=== PATIENT | female | born 1970 | race Caucasian/White ===

== ENCOUNTER 2018-07-08 13:23 | Inpatient (IN) | payer BC ==
--- NOTE | 2018-07-08 13:50 | ED ---
Complex/Multi-Sys Presentation - HPI Summary HPI Summary: This patient is a 48 year old F transferred from [place] to ED who was supposed to be a direct admit to [facility] but was denied due to not having a life vest unit on. Therefore, she will need to be on telemetry. The patient rates the pain 0/10 in severity. Symptoms aggravated by nothing. Symptoms alleviated by nothing. PMHx of gastric bipass, with complications including v-tach cardiac arrest on 05/29. - History Of Current Complaint Chief Complaint: EDGeneral Time Seen by Provider: 07/08/18 13:35 Hx Obtained From: Patient Onset/Duration: Lasting Hours, Still Present Severity Currently: None Aggravating Factor(s): nothing Alleviating Factor(s): nothing - Allergies/Home Medications Allergies/Adverse Reactions: Allergies Allergy/AdvReac Type Severity Reaction Status Date / Time fluconazole Allergy Unknown Verified 07/08/18 13:38 Reaction Details PMH/Surg Hx/FS Hx/Imm Hx Endocrine/Hematology History: Denies: Hx Diabetes Cardiovascular History: Reports: Hx Cardiac Arrest - v-tach cardiac arrest on Denies: Hx Hypertension GI History: Reports: Other GI Disorders - gastro bypass Infectious Disease History: No Infectious Disease History: Denies: Traveled Outside the [place] in Last 30 Days - Family History Known Family History: Positive: Cardiac Disease, Diabetes, Other Family History: CHF, sleep apnea, PNA - Social History Alcohol Use: None Substance Use Type: Reports: None Smoking Status (MU): Never Smoked Tobacco Review of Systems Positive: Other - was supposed to go to rehab, does not have life vest unit on, will need telemetry. Negative: Fever, Chills Negative: Erythema Negative: Sore Throat Negative: Chest Pain Negative: Shortness Of Breath, Cough Negative: Abdominal Pain, Vomiting, Nausea Negative: dysuria, hematuria Negative: Myalgia, Edema Negative: Rash Neurological: Other - denies dizziness All Other Systems Reviewed And Are Negative: Yes Physical Exam - Summary Physical Exam Summary: Constitutional: Well-developed, Well-nourished, Alert. (-) Distressed Skin: Warm, Dry HENT: Normocephalic; Atraumatic Eyes: Conjunctiva normal Neck: Musculoskeletal ROM normal neck. (-) JVD, (-) Stridor, (-) Tracheal deviation Cardio: Rhythm regular, rate normal, Heart sounds normal; Intact distal pulses; The pedal pulses are 2+ and symmetric. Radial pulses are 2+ and symmetric. (-) Murmur Pulmonary/Chest wall: Effort normal. (-) Respiratory distress, (-) Wheezes, (-) Rales Abd: Soft, (-) epigastric tenderness, (-) Distension, (-) Guarding, (-) Rebound Musculoskeletal: (-) Edema Lymph: (-) Cervical adenopathy Neuro: Alert, Oriented x3 Psych: Mood and affect Normal Triage Information Reviewed: Yes Vital Signs On Initial Exam: Initial Vitals Temp Pulse Resp BP Pulse Ox 97.5 F 90 20 123/68 95 07/08/18 13:37 07/08/18 13:37 07/08/18 13:37 07/08/18 13:37 07/08/18 13:37 Vital Signs Reviewed: Yes Diagnostics - Vital Signs Vital Signs Temp Pulse Resp BP Pulse Ox 07/08/18 13:37 97.5 F 90 20 123/68 95 - Laboratory Result Diagrams: 07/12/18 06:48 07/12/18 06:48 Lab Statement: Any lab studies that have been ordered have been reviewed, and results considered in the medical decision making process. - EKG 1352 Cardiac Rate: NL - 93 BPM EKG Rhythm: Sinus Rhythm Summary of EKG Findings: No STEMI Complex Multi-Symp Course/Dx Assessment/Plan: This patient is a 48 year old F transferred from [place] to ED who was supposed to be a direct admit to [facility] but was denied due to not having a life vest unit on. EKG done at 1352 reveals NSR at 93 BPM and no STEMI. The patient will be admitted to Dr. Arndt. Patient understands and agrees with this plan. - Diagnoses Provider Diagnoses: Tachyarrhythmia - Physician Notifications Discussed Care Of Patient With: Michelle Arndt Time Discussed With Above Provider: 16:20 Instructed by Provider To: Admit As Inpatient Discharge - Sign-Out/Discharge Documenting (check all that apply): Patient Departure - admit - Discharge Plan Condition: Stable Disposition: ADMITTED TO [facility] - Billing Disposition and Condition Condition: STABLE Disposition: Admitted to [facility] - Attestation Statements Document Initiated by Scribe: Yes Documenting Scribe: Ruperto Gates Provider For Whom Scribe is Documenting (Include Credential): Gopi Packer MD Scribe Attestation: I, Ruperto Gates, scribed for Gopi Packer MD on 07/12/18 at 1136. Scribe Documentation Reviewed: Yes Provider Attestation: The documentation as recorded by the scribe, Ruperto Gates accurately reflects the service I personally performed and the decisions made by me, Gopi Packer MD
[2018-07-08 13:59] LABS: Hematocrit 25 % (35-47); Hemoglobin 8.5 g/dl (12.0-16.0); Mean Corpuscular HGB Conc 34 g/dl (31-36); Mean Corpuscular Hemoglobin 31 pg (27-31); Mean Corpuscular Volume 91 fL (80-97); Mean Platelet Volume 6.6 um3 (7.4-10.4); Platelet Count 513 10^3/ul (150-450); Red Blood Count 2.78 10^6/ul (4.00-5.40); Red Cell Distribution Width 19 % (10.5-15); White Blood Count 10.9 10^3/ul (3.5-10.8)
[2018-07-08 14:18] LABS: EGFR Non-African American 115.5 (>60)
[2018-07-08] MEDS ORDERED: Fluticasone NASAL SPRAY 50MCG* 16 gm SPRAY BTL BOTH NARES PRN (17:49)
[2018-07-08] MEDS ORDERED: Bisacodyl SUPP* 10 MG SUPP PR PRN (18:15)
[2018-07-08] MEDS: Enoxaparin(*) 40 MG/0.4 ML SYR SUBCUT SCH (20:10)
[2018-07-08] MEDS ORDERED: Gabapentin TAB(NF) 600 MG PO SCH (21:00)
[2018-07-08] MEDS: Acetaminophen TAB* 325 MG PO PRN (21:18)
[2018-07-08] MEDS: Metoprolol Tartrate TAB* 50 mg PO SCH (21:18)
[2018-07-08] MEDS ORDERED: traMADol TAB* 50 MG PO ONE (21:45)
[2018-07-08 22:28] LABS: ABS Basophils 0.1 10^3/ul (0-0.2); ABS Eosinophils 0.1 10^3/ul (0-0.6); ABS Neutrophils 7.3 10^3/ul (1.5-7.7); ABS Nucleated RBC 0 10^3/ul; Eosinophil % 1.1 % (0-6); Hematocrit 25 % (35-47); Hemoglobin 8.2 g/dl (12.0-16.0); Lymphocyte % 19.4 % (25-47); Mean Corpuscular HGB Conc 33 g/dl (31-36); Mean Corpuscular Hemoglobin 30 pg (27-31); Mean Corpuscular Volume 91 fL (80-97); Mean Platelet Volume 6.8 um3 (7.4-10.4); Nucleated Red Blood Cells % 0.1; Platelet Count 480 10^3/ul (150-450); Red Cell Distribution Width 19 % (10.5-15); White Blood Count 10.5 10^3/ul (3.5-10.8)
[2018-07-08] MEDS ORDERED: Iohexol 350* (CONTRAST) 500 ML MDV IV ONE (23:38)
[2018-07-09] MEDS: Morphine VIAL* 4 MG/ML VIAL (1 ml vial) IV PRN ×2 (01:02→09:29)
--- NOTE | 2018-07-09 02:07 | RAD ---
EXAM: CT Angiography Chest With Intravenous Contrast EXAM DATE/TIME: 07/09/2018 1:24 AM CLINICAL HISTORY: 48 years old, female; Pain; Chest wall pain; Prior surgery; Surgery date: 6+ months; Surgery type: Gastric bypass/cardiac arrest post SX /hx of bilateral breast reduction; Additional info: Chest pain TECHNIQUE: Axial computed tomographic angiography images of the chest with intravenous contrast using CT angiography protocol. All CT scans at this facility use at least one of these dose optimization techniques: automated exposure control; mA and/or kV adjustment per patient size (includes targeted exams where dose is matched to clinical indication); or iterative reconstruction. Coronal and sagittal reformatted images were created and reviewed. MIP reconstructed images were created and reviewed. CONTRAST: 80 ml of OMNIPAQUE 350 administered intravenously. COMPARISON: No relevant prior studies available. FINDINGS: Pulmonary arteries: Pulmonary arteries are well opacified to the subsegmental branches. Dilated main pulmonary artery measuring 3.5 cm. No filling defects throughout the pulmonary artery tree. Aorta: Normal caliber aorta with no evidence of dissection or rupture. Lungs: Scattered lung parenchymal scarring including apical posterior segment right upper lobe, superior and inferior lingula, and basilar segments left lower lobe with associated mild traction bronchiectasis. No nodules or consolidation. No peribronchial thickening. Pleural space: Normal. No pneumothorax. No pleural effusion. Heart: Normal. No cardiomegaly. No pericardial effusion. Thyroid: No thyroid nodules. Bones/joints: No fractures. No suspicious bone lesions. Soft tissues: Normal. Lymph nodes: Normal. No enlarged lymph nodes. Stomach and bowel: Partially visualized gastric bypass with a gas containing tract extending to the peritoneum (series 2, image 103). IMPRESSION: 1. No pulmonary emboli. Findings which in the proper clinical setting can be seen in pulmonary hypertension. 2. 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 Consider followup with abdomen pelvis CT. 3. Scattered bilateral lung parenchymal scarring. To contact [facility] with a general question: Operations Center - [phone] For direct physician to physician contact: Physician Hotline - [phone] [facility] ([facility] Facility ID #[id number])
--- NOTE | 2018-07-09 04:15 | HP ---
CC: Jas Garza DO; Dr. Rangel; Dr. Carmona; Dr. Bam Davidson; Dr. Santino Rodrigez * HISTORY AND PHYSICAL: DATE OF ADMISSION: 07/08/18 TIME OF EVALUATION: 5:30 p.m. PRIMARY CARE PROVIDER: Jas Garza DO. REFERRING PHYSICIAN: Dr. Rangel CONSULTING HARP ACTION ASSEMBLER: Dr. Carmona EP HARP ACTION ASSEMBLER: Dr. Bam Davidson GENERAL SURGEON: Gurpreet Leonmira CHIEF COMPLAINT: "They sent me here." HISTORY OF PRESENT ILLNESS: Ms. Groves is a 48-year-old lady with a complex past medical history that includes obesity and hypertension. The patient underwent a gastric bypass at [facility] on 04/27/18. She had a very complicated, turbulent postop course including gastric perforation with need for surgical repair, prolonged intubation requiring tracheostomy, intraabdominal infection and abscesses that grew enterobacter, alpha hemolytic strep, C. diff colitis treated with antibiotics. On 05/29/18, the patient had polymorphic V-tach cardiac arrest and she was treated with amiodarone with plan for possible ICD in the future. Despite all these complications, the patient improved and she was transferred to long-term acute care facility ([facility]). She was weaned from vent. Her tracheostomy was closed and she is tolerating a oral diet. She was referred to [facility] for rehab at [facility], but when she arrived she was noted to not have LifeVest, so for the reason she was referred to the emergency room for further evaluation. Regarding her polymorphic VT, according to records, she had no further episodes of V-tach while at the [facility] located within [facility]. She was initially managed with IV amiodarone that was changed to oral when she was able to take p.o. again. The patient had been seen by Dr. Jimenez (operator weapon locating radar at [facility]) and as per records, the recommendation was to await at least 1 to 2 months before ICD implantation to make sure that she did not any residual infection before she could be evaluated for an ICD. The plan: EP had recommended LifeVest on discharge and ICD later, once the abdominal infection is resolved. As per discharge summary, "As the patient was critically ill when she had polymorphic VT, I am not very concerned that she will have another episode as she is stable. We will discharge the patient without LifeVest now (the patient is aware of the risk of being discharged without a LifeVest and she agrees). She will be seen by Cardiology stat at the acute rehab facility. Further decision making will happen after she has been seen by Cardiology. She will also be evaluated by EP as an outpatient in [place], [place]. Telemetry here has been unremarkable so far. EKG also not concerning for prolonged QT." Upon arrival to [facility], Dr. Rangel was concerned with the indication for LifeVest and the fact that his unit is not monitored by telemetry, so she was referred to the emergency room and they planned to have her admitted to telemetry now while we clarify the indications for LifeVest/ICD placement. The patient offers no complaints at this time. She is only frustrated about being in the emergency room. PAST MEDICAL HISTORY: 1. Morbid obesity status post Tila-en-Y gastric bypass at [facility] on 06/26/18, complicated by GJ anastomotic leak, GG fistula and intraabdominal abscesses with peritonitis secondary to gastric leak from recent Tila-en-Y and abdominal abscesses that grew enterobacter, eikenella, lactobacillus, and doron; status post IR drain of intraabdominal abscesses. 2. C. diff colitis. 3. Polymorphic ventricular tachycardia cardiac arrest on 05/29/18. 4. Acute respiratory failure with hypoxia requiring intubation and mechanical ventilation, tracheostomy. 5. Severe critical illness myopathy. 6. Hypertension. 7. Stage 2 to 3 decubitus, present on admission. 8. Oral candidiasis. 9. Severe protein-calorie malnutrition. 10. Delirium. MEDICATIONS LIST: 1. Acetaminophen 325 mg p.o. q.6 hours p.r.n. pain or fever. 2. Amiodarone 200 mg p.o. daily. 3. Bisacodyl 2 mg per rectum daily as needed for constipation. 4. Ferrous sulfate 325 mg p.o. daily. 5. Magnesium oxide 400 mg p.o. daily. 6. Metoprolol tartrate 50 mg p.o. b.i.d. ALLERGIES: With FLUCONAZOLE, the patient had QT prolongation. REVIEW OF SYSTEMS: A 14-point review of systems was performed and all the pertinent negative and positive findings are in the HPI. PHYSICAL EXAMINATION GENERAL: The patient is a middle aged lady lying on the stretcher, in no acute distress. VITAL SIGNS: Temperature 97.5, heart rate is 98, respiratory rate is 21, oxygen saturation is 95% on room air, blood pressure is 123/86. HEENT: Pupils are equal. Moist mucous membranes. She has a well healed tracheostomy site. CHEST: Breath sounds bilaterally in both bases. CVS: Normal S1, S2. Regular rate and rhythm. ABDOMEN: Obese, soft. There is a midline wound with a clean dressing, intact. She has multiple other small incisions where she had drains in the past. She has a G-tube in place in the left upper quadrant. Her abdomen is soft, nontender. Bowel sounds are present. EXTREMITIES: She has central muscle atrophy and mild edema. NEUROLOGIC: She is alert, awake, oriented x3. She is able to move all 4 extremities but she is considerably weak. LABORATORY AND IMAGING DATA: In the ED, the patient had a CBC that showed WBC of 10.9, hemoglobin of 8.5, hematocrit 25, platelets of 113. Chemistry showed a sodium of 137, potassium 4.3, chloride of 99, bicarb 27, BUN 33, creatinine 0.56, glucose 115, calcium 10.3, phosphorus 4.9, magnesium 2.2. LFTs are normal except for alk phos 274. EKG showed sinus rhythm at 93 beats per minute. There is borderline left axis deviation. QTC is 464. ASSESSMENT AND PLAN: Mrs. Groves is a 48-year-old lady with past medical history that includes obesity and hypertension who since April has had prolonged hospital stays associated with Tila-en-Y gastric bypass with multiple complications, respiratory failure, polymorphic ventricular tachycardia cardiac arrest who was referred from our rehab unit to the emergency room as she was discharged without a LifeVest and they need the situation to be clarified before receiving her in the rehab unit. 1. Polymorphic ventricular tachycardia. At this point, I have the discharge summary from the long-term acute care [facility], and I am going to get the records from [facility] to see the supervisor case loading, operator weapon locating radar consultation regarding ICD implantation. For now, she will be admitted under observation to telemetry and we are going to monitor her rhythm and depending on Cardiology's opinion, we will make arrangements for LifeVest placement. We are going to continue amiodarone and metoprolol. Her magnesium and potassium are normal. 2. Status post Tila-en-Y with multiple complications and infection. As per records, the patient's antibiotic course was completed. She is still has a midline wound that is wound and we will request a wound care consultation and also for her stage 2 decubitus that are present on admission. 3. Severe critical illness myopathy. PT/OT evaluation was requested. 4. Hypertension. Her blood pressure is controlled and we are going to continue metoprolol. 5. Stage 2 to 3 decubitus ulcer. A wound care consultation was requested. 6. DVT prophylaxis. The patient has a score of 3 on DVT prophylaxis risk assessment guide and she will be started on Lovenox. 7. Severe protein-calorie malnutrition. I am going to ask nutrition evaluation , as per records, the patient is on a regular diet during the day and tube feeds at night. 8. Code status is full. TIME SPENT: Approximately 60 minutes was spent to with the patient to review medical records, review physical examination to complete this admission, more than half of this time was spent [id number] with the patient and coordination of care. [id number]/[facility] #: [id number] DENICE
[2018-07-09 06:24] LABS: Hematocrit 25 % (35-47); Hemoglobin 8.4 g/dl (12.0-16.0); Mean Corpuscular HGB Conc 34 g/dl (31-36); Mean Corpuscular Hemoglobin 31 pg (27-31); Mean Corpuscular Volume 91 fL (80-97); Mean Platelet Volume 6.6 um3 (7.4-10.4); Platelet Count 466 10^3/ul (150-450); Red Blood Count 2.72 10^6/ul (4.00-5.40); Red Cell Distribution Width 18 % (10.5-15); White Blood Count 8.5 10^3/ul (3.5-10.8)
[2018-07-09] MEDS: Acetaminophen TAB* 325 MG PO PRN (06:42)
[2018-07-09 06:47] LABS: EGFR Non-African American 108.8 (>60)
[2018-07-09 07:13] LABS: ABS Basophils 0.1 10^3/ul (0-0.2); ABS Eosinophils 0.1 10^3/ul (0-0.6); ABS Lymphocytes 1.8 10^3/ul (1.0-4.8); ABS Monocytes 0.8 10^3/ul (0-0.8); ABS Neutrophils 5.7 10^3/ul (1.5-7.7); ABS Nucleated RBC 0 10^3/ul; Eosinophil % 1.5 % (0-6); Lymphocyte % 21.3 % (25-47); Nucleated Red Blood Cells % 0.1
--- NOTE | 2018-07-09 08:05 | RAD ---
HISTORY: right rib pain COMPARISONS: CT dated July 09, 2018. VIEWS: 1: frontal AP view of the chest at 9:55 PM FINDINGS: LINES AND TUBES: None. CARDIOMEDIASTINAL SILHOUETTE: The cardiomediastinal silhouette is normal for portable technique. PLEURA: The costophrenic angles are sharp. No pleural abnormalities are noted. LUNG PARENCHYMA: There is minimal linear atelectasis versus pleural parenchymal scarring of the left lung base. ABDOMEN: The upper abdomen is clear. There is no subphrenic gas. A radiopaque foreign object is noted overlying the left upper quadrant. On the torch operator film of the CT performed the same date, this is not present and is presumed to be artifactual. BONES AND SOFT TISSUES: No bone or soft tissue abnormalities are noted. IMPRESSION: NO ACTIVE CARDIOPULMONARY DISEASE. R1NF
[2018-07-09] MEDS: MAGNESIUM OXIDE 500 MG PO SCH (08:07)
[2018-07-09] MEDS: Ferrous Sulfate TAB* 325 MG PO SCH (08:08)
[2018-07-09] MEDS: Metoprolol Tartrate TAB* 50 mg PO SCH ×2 (08:08→19:53)
[2018-07-09] MEDS ORDERED: Ramipril CAP* 5 MG PO SCH (09:00)
[2018-07-09] MEDS ORDERED: Amiodarone TAB* 200 MG PO SCH (09:00)
[2018-07-09] MEDS ORDERED: Perflutren Lipid Microsphere* 3 ML VIAL ONE (09:59)
--- NOTE | 2018-07-09 12:28 | PN ---
Subjective Date of Service: 07/09/18 Interval History: HOSPITALIST PROGRESS NOTE Patient seen and examined at bedside. Care reviewed and d/w Juan Chavez RN. She feels very tired today. After ambulance trip, spending a long time in ED, she feels exhausted. Has some back pain and requests Morphine. Tolerating diet well with no N/V. She also developed urinary retention 500ml earlier today. Tele reviewed and shows sporadic PVCs, no Vtach. Family History: Unchanged from Admission Social History: Unchanged from Admission Past Medical History: Unchanged from Admission Objective Active Medications: Acetaminophen (Tylenol Tab*) 325 mg PO Q6H PRN PRN Reason: PAIN Last Admin: 07/09/18 06:42 Dose: 325 mg Amiodarone HCl (Cordarone Tab*) 200 mg PO DAILY [facility] Last Admin: 07/09/18 08:08 Dose: 200 mg Bisacodyl (Dulcolax Supp*) 10 mg OH DAILY PRN PRN Reason: CONSTIPATION Enoxaparin Sodium (Lovenox(*)) 40 mg SUBCUT Q24H [facility] Last Admin: 07/08/18 20:10 Dose: 40 mg Ferrous Sulfate (Ferrous Sulfate Tab*) 325 mg PO DAILY [facility] Last Admin: 07/09/18 08:08 Dose: 325 mg Metoprolol Tartrate (Lopressor Tab*) 50 mg PO BID [facility] Last Admin: 07/09/18 08:08 Dose: 50 mg Morphine Sulfate (Morphine Vial*) 2 mg IV Q4H PRN PRN Reason: PAIN - MILD Last Admin: 07/09/18 09:29 Dose: 2 mg Non Formulary* ( Magnesium Oxide [ Magnesium Oxide] 500 Mg) 500 mg PO DAILY [facility] Last Admin: 07/09/18 08:07 Dose: Not Given Vital Signs - 8 hr 07/09/18 07/09/18 07/09/18 07:26 09:29 10:36 Temperature 98.9 F Pulse Rate 94 Respiratory 16 16 16 Rate Blood Pressure 112/68 (mmHg) O2 Sat by Pulse 92 Oximetry Oxygen Devices in Use Now: None Appearance: Pleasant lady lying in bed in NAD Eyes: No Scleral Icterus Ears/Nose/Mouth/Throat: Mucous Membranes Moist Neck: Trachea Midline Respiratory: Symmetrical Chest Expansion and Respiratory Effort, Clear to Auscultation Cardiovascular: RRR - Normal S1 and S2 Abdominal: - - Soft, mild incisional tenderness, CDI to midline wound, multiple smaller surgical incisions where she had drains. G tube in place, BS+ Neurological: Alert and Oriented x 3 Result Diagrams: 07/09/18 06:15 07/09/18 06:15 Assess/Plan/Problems-Billing Assessment: Mrs Groves is a 48yo F with PMH of obesity s/p gastric bypass 04/24 with multiple complications including GJ anastomotic leak, GG fistula, intraabdominal abscesses/peritonitis, C diff colitis, respiratory failure requiring trach, polymorphic Vtach arrest, who was transferred to [facility] for rehab , but as she did not have a Life Vest, she was transferred to ED for further evaluation. - Patient Problems (1) Polymorphic ventricular tachycardia Comment: - Awaiting for the rest of her medical records. - Awaiting echo result and Cardiology consult re: indication and order for Life Vest. - Continue Amiodarone and Metoprolol. (2) Urinary retention Comment: - Bladder scan and straight cath as needed. (3) HTN (hypertension) Comment: - Controlled. - Continue Metoprolol. (4) Decubitus ulcer Comment: - Present on admission. - Will follow wound care recommendations. (5) Critical illness myopathy Comment: - Continue PT/OT as tolerated. (6) DVT prophylaxis Comment: - Lovenox. (7) Full code status
[2018-07-09] MEDS: Neomycin/Polym/Bacit TOP OINT* 15 GM TOPICAL SCH (15:23)
--- NOTE | 2018-07-09 16:17 | ECHO ---
Patient: CARY DUMONT [facility] Rec#: [id number] : 1970 Date: 07/09/2018 Age: 48y Height: 172.72 cm / 68.0 in Weight: 97.07 kg / 213.9 lbs Sex: F BSA: 2.1 Room#: [facility] Admit Date#: 07/08/2018 Type: Inpatient Referring: Michelle Meek MD Reading: Ottoniel Santoyo MD [employer] Specialist: Sonja rAanaMAJOR CC: Jas Garza, DO Transthoracic Echocardiogram Indication: Abnormal EKG, VT arrest. BP: 113/69 HR: 130 Rhythm: Tachycardia Findings Technical Comments: The study is technically limited due to poor apical windows. Completed at 1100. Left Ventricle: The left ventricular chamber size is normal. There is no left ventricular hypertrophy. There is global hypokinesis of the left ventricle with minor regional variation. There is mild to moderately decreased left ventricular systolic function. The estimated ejection fraction is 40-45%. relatively more pronounced hypokinesis in the inferior and posterior segments. Abnormal left ventricular diastolic function is observed. Abnormal left ventricular diastolic filling is observed, consistent with impaired relaxation. Left Atrium: The left atrial chamber size is normal. Right Ventricle: Moderator Band present. The right ventricular cavity size is normal. The right ventricular global systolic function is mildly reduced. Right Atrium: The right atrial cavity size is normal. Aortic Valve: The aortic valve is trileaflet. There is no evidence of aortic valve thickening. There is no evidence of aortic regurgitation. There is no evidence of aortic stenosis. Mitral Valve: The mitral valve leaflets are mildly thickened. There is trace to mild mitral regurgitation. There is no evidence of mitral stenosis. Tricuspid Valve: The tricuspid valve leaflets are normal. There is trace tricuspid regurgitation. The right ventricular systolic pressure is estimated at 17 mmHg. No pulmonary hypertension is noted. There is no tricuspid stenosis. Pulmonic Valve: The pulmonic valve appears normal. There is mild pulmonic regurgitation. There is no pulmonic stenosis. Pericardium: There is no significant pericardial effusion. A pericardial fat pad is visualized. Aorta: There is no dilatation of the ascending aorta. There is no dilatation of the aortic arch. The aortic root is normal in size. Pulmonary Artery: The main pulmonary artery is not well visualized. Venous: The inferior vena cava appears normal in size. There is a greater than 50% respiratory change in the inferior vena cava dimension. Contrast: Definity was used to optimize study. 3 mL of diluted Definity were utilized. Intravenous contrast was used to enhance endocardial border definition. Conclusions There is global hypokinesis of the left ventricle with minor regional variation. There is mild to moderately decreased left ventricular systolic function. The estimated ejection fraction is 40-45%. relatively more pronounced hypokinesis in the inferior and posterior segments. Abnormal left ventricular diastolic filling is observed, consistent with impaired relaxation. The right ventricular global systolic function is mildly reduced. There is trace to mild mitral regurgitation. There is trace tricuspid regurgitation. The right ventricular systolic pressure is estimated at 17 mmHg. There is mild pulmonic regurgitation. Compared to 05/31/18, the inferior posterior, and lateral wall motion abnormalities were present but the EF was reported as 55-59% and the MR was described as eccentric and moderate to severe. Measurements Name Value Normal Range RVIDd (AP) 2D 3.9 cm (0.9 - 2.6) RVDdMajor (2D) 4.2 cm (2.2 - 4.4) RAd ISD 4CH 4.7 cm (3.4 - 4.9) RA (A4C)W 3.6 cm (2.9 - 4.6) IVSd (2D) 0.9 cm (0.6 - 1) LVPWd (2D) 0.8 cm (0.6 - 1) LVIDd (2D) 4.8 cm (3.6 - 5.4) LVIDs (2D) 3.6 cm - LV FS (2D) 25 % (25 - 45) Aortic Annulus 2.3 cm (1.4 - 2.6) Ao root diameter (2D) 3.3 cm (2.1 - 3.5) Ascending Ao 3.1 cm (2.1 - 3.4) Aortic arch 2.4 cm (1.8 - 3.4) LA dimension (AP) 2D 3.4 cm (2.3 - 3.8) LAd ISD 4CH 4.6 cm (2.9 - 5.3) LA ISD 4CH W 3.5 cm (2.5 - 4.5) Name Value Normal Range LA ESV SP 4CH (A/L) 31 ml - LA ESV SP 2CH (A/L) 61 ml - LA ESV BP (A/L) 47 ml - LA ESV BP (A/L) index 22 ml/m2 - LA ESV SP 4CH (MOD) 29 ml - LA ESV SP 2CH (MOD) 58 ml - Name Value Normal Range MV E-wave Vmax 0.61 m/sec - MV deceleration time 270.7 msec - MV A-wave Vmax 0.69 m/sec - MV E:A ratio 0.8 ratio - LV septal e' Vmax 0.04 m/sec - LV lateral e' Vmax 0.08 m/sec - LV E:e' septal ratio 15.25 ratio - LV E:e' lateral ratio 7.63 ratio - Name Value Normal Range AV Vmax 1.1 m/sec - AV VTI 17.5 cm - AV peak gradient 4.64 mmHg - AV mean gradient 2.24 mmHg - LVOT Vmax 0.82 m/sec - LVOT VTI 12.86 cm - LVOT peak gradient 2.7 mmHg - LVOT mean gradient 1.33 mmHg - LIBAN Vmax 0.7 m/sec - Name Value Normal Range TR Vmax 1.9 m/sec - TR peak gradient 14 mmHg - RAP 3 mmHg - RVSP 17 mmHg - IVC diameter 1.5 cm - Name Value Normal Range PV Vmax 0.68 m/sec - PV peak gradient 1.86 mmHg - MN end-diastolic Vmax 1.03 m/sec -
[2018-07-09] MEDS ORDERED: PROCHLORPERAZINE INJ 5 MG/ML 2 ML VIAL IV PRN (16:35)
[2018-07-09] MEDS: Enoxaparin(*) 40 MG/0.4 ML SYR SUBCUT SCH (17:16)
--- NOTE | 2018-07-09 18:00 | CONS ---
CC: Dr. Bam Davidson; Dr. Santino Rodrigez; Jas Garza DO; Dr. Rangel; Dr. Santoyo. CARDIOLOGY CONSULTATION: DATE OF CONSULT: 07/09/18. CONSULTING PHYSICIAN: Dr. Da Silva. REASON FOR EVALUATION: Ventricular tachycardia. HISTORY OF PRESENT ILLNESS: History is obtained from the multiple records from her recent prolonged hospitalization and from the patient and Dr. Da Silva's note on 07/08/18. This is a very pleasant 48-year-old woman, who was in her usual state of health with borderline diabetes, borderline blood pressures until she went for gastric bypass surgery at [facility] on 04/27/18. She had a very complicated postoperative course that included hypotension and bradycardia. A CT was negative for pulmonary embolism, but did reveal air in the abdomen and a perforated anastomosis. She had a repeat seven-hour surgery to repair that and was intubated from 05/01/18 to 05/12/18. She was weaned off BiPAP, but developed a pelvic abscess and respiratory distress, and was intubated on . On 05/26/18, she actually was found to have multiple recurrent abscesses and a low hemoglobin and she was transfused. She also underwent interventional radiology drainage of some abdominal lesions. On 05/26/18, she was also noted to be bradycardic down to the low 20s. On 05/29/18, she was on Diflucan and broad-spectrum antibiotics and Precedex. She became unresponsive after extubation and developed polymorphic VT. She apparently had CPR and was reintubated. She was in normal sinus rhythm after a minute. She was started on amiodarone. She underwent trach placement on 06/02/18. In the records that showed that she had had QT prolongation, although the EP consult and EKG is not available. The Diflucan was stopped and changed to another antifungal, caspofungin on 05/29/18 due to QT prolongation and polymorphic VT. It seems as though the trach was reversed on 07/02/18. Of note, she had an echo preop in February, which was reported as EF of 55% to 60%, grade 1 diastolic dysfunction, trace MR, trace TR, normal PA pressure. However, on the echo from 05/29/18, post cardiac arrest on 05/31/18 revealed an EF of 55%, moderate inferior hypokinesia with possible eccentric MR and was suggested it be repeated when she was feeling better. It was mentioned that on 06/25/18, that they had the case with Dr. Jimenez of the EP. It was recommended that she have ICD implantation , but wait at least 1 to 2 months to make sure her infection had resolved and to continue amiodarone. It was also mentioned later in the chart that she was supposed to have a LifeVest in the interim until decision can be made to have ICD placement. The echo from 05/31/18, revealed moderate-sized inferior posterior lateral wall motion abnormality with hypokinesis to akinesis of the segments, qualitative EF was graded at 55 to 59%, [id number] eccentric MR probably from regional wall motion abnormality. Consider JOSE to exclude partial valve rupture, endocarditis. Tricuspid valve was inadequately visualized. Limited image resolution makes it impossible to assess for tricuspid mass, thrombus, vegetation or abscess. The patient was felt stable for transfer to rehab, however, the plan initially was to obtain a LifeVest for her prior to discharge. On the day of discharge, apparently the facility physician decided that she was low risk and was transferred without the defibrillator for a LifeVest. Because of the inability to be monitored on PMRU, she was admitted to telemetry and I was asked to regarding recommendations concerning her management. She denies any palpitations, syncope or near syncope prior to her surgery or since she has been awake and she was unaware of much of her hospitalization. She denies that she was limited prior to the surgery. She said that she was pretty active and worked out at gym for 30 minutes several days a week. She also worked as a special police officer and was able to walk for 3 to 4 miles a day at work. She denies previous murmurs or rheumatic heart disease. PAST MEDICAL HISTORY: Includes: 1. Borderline hypertension. 2. Borderline diabetes. 3. She denies hyperlipidemia or tobacco use. 4. She has a history of obesity. Her hospitalization from April until June is characterized by Tila-en-Y gastric bypass at [facility], complicated by gastroduodenal anastomotic leak, GG fistula and intraabdominal abscesses with peritonitis secondary to gastric leak from the Tila-en-Y. Her abdominal abscesses grew enterobacter, eikenella, lactobacillus, and doron. She was status post Interventional Radiology drainage of the intraabdominal abscesses. 5. C. difficile colitis. 6. Polymorphic VT. 7. Cardiac arrest on 05/29/18, possibly related to hypoxemia and QT prolongation possibly related to Diflucan. 8. Acute respiratory failure with hypoxia, requiring intubation, mechanical ventilation and tracheostomy. 9. Severe critical illness myopathy 10. Stage 2 to 3 decubitus present on admission to this hospitalization. 11. Oral candidosis, 12. Severe protein-calorie malnutrition. 13. LV dysfunction post arrest ?etiology PAST SURGICAL HISTORY: Includes: 1. Tila-en-Y on 04/27/18 as well as multiple procedures and surgeries after that complicated course. 2. She also has a history of right shoulder rotator cuff repair. 3. Breast reduction. 4. Tubal ligation. MEDICATIONS: Her medications as an inpatient include: 1. Acetaminophen. 2. Amiodarone 200 mg daily. 3. Dulcolax 10 mg daily p.r.n. 4. Lovenox 40 mg subcu q.24. 5. Ferrous sulfate 325 a day. 6. Metoprolol tartrate 50 mg b.i.d. 7. Morphine 2 mg IV q.4 hours. 8. Magnesium oxide 500 mg daily. FAMILY HISTORY: She has two children. Her mother of rectal cancer at 66. Brother is alive and well. Father is alive at 72 with COPD, CHF, diabetes and [employer] exposure. SOCIAL HISTORY: She has been living with her partner for 16 years and is engaged to be . She works as a reserve officer. REVIEW OF SYSTEMS: Review of systems x12 was negative except as above. She was nauseous and vomiting when I came in the room, she said that she has had that before on narcotics. She had not needed any narcotics for pain relief for the last two weeks and has not had any nausea, vomiting. Today, she had some back and took narcotics for the first time in a while and developed nausea and some dry heaves. PHYSICAL EXAM: She is a well-developed, well-nourished female, no apparent distress. Weighs 192 pounds. She reports that her weight was 233 prior to the surgery. Blood pressure 112/68, heart rate is 94, temperature 98.9. No significant JVD. Carotids 2+ without bruits. No cervical adenopathy or thyromegaly. Extraocular muscles intact. Sclerae anicteric. There is a scar consistent with her tracheostomy, which appears to be dry and intact. Cardiac Exam: S1 and S2 with a soft 1/6 holosystolic murmur at the apex. Chest was clear except for some rales at the right bases, which mostly cleared with coughing. Abdomen: There is a feeding tube placed in the left upper quadrant. Bowel sounds present. Nontender. Femoral pulses intact without bruits. Distal pulses intact. No edema. Motor strength mildly decreased in the upper extremities, decreased in the lower extremities probably 3/5. Deep tendon reflexes 2/4 in the upper extremities, 1/4 in the lower extremities. She is alert and oriented x3. Skin turgor was normal. DIAGNOSTIC STUDIES/LAB DATA: Chest x-ray from 07/09/18 reveals no active cardiopulmonary disease. She had a CT scan last night which reveled no pulmonary emboli. Fistulous tract from the patient's gastric bypass to the peritoneum, consider follow up with abdominopelvic CT. Scattered bilateral lung parenchymal scarring. Pulse oximetry overnight was low about 6 minutes and 56 seconds at 1.7% of the time. Labs include white count 8.5, hemoglobin 8.4, hematocrit 25, platelet count of 466. Sodium 138, potassium of 4.3, chloride of 99. BUN of 30 and creatinine of 0.59. BUN/creatinine ratio of 50.8, magnesium of 2.3, troponin is 0.01, 0.01, 0.01 x3 separate times. EKG revealed sinus rhythm with normal QT and Q-waves in III and F. Poor R-wave progression. IMPRESSION AND PLAN: My impression is that Ms. Hatch has a complex history as mentioned above with a history of gastric bypass on 04/27/18 complicated by perforation of the gastric bypass, as well as peritenonitis, multiple infections , respiratory failure, and polymorphic VT arrest in the setting of hypoxemia, extubation, and QT prolongation on Diflucan and ertapenem. There is also some question as to whether she had MR and LV dysfunction post arrest based on the old records and echo. The patient denies being told of any infarct. After reviewing her extensive transfer notes, I do not see any documentation of troponin elevation, EKG changes and no mention of LV dysfunction other than the echocardiogram, although I do not have the cariology consults or the EP consults or ekg's or lab results, which may have been performed. At this point, it remains unclear whether the polymorphic VT was secondary to hypoxemia and QT prolongation due to medications, or whether this is a primary issue. The notes seem to indicate a recommendation for ICD senior care, although the indication is unclear at this point. I have attempted to contact Dr. Jimenez and I was able to reach him during a procedure. He was unable to provide any further information at that time. He plans on getting back to me later today after he has a chance to review his consult. For the time being , I have recommended the following: Would continue with telemetry monitoring. I have ordered a LifeVest given the recommendation from EP that she should have an ICD and be on LifeVest until an ICD can be implanted. We will await contact from Dr. Jimenez concerning his recommendations. We will obtain an echo to reassess her LV function. We will consider tapering down her amiodarone given my concerns about having committing her to a long-term amiodarone given her young age and the possibility of medication-induced QT prolongation. She is to avoid QT prolonging drugs in the future. We will try to maintain her potassium and magnesium in the normal range. We would check PFTs. We would follow her thyroid functions. She has a significant anemia and elevated BUN. This raises the possibility of GI bleeding. We will consider to follow her closely for resolution of her anemia. She may benefit from a formal EP consult at some point during her convalescence. She understands that we do not have an EP MD on inpatient staff. Further recommendations will depend on her clinical course. Discussed with Dr. Da Silva Greater than 120 minutes were spent on this evaluation and coordination care. [id number]/[facility] #: [id number] ADDENDUM: from the 07/01/18 [facility] progress note: 10.7 "10 best run of NSVT while coughing." k 3.7, on amiodarone, metoprolol increased to 7.5 mg q6h "10.8 SVT and NSVT likely due to PICC malposition." "10.9 EP recommended Life Vest on discharge and ICD onced abdominal infection is resolved." MTDD
[2018-07-10] MEDS: MAGNESIUM OXIDE 500 MG PO SCH (10:07)
[2018-07-10] MEDS: Neomycin/Polym/Bacit TOP OINT* 15 GM TOPICAL SCH (10:15)
[2018-07-10] MEDS: Metoprolol Tartrate TAB* 50 mg PO SCH ×2 (10:18→21:18)
[2018-07-10] MEDS: Ferrous Sulfate TAB* 325 MG PO SCH (10:18)
[2018-07-10] MEDS: oxyCODONE TAB* 5 MG TAB PO PRN ×2 (10:18→21:18)
--- NOTE | 2018-07-10 10:39 | PN ---
Subjective Date of Service: 07/10/18 Interval History: Patient is mainly complaining of back pain today which is non-radicular and sharp, located on the left side of the lower spine. Patient denies ever having similar pain and states it was not present at previous facility. Patient states she thinks it was related to the ambulance ride. Patient gets moderate relief from Morphine but that it makes her too groggy to participate in PT and she has been trying to avoid using it. Patient denies CP, SOB, Dizziness, F/C, N/V, abdominal pain, diarrhea, dark stools, patient has not had a BM in 4 days. Family History: Unchanged from Admission Social History: Unchanged from Admission Past Medical History: Unchanged from Admission Objective Active Medications: Acetaminophen (Tylenol Tab*) 325 mg PO Q6H PRN PRN Reason: PAIN Last Admin: 07/09/18 06:42 Dose: 325 mg Amiodarone HCl (Cordarone Tab*) 100 mg PO DAILY [facility] Bisacodyl (Dulcolax Supp*) 10 mg NH DAILY PRN PRN Reason: CONSTIPATION Enoxaparin Sodium (Lovenox(*)) 40 mg SUBCUT Q24H [facility] Last Admin: 07/09/18 17:16 Dose: 40 mg Ferrous Sulfate (Ferrous Sulfate Tab*) 325 mg PO DAILY [facility] Last Admin: 07/10/18 10:18 Dose: 325 mg Iron Sucrose 200 mg/ Sodium (Chloride) 110 mls @ 110 mls/hr IVPB ONCE ONE Stop: 07/10/18 11:30 Metoprolol Tartrate (Lopressor Tab*) 50 mg PO BID [facility] Last Admin: 07/10/18 10:18 Dose: 50 mg Morphine Sulfate (Morphine Vial*) 2 mg IV Q4H PRN PRN Reason: PAIN - MILD Last Admin: 07/09/18 09:29 Dose: 2 mg Neomycin/Polymyxin/Bacitracin (Neosporin Top Oint Tube*) 1 applic TOPICAL DAILY [facility] Last Admin: 07/10/18 10:15 Dose: 1 applic Non Formulary* ( Magnesium Oxide [ Magnesium Oxide] 500 Mg) 500 mg PO DAILY [facility] Last Admin: 07/10/18 10:07 Dose: Not Given Oxycodone HCl (Roxycodone Tab*) 5 mg PO Q6H PRN PRN Reason: PAIN Last Admin: 07/10/18 10:18 Dose: 5 mg Trimethobenzamide HCl (Tigan Cap*) 300 mg PO Q6H PRN PRN Reason: NAUSEA Vital Signs - 8 hr 07/10/18 07/10/18 07/10/18 02:59 07:27 10:18 Temperature 98.9 F 99.6 F Pulse Rate 91 100 Respiratory 18 16 18 Rate Blood Pressure 131/74 138/80 (mmHg) O2 Sat by Pulse 96 97 Oximetry Oxygen Devices in Use Now: None Appearance: Patient is a 48yo female who appears stated age and is sitting in the bed in NAD. Eyes: No Scleral Icterus, PERRLA Ears/Nose/Mouth/Throat: NL Teeth, Lips, Gums, Clear Oropharnyx, Mucous Membranes Moist Neck: NL Appearance and Movements; NL JVP, Trachea Midline Respiratory: Symmetrical Chest Expansion and Respiratory Effort, Clear to Auscultation Cardiovascular: NL Sounds; No Murmurs; No JVD, RRR, No Edema Abdominal: No Hepatosplenomegaly, - - Obese, incision covered with dressing with small amount of sangiunous drainage. G-Tube with small amount of drainage surrounding without erythema. Normoactive bowel sounds. Extremities: No Edema Skin: No Nodules or Sclerosis Neurological: Alert and Oriented x 3, NL Sensation, NL Muscle Strength and Tone , - - CN II-XII intact. Result Diagrams: 07/09/18 06:15 07/09/18 06:15 Assess/Plan/Problems-Billing Assessment: Mrs Groves is a 48yo F with PMH of obesity s/p gastric bypass 04/24 with multiple complications including GJ anastomotic leak, GG fistula, intraabdominal abscesses/peritonitis, C diff colitis, respiratory failure requiring trach, polymorphic Vtach arrest, who was transferred to [facility] for rehab , but as she did not have a Life Vest, she was transferred to ED for further evaluation. - Patient Problems (1) Polymorphic ventricular tachycardia Current Visit: Yes Status: Acute Code(s): I47.2 - VENTRICULAR TACHYCARDIA SNOMED Code(s): 881456735 Comment: - Cardiology consultation appreciated. - Per Records patieht had a cardiac arrest with over 1 minute of Sustained Polymorphic Ventricular Tachycardia in the setting of QT prolongation due to diflucan. - Echo shows new decreased EF of 40-45 of unknown cause, Will need ischemic workup. - Decrease Amiodarone dose and continue Metoprolol. - Will need Life vest and implantable event monitor. (2) Anemia Current Visit: Yes Status: Acute Code(s): D64.9 - ANEMIA, UNSPECIFIED SNOMED Code(s): 291963578 Comment: - Stable hemoglobin at 8.5. - Needed transfusion due to post-operative anemia at prior facility. - Iron studies consistent with AOCD. Likely not absorbing oral iron due to Gastric Bypass and Inflammation - Will give IV iron. - Reticulocyte count pending. Check stool occult blood due to increased BUN/ Cret ratio (3) Decubitus ulcer Current Visit: Yes Status: Acute Code(s): L89.90 - PRESSURE ULCER OF UNSPECIFIED SITE, UNSPECIFIED STAGE SNOMED Code(s): 769810711 Comment: - Present on admission. - Antibiotic ointment and pressure reduction. (4) HTN (hypertension) Current Visit: Yes Status: Acute Code(s): I10 - ESSENTIAL (PRIMARY) HYPERTENSION SNOMED Code(s): 91620734 Comment: - Normotensive - Continue Metoprolol. (5) Critical illness myopathy Current Visit: Yes Status: Acute Code(s): G72.81 - CRITICAL ILLNESS MYOPATHY SNOMED Code(s): 967698660 Comment: - Continue PT/OT as tolerated. (6) Urinary retention Current Visit: Yes Status: Acute Code(s): R33.9 - RETENTION OF URINE, UNSPECIFIED SNOMED Code(s): 916993969 Comment: - Void without residual this AM. - Bladder scan PRN. (7) Clonus Current Visit: Yes Status: Acute Code(s): R25.8 - OTHER ABNORMAL INVOLUNTARY MOVEMENTS SNOMED Code(s): 40755525 Comment: - Mild clonus illicited in LE without other hyper reflexia. - New low back pain without radiculopathy - CT lumbar spine with and without contrast with follow-up MRI if negative. - Discussed with Neurology. - Symmetrical weakness in LE which is not new. (8) DVT prophylaxis Current Visit: Yes Status: Acute Code(s): XLC5229 - SNOMED Code(s): 799929593 Comment: - Lovenox. (9) Full code status Current Visit: Yes Status: Acute Code(s): Z78.9 - OTHER SPECIFIED HEALTH STATUS SNOMED Code(s): 849275401 Status and Disposition: Inpatient, PMRU at discharge.
[2018-07-10 10:42] LABS: Corrected Retic Count 2.7 % (0.5-1.5); Hematocrit for Retic CNT 25 % (35-47); Immature Retic Fraction 0.59; RBC Retic Count 2.76 10^6/ul (4.6-6.2)
[2018-07-10] MEDS ORDERED: Iron Sucrose* 200 MG in NS 0.9% 100 ML* 100 ML IVPB ONE (11:30)
[2018-07-10] MEDS: Trimethobenzamide CAP* 300 MG PO PRN (12:51)
[2018-07-10] MEDS: Morphine VIAL* 4 MG/ML VIAL (1 ml vial) IV PRN (16:52)
[2018-07-10] MEDS: Enoxaparin(*) 40 MG/0.4 ML SYR SUBCUT SCH (17:03)
[2018-07-10] MEDS ORDERED: Iohexol 300* (CONTRAST) 10 ML SDV IV SCH (17:24)
--- NOTE | 2018-07-10 20:01 | RAD ---
EXAM: CT Lumbar Spine Without and With Intravenous Contrast EXAM DATE/TIME: 07/10/2018 6:20 PM CLINICAL HISTORY: 48 years old, female; Signs and symptoms; Other: R/O clonus; Additional info: Low back pain, ? clonus TECHNIQUE: Axial computed tomography images of the lumbar spine without and with intravenous contrast. All CT scans at this facility use at least one of these dose optimization techniques: automated exposure control; mA and/or kV adjustment per patient size (includes targeted exams where dose is matched to clinical indication); or iterative reconstruction. Coronal and sagittal reformatted images were created and reviewed. CONTRAST: 116 ml of [id number] administered intravenously. COMPARISON: No relevant prior studies available. FINDINGS: Tubes, catheters and devices: Feeding tube partially visualized terminating in the proximal jejunum. Vertebrae: Normal lumbar lordosis without spondylolisthesis. Vertebral body heights are maintained. No fractures. Soft tissues: Normal normal. Vasculature: The aorta demonstrates mild atherosclerotic calcification. DISCS/SPINAL CANAL/NEURAL FORAMINA: L1-L2: There is no disc space narrowing. No canal stenosis or foraminal narrowing. The facet joints are normal. L2-L3: There is no disc space narrowing. No canal stenosis or foraminal narrowing. The facet joints are normal. L3-L4: There is no disc space narrowing. No canal stenosis or foraminal narrowing. The facet joints are normal. L4-L5: There is no disc space narrowing. No canal stenosis or foraminal narrowing. The facet joints are normal. L5-S1: There is no disc space narrowing. No canal stenosis or foraminal narrowing. The facet joints are normal. IMPRESSION: Normal lumbar spine CT. To contact [facility] with a general question: Operations Center - [phone] For direct physician to physician contact: Physician Hotline - [phone] [facility] ([facility] Facility ID #[id number])
[2018-07-11] MEDS: oxyCODONE TAB* 5 MG TAB PO PRN ×3 (04:00→21:35)
[2018-07-11] MEDS ORDERED: Iron Sucrose* 200 MG in NS 0.9% 100 ML* 100 ML IVPB ONE (09:00)
[2018-07-11] MEDS ORDERED: Polyethylene Glycol 3350* 17 GM PACKET PO PRN (09:18)
[2018-07-11] MEDS ORDERED: Senna TAB PO PRN (09:18)
[2018-07-11 09:34] LABS: ABS Basophils 0.1 10^3/ul (0-0.2); ABS Eosinophils 0.1 10^3/ul (0-0.6); ABS Lymphocytes 1.6 10^3/ul (1.0-4.8); ABS Monocytes 0.9 10^3/ul (0-0.8); ABS Nucleated RBC 0 10^3/ul; Eosinophil % 1.6 % (0-6); Hematocrit 25 % (35-47); Hemoglobin 8.7 g/dl (12.0-16.0); Lymphocyte % 18.3 % (25-47); Mean Corpuscular HGB Conc 34 g/dl (31-36); Mean Corpuscular Hemoglobin 31 pg (27-31); Mean Corpuscular Volume 91 fL (80-97); Mean Platelet Volume 6.9 fL (7.4-10.4); Nucleated Red Blood Cells % 0.1; Platelet Count 442 10^3/ul (150-450); Red Blood Count 2.78 10^6/ul (4.00-5.40); Red Cell Distribution Width 18 % (10.5-15); White Blood Count 8.8 10^3/ul (3.5-10.8)
[2018-07-11] MEDS: Amiodarone TAB* 200 MG PO SCH (09:36)
[2018-07-11] MEDS: Ferrous Sulfate TAB* 325 MG PO SCH (09:36)
[2018-07-11] MEDS: Metoprolol Tartrate TAB* 50 mg PO SCH (09:36)
[2018-07-11] MEDS: MAGNESIUM OXIDE 500 MG PO SCH (09:37)
[2018-07-11] MEDS: Neomycin/Polym/Bacit TOP OINT* 15 GM TOPICAL SCH (11:02)
--- NOTE | 2018-07-11 12:18 | PN ---
Subjective Date of Service: 07/11/18 Interval History: Patient is feeling poorly today with continued pain in her back, constipation, and weakness. Patient denies F/C, N/V, abdominal pain, dysuria, retention, CP, SOB, or other pain. Patient is bothered by her blood draws. Patient is reluctant to move due to pain. Family History: Unchanged from Admission Social History: Unchanged from Admission Past Medical History: Unchanged from Admission Objective Active Medications: Acetaminophen (Tylenol Tab*) 325 mg PO Q6H PRN PRN Reason: PAIN Last Admin: 07/09/18 06:42 Dose: 325 mg Amiodarone HCl (Cordarone Tab*) 100 mg PO DAILY [facility] Last Admin: 07/11/18 09:36 Dose: 100 mg Bisacodyl (Dulcolax Supp*) 10 mg [place] DAILY PRN PRN Reason: CONSTIPATION Enoxaparin Sodium (Lovenox(*)) 40 mg SUBCUT Q24H [facility] Last Admin: 07/10/18 17:03 Dose: 40 mg Ferrous Sulfate (Ferrous Sulfate Tab*) 325 mg PO DAILY [facility] Last Admin: 07/11/18 09:36 Dose: 325 mg Iohexol (Omnipaque 300* (Contrast)) 116 ml IV ONCE [facility] Stop: 07/12/18 17:23 Last Admin: 07/10/18 19:31 Dose: 116 ml Metoprolol Tartrate (Lopressor Tab*) 50 mg PO BID [facility] Last Admin: 07/11/18 09:36 Dose: 50 mg Morphine Sulfate (Morphine Vial*) 2 mg IV Q4H PRN PRN Reason: PAIN - MILD Last Admin: 07/10/18 16:52 Dose: 2 mg Neomycin/Polymyxin/Bacitracin (Neosporin Top Oint Tube*) 1 applic TOPICAL DAILY [facility] Last Admin: 07/11/18 11:02 Dose: 1 applic Non Formulary* ( Magnesium Oxide [ Magnesium Oxide] 500 Mg) 500 mg PO DAILY [facility] Last Admin: 07/11/18 09:37 Dose: Not Given Oxycodone HCl (Roxycodone Tab*) 5 mg PO Q6H PRN PRN Reason: PAIN Last Admin: 07/11/18 11:02 Dose: 5 mg Polyethylene Glycol/Electrolytes (Miralax*) 17 gm PO DAILY PRN PRN Reason: CONSTIPATION Senna (Senokot Tab*) 1 tab PO DAILY PRN PRN Reason: CONSTIPATION Trimethobenzamide HCl (Tigan Cap*) 300 mg PO Q6H PRN PRN Reason: NAUSEA Last Admin: 07/10/18 12:51 Dose: 300 mg Vital Signs - 8 hr 07/11/18 07/11/18 08:35 11:02 Temperature 97.8 F Pulse Rate 94 Respiratory 16 17 Rate Blood Pressure 119/63 (mmHg) O2 Sat by Pulse 97 Oximetry Oxygen Devices in Use Now: None Appearance: Patient is a 48yo female who appears stated age and is sitting in the bed in NAD. Eyes: No Scleral Icterus, PERRLA Ears/Nose/Mouth/Throat: NL Teeth, Lips, Gums, Clear Oropharnyx, Mucous Membranes Moist Neck: NL Appearance and Movements; NL JVP, Trachea Midline Respiratory: Symmetrical Chest Expansion and Respiratory Effort, Clear to Auscultation Cardiovascular: NL Sounds; No Murmurs; No JVD, RRR, No Edema Abdominal: NL Sounds; No Tenderness; No Distention, - - G-tube in place. Wound dressed without drainage, Lymphatic: No Cervical Adenopathy Extremities: No Edema, No Clubbing, Cyanosis Skin: No Nodules or Sclerosis, - - Midline incision. Decubitus ulcer not visualized. Neurological: Alert and Oriented x 3, NL Sensation, NL Muscle Strength and Tone , - - CN II-XII intact. Result Diagrams: 07/11/18 08:59 07/11/18 08:59 Assess/Plan/Problems-Billing Assessment: Mrs Groves is a 48yo F with PMH of obesity s/p gastric bypass 04/24 with multiple complications including GJ anastomotic leak, GG fistula, intraabdominal abscesses/peritonitis, C diff colitis, respiratory failure requiring trach, polymorphic Vtach arrest, who was transferred to [facility] for rehab , but as she did not have a Life Vest, she was transferred to ED for further evaluation. - Patient Problems (1) Polymorphic ventricular tachycardia Current Visit: Yes Status: Acute Code(s): I47.2 - VENTRICULAR TACHYCARDIA SNOMED Code(s): 591239845 Comment: - Cardiology consultation appreciated. - Per Records patieht had a cardiac arrest with over 1 minute of Sustained Polymorphic Ventricular Tachycardia in the setting of QT prolongation due to diflucan. - Echo shows new decreased EF of 40-45 of unknown cause, Will need ischemic workup. - Stress test Thursday - Brief episode of 2nd degree heart block type 2 with vomiting. - Decrease Amiodarone dose and decrease metoprolol. - Life vest in place. - Will consult with EP doctor with regards to updated recommendations. (2) Anemia Current Visit: Yes Status: Acute Code(s): D64.9 - ANEMIA, UNSPECIFIED SNOMED Code(s): 171720855 Comment: - Stable hemoglobin at 8.5. - Needed transfusion due to post-operative anemia at prior facility. - Iron studies consistent with AOCD. Likely not absorbing oral iron due to Gastric Bypass and Inflammation - Will give IV iron. - Reticulocyte count pending. Check stool occult blood due to increased BUN/ Cret ratio (3) Decubitus ulcer Current Visit: Yes Status: Acute Code(s): L89.90 - PRESSURE ULCER OF UNSPECIFIED SITE, UNSPECIFIED STAGE SNOMED Code(s): 382897435 Comment: - Present on admission. - Antibiotic ointment and pressure reduction. (4) HTN (hypertension) Current Visit: Yes Status: Acute Code(s): I10 - ESSENTIAL (PRIMARY) HYPERTENSION SNOMED Code(s): 44481379 Comment: - Normotensive - Decrease Metoprolol - Patient was on Clonidine patch at previous hospital which will be resumed. (5) Critical illness myopathy Current Visit: Yes Status: Acute Code(s): G72.81 - CRITICAL ILLNESS MYOPATHY SNOMED Code(s): 579672929 Comment: - Continue PT/OT as tolerated. (6) Urinary retention Current Visit: Yes Status: Acute Code(s): R33.9 - RETENTION OF URINE, UNSPECIFIED SNOMED Code(s): 309913752 Comment: - Voiding without residual - Bladder scan PRN. (7) Clonus Current Visit: Yes Status: Acute Code(s): R25.8 - OTHER ABNORMAL INVOLUNTARY MOVEMENTS SNOMED Code(s): 36439562 Comment: - Mild clonus illicited in LE without other hyper reflexia. Not able to be elicited today. - New low back pain without radiculopathy which is improving. - CT lumbar spine negative. - Discussed with Neurology. - Symmetrical weakness in LE which is not new. - No other hyper-reflexia (8) DVT prophylaxis Current Visit: Yes Status: Acute Code(s): EKB2732 - SNOMED Code(s): 640189539 Comment: - Keranox. (9) Full code status Current Visit: Yes Status: Acute Code(s): Z78.9 - OTHER SPECIFIED HEALTH STATUS SNOMED Code(s): 604275798 Status and Disposition: Inpatient, PMRU at discharge.
[2018-07-11] MEDS ORDERED: cloNIDine 0.1 MG PATCH* 0.1 MG/24 HR 7 DAY PATCH TRANSDERM SCH (13:00)
[2018-07-11] MEDS: Trimethobenzamide CAP* 300 MG PO PRN (17:50)
[2018-07-11] MEDS: Enoxaparin(*) 40 MG/0.4 ML SYR SUBCUT SCH (17:50)
[2018-07-11] MEDS: Metoprolol Tartrate TAB* 25 MG PO SCH (21:36)
[2018-07-12 07:03] LABS: ABS Basophils 0.1 10^3/ul (0-0.2); ABS Eosinophils 0.2 10^3/ul (0-0.6); ABS Lymphocytes 1.5 10^3/ul (1.0-4.8); ABS Monocytes 0.7 10^3/ul (0-0.8); ABS Neutrophils 4.3 10^3/ul (1.5-7.7); ABS Nucleated RBC 0 10^3/ul; Eosinophil % 2.5 % (0-6); Hematocrit 24 % (35-47); Hemoglobin 8.2 g/dl (12.0-16.0); Lymphocyte % 22.4 % (25-47); Mean Corpuscular HGB Conc 34 g/dl (31-36); Mean Corpuscular Hemoglobin 31 pg (27-31); Mean Corpuscular Volume 90 fL (80-97); Mean Platelet Volume 6.6 fL (7.4-10.4); Nucleated Red Blood Cells % 0.2; Platelet Count 397 10^3/ul (150-450); Red Blood Count 2.65 10^6/ul (4.00-5.40); Red Cell Distribution Width 18 % (10.5-15); White Blood Count 6.7 10^3/ul (3.5-10.8)
[2018-07-12 07:48] LABS: EGFR Non-African American 120.5 (>60)
[2018-07-12] MEDS: MAGNESIUM OXIDE 500 MG PO SCH (07:58)
[2018-07-12] MEDS: Neomycin/Polym/Bacit TOP OINT* 15 GM TOPICAL SCH (07:59)
[2018-07-12] MEDS: Ferrous Sulfate TAB* 325 MG PO SCH (07:59)
[2018-07-12] MEDS ORDERED: Metoprolol Tartrate TAB* 25 MG PO SCH (09:00)
[2018-07-12] MEDS ORDERED: Ondansetron INJ* 2 MG/ML VIAL IV ONE (10:23)
[2018-07-12] MEDS: Amiodarone TAB* 200 MG PO SCH (11:41)
[2018-07-12] MEDS ORDERED: Regadenoson* 0.4 MG/5 ML SYRINGE ONE (11:42)
[2018-07-12] MEDS: oxyCODONE TAB* 5 MG TAB PO PRN ×2 (11:42→21:36)
--- NOTE | 2018-07-12 12:30 | PN ---
Subjective Date of Service: 07/12/18 Interval History: . Pt reports she continues to feel weak. Reports nausea this morning which has now resolved. Denies CP/SOB. Family History: Unchanged from Admission Social History: Unchanged from Admission Past Medical History: Unchanged from Admission Objective Active Medications: Acetaminophen (Tylenol Tab*) 325 mg PO Q6H PRN PRN Reason: PAIN Last Admin: 07/09/18 06:42 Dose: 325 mg Amiodarone HCl (Cordarone Tab*) 100 mg PO DAILY [facility] Last Admin: 07/12/18 11:41 Dose: 100 mg Bisacodyl (Dulcolax Supp*) 10 mg [place] DAILY PRN PRN Reason: CONSTIPATION Last Admin: 07/11/18 16:38 Dose: 10 mg Clonidine HCl (Eaftrqhc-Gkp-8 0.1 Mg Patch*) 0.1 mg TRANSDERM Q7D [facility] Last Admin: 07/11/18 14:02 Dose: 0.1 mg Enoxaparin Sodium (Lovenox(*)) 40 mg SUBCUT Q24H [facility] Last Admin: 07/11/18 17:50 Dose: 40 mg Ferrous Sulfate (Ferrous Sulfate Tab*) 325 mg PO DAILY [facility] Last Admin: 07/12/18 07:59 Dose: 325 mg Iohexol (Omnipaque 300* (Contrast)) 116 ml IV ONCE [facility] Stop: 07/12/18 17:23 Last Admin: 07/10/18 19:31 Dose: 116 ml Metoprolol Tartrate (Lopressor Tab*) 25 mg PO BID [facility] Last Admin: 07/11/18 21:36 Dose: 25 mg Morphine Sulfate (Morphine Vial*) 2 mg IV Q4H PRN PRN Reason: PAIN - MILD Last Admin: 07/10/18 16:52 Dose: 2 mg Neomycin/Polymyxin/Bacitracin (Neosporin Top Oint Tube*) 1 applic TOPICAL DAILY [facility] Last Admin: 07/12/18 07:59 Dose: 1 applic Non Formulary* ( Magnesium Oxide [ Magnesium Oxide] 500 Mg) 500 mg PO DAILY [facility] Last Admin: 07/12/18 07:58 Dose: Not Given Oxycodone HCl (Roxycodone Tab*) 5 mg PO Q6H PRN PRN Reason: PAIN Last Admin: 07/12/18 11:42 Dose: 5 mg Polyethylene Glycol/Electrolytes (Miralax*) 17 gm PO DAILY PRN PRN Reason: CONSTIPATION Senna (Senokot Tab*) 1 tab PO DAILY PRN PRN Reason: CONSTIPATION Trimethobenzamide HCl (Tigan Cap*) 300 mg PO Q6H PRN PRN Reason: NAUSEA Last Admin: 07/11/18 17:50 Dose: 300 mg Vital Signs - 8 hr 07/12/18 07/12/18 07/12/18 07:12 08:00 11:42 Temperature 98.4 F Pulse Rate 94 Respiratory 16 18 16 Rate Blood Pressure 122/74 (mmHg) O2 Sat by Pulse 91 Oximetry Oxygen Devices in Use Now: None Appearance: 48 yo female laying in bed A+O x3 in NAD Eyes: No Scleral Icterus, PERRLA Respiratory: Symmetrical Chest Expansion and Respiratory Effort, Clear to Auscultation Cardiovascular: NL Sounds; No Murmurs; No JVD, RRR, No Edema Abdominal: NL Sounds; No Tenderness; No Distention, - - obese, J tube iintact Extremities: No Edema, No Clubbing, Cyanosis Skin: No Rash or Ulcers, No Nodules or Sclerosis Neurological: Alert and Oriented x 3, NL Sensation, NL Muscle Strength and Tone Lines/Tubes/Other Access: Clean, Dry and Intact Peripheral IV Nutrition: Taking PO's Result Diagrams: 07/12/18 06:48 07/12/18 06:48 Microbiology and Other Data: Microbiology 07/11/18 09:01 Stool Occult Blood (SELENE) - Final Stool Assess/Plan/Problems-Billing Assessment: Mrs Groves is a 48yo F with PMH of obesity s/p gastric bypass 04/24 with multiple complications including GJ anastomotic leak, GG fistula, intraabdominal abscesses/peritonitis, C diff colitis, respiratory failure requiring trach, polymorphic Vtach arrest, who was transferred to [facility] for rehab , but as she did not have a Life Vest, she was transferred to ED for further evaluation. - Patient Problems (1) Polymorphic ventricular tachycardia Comment: - Cardiology consultation appreciated. - Per Records patient had a cardiac arrest with over 1 minute of Sustained Polymorphic Ventricular Tachycardia in the setting of QT prolongation due to diflucan. - Echo shows new decreased EF of 40-45 of unknown cause, - Stress test today - results pending - Brief episode of 2nd degree heart block type 2 with vomiting. - Decrease Amiodarone dose and decrease metoprolol per cards. - Life vest in place. - Will consult with EP doctor with regards to updated recommendations. (2) Anemia Comment: - Stable hemoglobin at 8.5. - Needed transfusion due to post-operative anemia at prior facility. - Iron studies consistent with AOCD. Likely not absorbing oral iron due to Gastric Bypass and Inflammation - IV iron given on 07/11 - continue PO iron and continue to monitor. - Stool occult blood negative (3) Clonus Comment: - Mild clonus illicited in LE without other hyper reflexia. Not able to be elicited today. - New low back pain without radiculopathy which is improving. - CT lumbar spine negative. - Discussed with Neurology. - Symmetrical weakness in LE which is not new. - No other hyper-reflexia (4) Decubitus ulcer Comment: - Present on admission. - Antibiotic ointment and pressure reduction. (5) HTN (hypertension) Comment: - Normotensive - Metoprolol - Clonidine patch (6) DVT prophylaxis Comment: - Lovenox. (7) Full code status Status and Disposition: Inpatient, PMRU at discharge.
[2018-07-12] MEDS: Metoprolol Tartrate TAB* 25 MG PO SCH ×2 (13:39→21:36)
[2018-07-12] MEDS: Enoxaparin(*) 40 MG/0.4 ML SYR SUBCUT SCH (17:59)
[2018-07-12] MEDS: Trimethobenzamide CAP* 300 MG PO PRN (21:36)
[2018-07-13] MEDS: Ferrous Sulfate TAB* 325 MG PO SCH (08:41)
[2018-07-13] MEDS: Metoprolol Tartrate TAB* 25 MG PO SCH (08:42)
[2018-07-13] MEDS: MAGNESIUM OXIDE 500 MG PO SCH (08:42)
[2018-07-13] MEDS: Neomycin/Polym/Bacit TOP OINT* 15 GM TOPICAL SCH (08:42)
[2018-07-13] MEDS: Amiodarone TAB* 200 MG PO SCH (08:42)
[2018-07-13 08:54] LABS: ABS Basophils 0.1 10^3/ul (0-0.2); ABS Eosinophils 0.2 10^3/ul (0-0.6); ABS Lymphocytes 1.3 10^3/ul (1.0-4.8); ABS Monocytes 0.7 10^3/ul (0-0.8); ABS Neutrophils 5.4 10^3/ul (1.5-7.7); ABS Nucleated RBC 0 10^3/ul; Eosinophil % 2.1 % (0-6); Hematocrit 25 % (35-47); Hemoglobin 8.5 g/dl (12.0-16.0); Mean Corpuscular HGB Conc 34 g/dl (31-36); Mean Corpuscular Hemoglobin 31 pg (27-31); Mean Corpuscular Volume 91 fL (80-97); Mean Platelet Volume 6.8 fL (7.4-10.4); Nucleated Red Blood Cells % 0.1; Platelet Count 413 10^3/ul (150-450); Red Blood Count 2.76 10^6/ul (4.00-5.40); Red Cell Distribution Width 18 % (10.5-15); White Blood Count 7.6 10^3/ul (3.5-10.8)
[2018-07-13 09:06] LABS: EGFR Non-African American 123.1 (>60)
[2018-07-13] MEDS: Trimethobenzamide CAP* 300 MG PO PRN (10:39)
[2018-07-13] MEDS: oxyCODONE TAB* 5 MG TAB PO PRN ×2 (10:42→16:00)
[2018-07-13 11:35] VITALS: BP 110/67
--- NOTE | 2018-07-13 15:09 | DCNOTE ---
Subjective Date of Service: 07/13/18 Interval History: Patient reports she is feeling "a little better today". C/o the life vest band putting a little pressure on her epigastric area causing her some discomfort. She denies any CP/SOB. No fevers or chills. Agrees with DC to PMRU today. Discussed follow up with Dr. Santoyo and housing development specialist in [place] Family History: Unchanged from Admission Social History: Unchanged from Admission Past Medical History: Unchanged from Admission Objective Active Medications: Acetaminophen (Tylenol Tab*) 325 mg PO Q6H PRN PRN Reason: PAIN Last Admin: 07/09/18 06:42 Dose: 325 mg Amiodarone HCl (Cordarone Tab*) 100 mg PO DAILY [facility] Last Admin: 07/13/18 08:42 Dose: 100 mg Bisacodyl (Dulcolax Supp*) 10 mg [place] DAILY PRN PRN Reason: CONSTIPATION Last Admin: 07/11/18 16:38 Dose: 10 mg Clonidine HCl (Lfqzppwv-Gei-3 0.1 Mg Patch*) 0.1 mg TRANSDERM Q7D [facility] Last Admin: 07/11/18 14:02 Dose: 0.1 mg Enoxaparin Sodium (Lovenox(*)) 40 mg SUBCUT Q24H [facility] Last Admin: 07/12/18 17:59 Dose: 40 mg Ferrous Sulfate (Ferrous Sulfate Tab*) 325 mg PO DAILY [facility] Last Admin: 07/13/18 08:41 Dose: 325 mg Metoprolol Tartrate (Lopressor Tab*) 25 mg PO BID [facility] Last Admin: 07/13/18 08:42 Dose: 25 mg Morphine Sulfate (Morphine Vial*) 2 mg IV Q4H PRN PRN Reason: PAIN - MILD Last Admin: 07/10/18 16:52 Dose: 2 mg Neomycin/Polymyxin/Bacitracin (Neosporin Top Oint Tube*) 1 applic TOPICAL DAILY [facility] Last Admin: 07/13/18 08:42 Dose: 1 applic Non Formulary* ( Magnesium Oxide [ Magnesium Oxide] 500 Mg) 500 mg PO DAILY [facility] Last Admin: 07/13/18 08:42 Dose: Not Given Oxycodone HCl (Roxycodone Tab*) 5 mg PO Q6H PRN PRN Reason: PAIN Last Admin: 07/13/18 10:42 Dose: 5 mg Polyethylene Glycol/Electrolytes (Miralax*) 17 gm PO DAILY PRN PRN Reason: CONSTIPATION Senna (Senokot Tab*) 1 tab PO DAILY PRN PRN Reason: CONSTIPATION Trimethobenzamide HCl (Tigan Cap*) 300 mg PO Q6H PRN PRN Reason: NAUSEA Last Admin: 07/13/18 10:39 Dose: 300 mg Vital Signs - 8 hr 07/13/18 07/13/18 07/13/18 08:00 08:04 10:42 Temperature 97.3 F Pulse Rate 93 Respiratory 16 20 16 Rate Blood Pressure 126/78 (mmHg) O2 Sat by Pulse 94 Oximetry 07/13/18 07/13/18 07/13/18 11:11 11:35 12:38 Temperature 98.3 F 97.3 F Pulse Rate 100 89 Respiratory 18 20 16 Rate Blood Pressure 120/82 110/67 (mmHg) O2 Sat by Pulse 97 94 Oximetry Oxygen Devices in Use Now: None Appearance: 48 yo female laying ine bed watching tv in NAD - A+O x3 Eyes: No Scleral Icterus, PERRLA Ears/Nose/Mouth/Throat: NL Teeth, Lips, Gums, Mucous Membranes Moist Neck: NL Appearance and Movements; NL JVP Respiratory: Symmetrical Chest Expansion and Respiratory Effort Cardiovascular: NL Sounds; No Murmurs; No JVD, RRR, No Edema Abdominal: - - mild epigastric tenderness Skin: No Rash or Ulcers, No Nodules or Sclerosis Neurological: Alert and Oriented x 3, NL Sensation, NL Muscle Strength and Tone Lines/Tubes/Other Access: Clean, Dry and Intact Peripheral IV Nutrition: Taking PO's Result Diagrams: 07/13/18 08:32 07/13/18 08:32 Microbiology and Other Data: Microbiology 07/11/18 09:01 Stool Occult Blood (SELENE) - Final Stool Assess/Plan/Problems-Billing Assessment: Mrs Groves is a 48yo F with PMH of obesity s/p gastric bypass 04/24 with multiple complications including GJ anastomotic leak, GG fistula, intraabdominal abscesses/peritonitis, C diff colitis, respiratory failure requiring trach, polymorphic Vtach arrest, who was transferred to [facility] for rehab , but as she did not have a Life Vest, she was transferred to ED for further evaluation. - Patient Problems (1) Polymorphic ventricular tachycardia Comment: - Cardiology consultation appreciated. - Per Records patient had a cardiac arrest with over 1 minute of Sustained Polymorphic Ventricular Tachycardia in the setting of QT prolongation due to diflucan. - Echo shows new decreased EF of 40-45 of unknown cause, - Stress test today - low risk - discussed with Dr. Carmona who states he patient should keep the lifevest intact and follow up with Dr. Santoyo & EP as outpt. - Brief episode of 2nd degree heart block type 2 with vomiting. - Decrease Amiodarone dose and decrease metoprolol per cards. (2) Anemia Comment: - Stable hemoglobin at 8.5. - Needed transfusion due to post-operative anemia at prior facility. - Iron studies consistent with AOCD. Likely not absorbing oral iron due to Gastric Bypass and Inflammation - IV iron given on 07/11 - continue PO iron and continue to monitor. - Stool occult blood negative (3) Clonus Comment: - Mild clonus illicited in LE without other hyper reflexia. Not able to be elicited today. - New low back pain without radiculopathy which is improving. - CT lumbar spine negative. - Discussed with Neurology. - Symmetrical weakness in LE which is not new. - No other hyper-reflexia (4) Decubitus ulcer Comment: - Present on admission. - Antibiotic ointment and pressure reduction. (5) HTN (hypertension) Comment: - Normotensive - Metoprolol - Clonidine patch (6) DVT prophylaxis Comment: - Lovenox. (7) Full code status Status and Disposition: Inpatient, Discharge PMRU
--- NOTE | 2018-07-14 16:50 | DS ---
DISCHARGE SUMMARY: DATE OF ADMISSION: 07/08/18 DATE OF DISCHARGE: 07/13/18 PROVIDER: Nichole Nunn NP. ATTENDING PHYSICIAN: Dr. Rdz * (report dictated by Nichole Nunn NP). PRIMARY CARE PROVIDER: Dr. Jas Garza. DISCHARGED TO: [facility] DISCHARGE DIAGNOSES: 1. Weakness secondary to surgery complications. 2. Polymorphic ventricular tachycardia, now with LifeVest. 3. Severe critical myopathy. 4. Decubitus ulcer, stage 2 to 3. 5. Severe protein-calorie malnutrition. SECONDARY DIAGNOSES: 1. Morbid obesity, status post Tila-en-Y gastric bypass at [facility] on 06/26/18 complicated by GJ anastomotic leak , GG fistula, and intraabdominal abscesses with peritonitis secondary to gastric leak from recent Tila-en-Y and abdominal abscess that grew Enterobacter, and then Eikenella, Lactobacillus and Sana, status post IR drain of intraabdominal abscesses. 2. C. diff colitis. 3. Acute respiratory failure with hypoxia requiring intubation and mechanical ventilation and tracheostomy postoperatively. 4. Hypertension. 5. Oral candidus. 6. Delirium. 7. Polymorphic ventricular tachycardia cardiac arrest. DISCHARGE MEDICATIONS: 1. Acetaminophen 650 mg p.o. q.6 hours p.r.n. 2. Amiodarone 100 mg p.o. daily. 3. Clonidine HCL 0.1 mg transderm q.7 days. 4. Lovenox 40 mg subcu q.24 hours. 5. Ferrous sulfate 325 mg p.o. daily. 6. Metoprolol tartrate 25 mg p.o. b.i.d. 7. Oxycodone 5 mg p.o. q.6 hours p.r.n. 8. Compazine 10 mg p.o. q.8 hours p.r.n. 9. Senna 2 tabs p.o. at bedtime p.r.n. HISTORY OF PRESENT ILLNESS AND HOSPITAL COURSE: Please see history and physical by Dr. Michelle Da Silva for full admission details, but in summary, this is a 48-year- old female with a complex past medical history that includes obesity and hypertension, for which she underwent a gastric bypass at [facility] on 04/27/18 and had a complicated postoperative course including gastric perforation with need for surgical repair, prolonged intubation requiring tracheotomy, intraabdominal infection and abscesses, and C. diff colitis. On , the patient had polyp morphine VT cardiac arrest and she was treated with amiodarone with plan for possible ICD in the future. The patient did slowly improve and the patient was transferred to long-term acute care facility ([facility]) and was able to weaned off her vent via the tracheostomy and her tracheostomy has closed and was tolerating oral diet. She was referred to [facility] [place] [facility] at [facility] when she arrived and did not have her LifeVest. For that reason, she was transferred to the Emergency Department for further evaluation. She was admitted to the hospitalist service. Regarding her polymorphic VT, she has had no further episodes of V-tach while at the [facility] or throughout this hospitalization. On admission to [facility], she was on amiodarone 200 mg p.o. daily, but this was decreased to 100 mg daily in recommendation by the compressed gas equipment mechanic. The patient has been monitored on telemetry. She has done well throughout her hospitalization and is stable to be discharged to [facility] today. She was noted to have a significant anemia and has been given several doses of IV iron and continued on oral iron. This should be continued to be monitored. As well, she had a decubitus ulcer present on admission, which has been treated by the wound nurse. She was seen in consultation by compressed gas equipment mechanic, Dr. Santoyo, as well as Dr. Vickers recommending the patient should keep the LifeVest intact and follow up with Cardiology and EP as outpatient. I did speak with Dr. Vickers today who recommended the patient see Dr. Santoyo, compressed gas equipment mechanic, as an outpatient as the patient was initially seen by him in consultation in the hospital. She also did go under a cardiac nuclear stress test that placed her at low risk. The patient was noted to have mild clonus elicited in the lower extremity without other hyperreflexia. New low back pain without radiculopathy, which has been improving. She had a CT lumbar spine, which is negative. Symmetrical weakness in her lower extremities is not new. She had no other further episodes of clonus and had no other noted hyperreflexia. The patient is motivated to undergo physical therapy in hopes to get back to her baseline. The patient has remained afebrile throughout her hospitalization and hemodynamically stable. DISCHARGE PLAN: 1. Discharge to [facility]. 2. Followup with Dr. Santoyo, cardiology, within 2 to 4 weeks. 3. Followup with commission specialist in [place], . 4. The patient is eating a regular diet and taking enteral feedings at night with Promote without fiber at 80 mL an hour for 12 hours between 1800 and 0600 with q.4 hours 200 mL free water flush. TIME SPENT: Approximately 60 minutes were spent on this discharge. NICHOLE NUNN, JAY [id number]/CPS #: [id number] DENICE
== END 2018-07-13 16:08 | DRG 201 ==
LOC: ED 13:23 → MEDTELE 17:46 → OBSVTOIN 07-10 10:29
PROVIDERS: ADMIT Internal Medicine; ATTEND Internal Medicine
DX: I47.2 Ventricular tachycardia (principal); L89.93 Pressure ulcer of unspecified site, stage 3; E43 Unspecified severe protein-calorie malnutrition; G72.81 Critical illness myopathy; B37.0 Candidal stomatitis; E66.01 Morbid (severe) obesity due to excess calories; Z93.1 Gastrostomy status; I10 Essential (primary) hypertension; R41.0 Disorientation, unspecified; D64.9 Anemia, unspecified; R53.1 Weakness; R33.9 Retention of urine, unspecified; R25.8 Other abnormal involuntary movements; Z98.84 Bariatric surgery status; Z68.30 Body mass index [BMI] 30.0-30.9, adult; Z79.1 Long term (current) use of non-steroidal anti-inflammatories (NSAID); Z79.899 Other long term (current) drug therapy; Z88.8 Allergy status to other drugs, medicaments and biological substances
CPT/HCPCS: 36415; 71045; 71275; 72133; 78452; 80048; 80053; 82272; 82607; 82728; 82746; 83540; 83550; 83735; 83880; 84100; 84436; 84439; 84443; 84481; 84484; 85025; 85027; 85045; 86140; 93005; 93017; 93306; 96372; 99283; A9270-GY; A9505; C8929; G0378; J0780; J1650; J1756; J2270; J2785; Q9967

== ENCOUNTER 2018-07-13 15:05 | Inpatient (IN) | payer BC ==
--- OUTSIDE RECORDS SUMMARY | 2018-07-13 16:21 | XMS REPORT ---
:1970 External Reference #:[id number] Demographics Phone Unavailable Preferred Language Unknown Marital Status Unknown Buddhism Affiliation Unknown Race Unknown Ethnic Group Unknown Author Organization [facility] Address [address] [place] [id number] Phone [phone] Care Team Providers Name Role Phone Joel Carmona DO [facility] Care Team Information Nurse Practitioner Physicians Assistant Unavailable Problems Description No Information Social History Description No Information Available Allergies, Adverse Reactions, Alerts Description No Information Medications Description No Information Results Description No Information Procedures Description No Information Plan of Care No Information Available
--- OUTSIDE RECORDS SUMMARY | 2018-07-13 16:21 | XMS REPORT ---
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
[2018-07-13] MEDS ORDERED: Acetaminophen TAB* 325 MG PO PRN (17:45)
[2018-07-13] MEDS ORDERED: Senna TAB PO PRN (17:45)
[2018-07-13] MEDS: Enoxaparin(*) 40 MG/0.4 ML SYR SUBCUT SCH (18:14)
--- NOTE | 2018-07-13 20:11 | HP ---
ADMISSION HISTORY AND PHYSICAL: DATE OF ADMISSION: 07/13/18 REASON FOR ADMISSION: Critical care myopathy. HISTORY OF PRESENT ILLNESS: Ana Laura Groves is a 48-year-old female. She has a medical history significant for peripheral neuropathy, which developed in 2014. It is idiopathic. She also has a history of obesity. The patient had a gastric bypass done at [facility] on 04/27/18. Following that surgery, she was hypotensive and bradycardic and the rapid response team was called. She had a CT angiogram that did not show a PE. CT of her abdomen showed free air noted from the gastric anastomotic site that was concerning for perforation. She went to the OR again on 05/01/18 for a 7-hour procedure. She returned to the OR on mechanical ventilation and stayed intubated until . At that time, she was extubated to BiPAP. She had multiple infections and was treated with broad-spectrum antibiotics. She was treated for acute kidney injury, 05/03/18. There was trouble weaning her off the vent. There was a pelvic abscess noted which was drained by Interventional Radiology and a drain was left in place. She also developed C. diff colitis and was given oral vancomycin and Flagyl. She had a G-tube placed and a stage 2 decubitus ulcer. She was transferred to [facility] on 05/20/18. She developed respiratory distress at [facility]. CAT scan of her abdomen and pelvis showed multiple abscesses and she was anemic with a hemoglobin of 5.8. She was transfused 2 units of packed cells. She underwent another interventional radiology drain of fluid collection. She was on broad-spectrum antibiotics as well as IV Diflucan and Precedex. On 05/29/18, she had a polymorphic V-tach cardiac arrest. She later was back in sinus rhythm. She was kept on amiodarone. The patient had a tracheostomy placed on 06/02/18. She was eventually weaned off the vent. Her trach was capped on 06/24/18. The patient' s wounds eventually healed, although she did have ongoing trouble with a pressure ulcer. As far as her abdomen was concerned, the patient initially had multiple abscesses as mentioned. She was started on tube feeds through her gastrostomy tube. She also on 06/29/18 started on a clear liquid diet and slowly advanced. It was felt that the patient had weakness in both upper and lower extremities which exceeded just immobility. It was felt that she had critical care myopathy. Her legs were weaker than her arms. She was felt to have physical therapy and occupational therapy needs. She was set to be admitted to rehab on , 07/08/18. However, it was understood that the patient would be coming with a LifeVest. When the patient did not report to rehab with a LifeVest from the [facility], the patient was admitted to the acute services at [facility] where Cardiology could evaluate her to see if a LifeVest was necessary. The patient does now have a LifeVest and is ready to begin rehabilitation. PAST MEDICAL HISTORY: Notable for obesity and peripheral neuropathy. Otherwise , as noted above. CURRENT MEDICATIONS: Include: 1. Lopressor. 2. Amiodarone. 3. She is on a Catapres patch. 4. Oxycodone for pain relief. 5. Tylenol. ALLERGIES: Listed to DIFLUCAN because of her episode of V-tach arrest, which was felt to be caused by DIFLUCAN. SOCIAL HISTORY: She lives with her significant other and their 16-year-old daughter in a two-vivi house in [place]. 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 She is a nonsmoker. A rare drinker. REVIEW OF SYSTEMS: The patient reports no current shortness of breath or chest pain. PHYSICAL EXAMINATION VITAL SIGNS: The patient's temperature is 97.8, blood pressure is 117/79, pulse 95, respirations 16. HEENT: Her extraocular movements are intact. NECK: Supple. LUNGS: Sounded clear to auscultation bilaterally. HEART: Sounds are regular. S1 and S2 are audible. ABDOMEN: Shows multiple scars. She has a G-tube in place. Midline incision site not healed EXTREMITIES: Her lower extremities have 1+ edema. They have decreased muscle tone. Peripheral pulses were intact. NEUROLOGIC: The patient was awake, alert, oriented. Muscle strength in her left upper extremity was about 4/5, right upper extremity was 4+/5, both lower extremities were about 2/5. SKIN: 3 x 5 cm open area on right buttock, Stage III FUNCTIONAL EXAM: Transfers are dependent. ASSESSMENT: A 48-year-old female who underwent a Tila-en-Y gastric bypass complicated by sepsis and anastomotic leak, multiple abdominal abscesses, acute respiratory distress, and polymorphic ventricular tachycardia, now with critical care myopathy. PLAN: Integrate her to a comprehensive and therapeutic rehab program with the following goals: 1. Physical Therapy will work with the patient. They are going to work on functional transfer training, ambulation training with a walker. 2. Occupational Therapy will see the patient and work on her activities of daily living including toileting and toilet transfers. 3. Lovenox for DVT prophylaxis. 4. Adequate analgesia. 5. Her bowels will be regulated. 6. We are going to continue tube feeds at this point, Promote at 80 cc an hour for 12 hours a day with water flushes. She can continue to eat orally and will follow calorie counts. 7. Pressure ulcer on bottom. Routine local care. Wound center consult is needed. 8. creative services director will be closely involved to make sure that any services and equipment that the patient requires are in place prior to discharge. 9. Family training as appropriate. 10. Advance directives: The patient is a full code. 11. Home with appropriate services. ESTIMATED LENGTH OF STAY: Four weeks. [id number]/CPS #: [id number]
[2018-07-13] MEDS: Metoprolol Tartrate TAB* 25 MG PO SCH (20:20)
[2018-07-13] MEDS: oxyCODONE TAB* 5 MG TAB PO PRN (22:14)
[2018-07-14 06:53] LABS: ABS Basophils 0.1 10^3/ul (0-0.2); ABS Eosinophils 0.2 10^3/ul (0-0.6); ABS Monocytes 0.7 10^3/ul (0-0.8); ABS Nucleated RBC 0 10^3/ul; Eosinophil % 3.4 % (0-6); Hematocrit 24 % (35-47); Hemoglobin 8.3 g/dl (12.0-16.0); Lymphocyte % 16.8 % (25-47); Mean Corpuscular HGB Conc 34 g/dl (31-36); Mean Corpuscular Hemoglobin 31 pg (27-31); Mean Corpuscular Volume 91 fL (80-97); Mean Platelet Volume 6.8 fL (7.4-10.4); Nucleated Red Blood Cells % 0.1; Platelet Count 366 10^3/ul (150-450); Red Blood Count 2.66 10^6/ul (4.00-5.40); Red Cell Distribution Width 19 % (10.5-15); White Blood Count 5.9 10^3/ul (3.5-10.8)
[2018-07-14 07:13] LABS: INR 0.94 (0.77-1.02)
[2018-07-14 07:31] LABS: EGFR Non-African American 125.9 (>60)
[2018-07-14] MEDS: Prochlorperazine TAB* 10 MG PO PRN (08:12)
[2018-07-14] MEDS: oxyCODONE TAB* 5 MG TAB PO PRN ×3 (08:13→21:06)
[2018-07-14] MEDS: Ferrous Sulfate TAB* 325 MG PO SCH (09:41)
[2018-07-14] MEDS: Amiodarone TAB* 200 MG PO SCH (09:41)
[2018-07-14] MEDS: Metoprolol Tartrate TAB* 25 MG PO SCH ×2 (09:41→21:06)
[2018-07-14] MEDS: Enoxaparin(*) 40 MG/0.4 ML SYR SUBCUT SCH (17:48)
--- NOTE | 2018-07-14 19:56 | PN ---
Progress Note Date of Service: 07/14/18 Note: CARY DUMONT was visited. Therapy notes read and reviewed. She had an exhausting first day. She has a lot of back pain. She has a pressure ulcer on her buttock. She also notes some indigestion. Current Medications: Active Medications Generic Name Dose Route Start Last Admin Trade Name Freq PRN Reason Stop Dose Admin Acetaminophen 650 mg 07/13/18 17:45 07/13/18 20:20 Tylenol Tab* PO 650 mg Q6H PRN Administration FEVER/PAIN Amiodarone HCl 100 mg 07/14/18 09:00 07/14/18 09:41 Cordarone Tab* PO 100 mg DAILY MARCELA Administration Clonidine HCl 0.1 mg 07/18/18 09:00 [id number] 0.1 Mg Patch* TRANSDERM Q7D MARCELA Enoxaparin Sodium 40 mg 07/13/18 18:00 07/14/18 17:48 Lovenox(*) SUBCUT 40 mg Q24H MARCELA Administration Ferrous Sulfate 325 mg 07/14/18 09:00 07/14/18 09:41 Ferrous Sulfate Tab* PO 325 mg DAILY MARCELA Administration Metoprolol Tartrate 25 mg 07/13/18 21:00 07/14/18 09:41 Lopressor Tab* PO 25 mg BID MARCELA Administration Oxycodone HCl 5 mg 07/13/18 17:53 07/14/18 14:48 Roxycodone Tab* PO 5 mg Q6H PRN Administration PAIN - MODERATE TO SEVERE Prochlorperazine 10 mg 07/13/18 17:55 07/14/18 08:12 Compazine Tab* PO 10 mg Q8HR PRN Administration NAUSEA Senna 2 tab 07/13/18 17:45 Senokot Tab* PO BEDTIME PRN CONSTIPATION Vital Signs: Vital Signs Temp Pulse Resp BP Pulse Ox 98.5 F 93 16 125/88 96 07/14/18 17:04 07/14/18 17:04 07/14/18 17:18 07/14/18 17:04 07/14/18 18:07 Lab Results: Laboratory Results - last 24 hr 07/14/18 07/14/18 07/14/18 06:04 06:04 06:04 WBC 5.9 RBC 2.66 L Hgb 8.3 L Hct 24 L MCV 91 MCH 31 MCHC 34 RDW 19 H Plt Count 366 MPV 6.8 L Neut % (Auto) 67.5 Lymph % (Auto) 16.8 L [place] % (Auto) 11.4 H Eos % (Auto) 3.4 Baso % (Auto) 0.9 Absolute Neuts (auto) 4.0 Absolute Lymphs (auto) 1.0 Absolute Monos (auto) 0.7 Absolute Eos (auto) 0.2 Absolute Basos (auto) 0.1 Absolute Nucleated RBC 0 Nucleated RBC % 0.1 INR (Anticoag Therapy) 0.94 Sodium 135 Potassium 3.7 Chloride 98 L Carbon Dioxide 27 Anion Gap 10 BUN 19 Creatinine 0.52 Est GFR ( Amer) 152.3 Est GFR (Non-Af Amer) 125.9 BUN/Creatinine Ratio 36.5 H Glucose 135 H Calcium 9.6 Total Bilirubin 0.40 AST 22 ALT 27 Alkaline Phosphatase 249 H Total Protein 7.2 Albumin 3.5 Globulin 3.7 Albumin/Globulin Ratio 0.9 L Exam: GENERAL: affect slightly flat LUNGS: clear bilaterally HEART: reg rhythm ABDOMEN: Soft. Midline wound. GTube EXTREMITIES: decreased tone in LEs NEUROLOGIC: 2/5 strength in LEs. 4/5 LUE, 4+/5 RUE Assessment/Plan: 1. Critical Care Myopathy: PT/OT 2. S/P Tila-en-Y Gastric Bypass, Peforation, Multiple Abcesses: Tolerating PO 3. Polymorphic VT Arrest, possibly from IV diflucan: Life Vest, Amiodarone, Lopressor 4. Malnutrition: Promote TF at 80 ml/hr through GTube, 6P-6A. H2O flush. PO 5. Pressure Ulcer: Local care, nutritional support 6. Advanced Directives: Full code 7. DVT Prophylaxis: Lovenox 07/14/18 19:56 07/14/18 20:00
[2018-07-15] MEDS: Amiodarone TAB* 200 MG PO SCH (09:44)
[2018-07-15] MEDS: Ferrous Sulfate TAB* 325 MG PO SCH (09:45)
[2018-07-15] MEDS: oxyCODONE TAB* 5 MG TAB PO PRN ×2 (09:45→17:03)
[2018-07-15] MEDS: Metoprolol Tartrate TAB* 25 MG PO SCH ×2 (09:45→20:59)
[2018-07-15] MEDS ORDERED: Docusate CAP* 100 MG PO ONE (10:49)
[2018-07-15] MEDS ORDERED: Polyethylene Glycol 3350* 17 GM PACKET PO PRN (10:50)
[2018-07-15] MEDS ORDERED: Bisacodyl SUPP* 10 MG SUPP PR PRN (11:26)
[2018-07-15] MEDS: Enoxaparin(*) 40 MG/0.4 ML SYR SUBCUT SCH (17:53)
--- NOTE | 2018-07-15 19:36 | PN ---
Progress Note Date of Service: 07/15/18 Note: CARY DUMONT was visited. Therapy notes read and reviewed. She was able to have a BM after a dulcolax suppository. She was nauseated and hopefully this will help. She has a little trouble with water flushes. Will lower to 75 ml Q 2 hour while hooked up to TF. Will try 60 Q 3 off TF Current Medications: Active Medications Generic Name Dose Route Start Last Admin Trade Name Freq PRN Reason Stop Dose Admin Acetaminophen 650 mg 07/13/18 17:45 07/13/18 20:20 Tylenol Tab* PO 650 mg Q6H PRN Administration FEVER/PAIN Amiodarone HCl 100 mg 07/14/18 09:00 07/15/18 09:44 Cordarone Tab* PO 100 mg DAILY MARCELA Administration Bisacodyl 10 mg 07/15/18 11:26 07/15/18 17:46 Dulcolax Supp* MN 10 mg DAILY PRN Administration CONSTIPATION Clonidine HCl 0.1 mg 07/18/18 09:00 [id number] 0.1 Mg Patch* TRANSDERM Q7D MARCELA Docusate Sodium 100 mg 07/15/18 21:00 Colace Cap* PO BID MARCELA Enoxaparin Sodium 40 mg 07/13/18 18:00 07/15/18 17:53 Lovenox(*) SUBCUT 40 mg Q24H MARCELA Administration Ferrous Sulfate 325 mg 07/14/18 09:00 07/15/18 09:45 Ferrous Sulfate Tab* PO 325 mg DAILY MARCELA Administration Metoprolol Tartrate 25 mg 07/13/18 21:00 07/15/18 09:45 Lopressor Tab* PO 25 mg BID MARCELA Administration Oxycodone HCl 5 mg 07/13/18 17:53 07/15/18 17:03 Roxycodone Tab* PO 5 mg Q6H PRN Administration PAIN - MODERATE TO SEVERE Polyethylene Glycol/Electrolytes 17 gm 07/15/18 10:50 Miralax* PO DAILY PRN CONSTIPATION Prochlorperazine 10 mg 07/13/18 17:55 07/14/18 08:12 Compazine Tab* PO 10 mg Q8HR PRN Administration NAUSEA Senna 2 tab 07/13/18 17:45 Senokot Tab* PO BEDTIME PRN CONSTIPATION Vital Signs: Vital Signs Temp Pulse Resp BP Pulse Ox 98.2 F 90 18 111/71 97 07/15/18 16:10 07/15/18 16:10 07/15/18 17:03 07/15/18 16:10 07/15/18 16:10 Exam: GENERAL: affect slightly flat LUNGS: clear bilaterally HEART: reg rhythm ABDOMEN: Soft. Midline wound. GTube EXTREMITIES: decreased tone in LEs NEUROLOGIC: 2/5 strength in LEs. 4/5 LUE, 4+/5 RUE SKIN: midline incision open, open area on buttock Assessment/Plan: 1. Critical Care Myopathy: PT/OT 2. S/P Tila-en-Y Gastric Bypass, Peforation, Multiple Abcesses: Tolerating PO 3. Polymorphic VT Arrest, possibly from IV diflucan: Life Vest, Amiodarone, Lopressor 4. Malnutrition: Promote TF at 80 ml/hr through GTube, 6P-6A. H2O flush. PO 5. Pressure Ulcer: Local care, alginate dressing, barrier cream, nutritional support 6. Advanced Directives: Full code 7. DVT Prophylaxis: Lovenox 07/15/18 19:37
[2018-07-15] MEDS: Docusate CAP* 100 MG PO SCH (20:59)
[2018-07-16] MEDS: oxyCODONE TAB* 5 MG TAB PO PRN ×4 (00:50→21:57)
[2018-07-16] MEDS: Metoprolol Tartrate TAB* 25 MG PO SCH ×2 (08:06→21:20)
[2018-07-16] MEDS: Docusate CAP* 100 MG PO SCH ×2 (08:07→21:20)
[2018-07-16] MEDS: Ferrous Sulfate TAB* 325 MG PO SCH (08:07)
[2018-07-16] MEDS: Amiodarone TAB* 200 MG PO SCH (08:07)
[2018-07-16] MEDS: Prochlorperazine TAB* 10 MG PO PRN (12:15)
--- NOTE | 2018-07-16 12:32 | PMRUTEAM ---
PMRU: Team Meeting Current Status: Nursing: Current Status Skin Deviations [right of Incision umbilicus] Skin Deviations [Left Abdomen] Other Skin Deviations [Medial Incision Abdomen] Skin Deviations [Bilateral Other Plantar Foot] Skin Deviations [Right Pressure Ulcer Buttocks] Skin Deviations [Anterior Neck Previous Access Point ] Skin Deviation Description [ drsg in place right of umbilicus] Skin Deviation Description [ PEG tube patent Left Abdomen] Skin Deviation Description [ drsg in place Medial Abdomen] Skin Deviation Description [ thick dry flaky skin; lotion applied Bilateral Plantar Foot] Skin Deviation Description [ duoderm in place Right Buttocks] Skin Deviation Description [ previous trach site- healing Anterior Neck] Physical Therapy: Current Status Bed Mobility Assistance Mod Assist Transfer Moblility Assistance Min Assist,Mod Assist Transfer/Bed Mobility Rolling Walker Recommended Devices Ambulation Assistance Mod Assist Ambulation Assistive Devices Rolling Walker Number of Feet Patient 4 Ambulated Stairs Assistance Not Tested Occupational Therapy: Current Status Upper Body Dressing Max Asst Lower Body Dressing Total Assist,2 Person Assist Bathing Max Asst,2 Person Assist Toileting Max Asst,2 Person Assist Toilet Transfer Min Assist,2 Person Assist Eating Total Assist Rec Therapy: Current Status Summary of Assessment and Pt. was in bed - tired but open to a brief Clinical Impression conversation. Pt. was pleasant and cooperative. Pt. identified with interests and regular involvement in them prior to her surgery in April . Pt. states she did not have a lot of time for herself but was regularly involved in leisure for her family which she enjoyed. Provided pt. with word search puzzles which she was open to. Treatment Goals Pt. will engage in leisure activities while on the unit. Treatment Plan Provide RT services and encourage involvement. Social Work: Current Status Discharge Plan return home with home care svs and family support Potential for Family Training pt's family are involved and supportive Anticipated Discharge Home Destination Discharge With home care svs and family support Goals: Physical Therapy: Initial Goals Bed Mobility Assistance Independent Transfer Mobility Assistance Independent Transfer/Bed Mobility Rolling Walker Recommended Devices Ambulation Independent Ambulation Recommended Devices Rolling Walker Ambulation Distance 150 Stairs Assistance Independent Stair Recommended Devices Two Rails Number of Stairs 10 Occupational Therapy: Initial Goals Goals to be Completed in (Days 2-3 weeks ) Upper Body Bathing Routine Supervision/Set Up Lower Body Bathing Routine Supervision/Set Up Upper Body Dressing Routine Independent Lower Body Dressing Routine Modified Independent with Toilet Hygeine and Clothing Modified Independent with Management Routine Toilet Transfer Routine Modified Independent with Tub Transfer Routine Supervision/Set Up Functional Transfers for ADL Modified Independent with Grooming Routine Independent Feeding Routine Independent Light Housekeeping Tasks Minimal Contact Assist Nutrition: Goals Intervention Goals 1. Adequate PO intake (and enteral nutrition support) to maintain lean body mass and hydration while supporting appropriate wt loss s/p gastric bypass surgery - Intake will ultimately improve to meet 100% estimated calorie/protein needs w/o need for enteral nutrition support 2. High protein meals/snacks as able 3. Electrolytes will be maintained WNL w/ adequate intake 4. Intake will support wound healing w/o additional pressure related skin breakdown 5. Achieve bowel regularity w/o constipation or diarrhea Social Work: Goals Discharge Plan return home with home care svs and family support Potential for Family Training pt's family are involved and supportive Anticipated Discharge Home Destination Discharge With home care svs and family support Care Plan: Care Plan ADL's - Improve/Maintain Start: 07/13/18 23:45 Freq: DAILY Status: Active Target: Protocol: Activity Type Activity Date Activity User E-Sign Co-Sign Detail Recorded Client Recorded Date Recorded By Document 07/16/18 11:55 [id number] [id number] 07/16/18 11:55 [id number] 07/16/18 11:55 PMRU Outcome: ADL's/ADL Transfers Orders/Interventions Occupational Therapy Evaluation & Treatment Device Yes Patient to receive OT 5x/wk for 60-120 Therex min/day Self Care Management Group Therapy Neuromuscular ReEducation UE/LE ADL's with Assist Yes ADL Transfers with Assist Yes Toileting: Transfers,Clothing Management Yes ,Hygeine w/Assist Light Kitchen/Laundry w/Assist Yes Progression Toward Outcome/Goals Progressing Outcome/Goals Met Pt continues to tolerate tx session well. Limited by nausea and lightheadedness this date. Also, pt having increased back pain. Cardiovascular- Improve/Maintain Start: 07/13/18 23:45 Freq: QSHIFT Status: Active Target: Protocol: Activity Type Activity Date Activity User E-Sign Co-Sign Detail Recorded Client Recorded Date Recorded By Document 07/16/18 08:00 [id number] [id number] 07/16/18 11:05 [id number] 07/16/18 08:00 PMRU Outcome: Cardiovascular Vital Signs q Shift for 48hrs Then BID Yes Daily Weight Ordered No Current Cardiovascular Outcome/Goal Maintain/ Achieve Baseline HR, BP , Perfusion Improve HR Within Prescribed Parameters Free of Abnormal Cardiac Symptoms Improve/ Maintain Cardiac Output Progression Toward Outcome/Goal Progressing Communication-Improve/Maintain Start: 07/13/18 23:45 Freq: DAILY Status: Active Target: Protocol: Activity Type Activity Date Activity User E-Sign Co-Sign Detail Recorded Client Recorded Date Recorded By Document 07/15/18 23:00 [id number] [id number] 07/16/18 00:14 [id number] 07/15/18 23:00 PMRU Outcome: Communication/Cognitive Status Outcome/Goals Makes Needs Known Effectively Progression Toward Outcomes/Goals Progressing DVT Prophylaxis- Improve/Maintain Start: 07/13/18 23:45 Freq: QSHIFT Status: Active Target: Protocol: Activity Type Activity Date Activity User E-Sign Co-Sign Detail Recorded Client Recorded Date Recorded By Document 07/16/18 08:00 [id number] 07/16/18 11:05 [id number] 07/16/18 08:00 PMRU Outcome: DVT Prophylaxis Outcome/Goals Remains Free of DVT Complies with DVT Prophylaxis /Treatment TEDS Stockings on Every AM, Off at HS Progression Toward Outcome/Goals Progressing Discharge Planning - Improve/Maintain Start: 07/13/18 23:45 Freq: DAILY Status: Active Target: Protocol: Activity Type Activity Date Activity User E-Sign Co-Sign Detail Recorded Client Recorded Date Recorded By Document 07/15/18 23:00 [id number] [email or web address] 07/16/18 00:14 [id number] 07/15/18 23:00 PMRU Outcome: Discharge Planning Update Patient Family No Outcome/Goals Demonstrates Understanding of Discharge Plan Education-Improve/Maintain Start: 07/13/18 23:45 Freq: QSHIFT Status: Active Target: Protocol: Activity Type Activity Date Activity User E-Sign Co-Sign Detail Recorded Client Recorded Date Recorded By Document 07/16/18 08:00 [id number] [email or web address] 07/16/18 11:05 [id number] 07/16/18 08:00 PMRU Outcome: Education Outcome/Goals Encourage Questions Progression Toward Outcome/Goals Progressing Medication Administration Start: 07/13/18 23:45 Freq: QSHIFT Status: Active Target: Protocol: Activity Type Activity Date Activity User E-Sign Co-Sign Detail Recorded Client Recorded Date Recorded By Document 07/16/18 08:00 [id number] 07/16/18 11:05 [id number] 07/16/18 08:00 PMRU Outcome: Medication Administration Assess Patient Knowledge/Teach Med Yes Education for all Meds Outcome/Goals Patient Independent with Medication Administration at Home Demonstrates Understanding Progression Towards Outcome/Goals Progressing Is Patient Going Home on Lovenox? No Mobility- Improve/Maintain Start: 07/13/18 23:45 Freq: DAILY Status: Active Target: Protocol: Activity Type Activity Date Activity User E-Sign Co-Sign Detail Recorded Client Recorded Date Recorded By Document 07/14/18 18:00 [id number] [id number] 07/16/18 10:16 [id number] 07/14/18 18:00 PMRU Outcome: Mobility Physical Therapy Evaluation and Yes Treatment Activity OOB with Assistance Yes WBAT Yes Device Yes Assistance Yes Patient to be seen 5x/wk for 60-120 min/ Therex day for: Mobility Training Gait Training W/C Mobility Balance Other Outcome/Goals Maintain/ Achieve Baseline Mobility Status Improve Mobility Status Demonstrates Proper Use of Assistive Devices Free from Complications of Immobility Bed Mobility Yes: independent Transfers Yes: independent with rolling walker Gait x ft Yes: independent with rolling alker to 150' Up/Down Stairs Yes: independent up/ down 1 flight with 2 rails Neurological- Improve/Maintain Start: 07/13/18 23:45 Freq: QSHIFT Status: Active Target: Protocol: Activity Type Activity Date Activity User E-Sign Co-Sign Detail Recorded Client Recorded Date Recorded By Document 07/16/18 08:00 [id number] 07/16/18 11:05 [id number] 07/16/18 08:00 PMRU Outcome: Neurological Weakness/Aphasia Weakness Outcome/Goals Maintain/ Achieve Baseline Neurological Status Improve Neurological Status Maintain/ Improve Strength/ROM Progression Toward Outcome/Goals Progressing Nutrition/Swallowing- Improve/Maintain Start: 07/13/18 23:45 Freq: QSHIFT Status: Active Target: Protocol: Activity Type Activity Date Activity User E-Sign Co-Sign Detail Recorded Client Recorded Date Recorded By Document 07/16/18 00:15 [id number] 07/16/18 00:16 [id number] 07/16/18 00:15 PMRU Outcome: Nutrition/Swallowing Outcome/Goals Demonstrates Adequate Hydration/ Prevents Dehydration Maintain/ Improve Nutritional Status Progression Toward Outcome/Goals Progressing Pain/Comfort- Improve/Maintain Start: 07/13/18 23:45 Freq: QSHIFT Status: Active Target: Protocol: Activity Type Activity Date Activity User E-Sign Co-Sign Detail Recorded Client Recorded Date Recorded By Document 07/16/18 08:00 [id number] [email or web address] 07/16/18 11:05 [id number] 07/16/18 08:00 PMRU Outcome: Pain/Comfort Outcome/Goals Demonstrates Knowledge and Use of Available Comfort Measures Achieves Acceptable Comfort/Pain Level as Determined by Patient/Condit Maintain Comfort Level Allowing Patient to Fully Participate in Rehab Progression Toward Outcome/Goals Progressing Respiratory - Improve/Maintain Start: 07/13/18 23:45 Freq: QSHIFT Status: Active Target: Protocol: Activity Type Activity Date Activity User E-Sign Co-Sign Detail Recorded Client Recorded Date Recorded By Document 07/16/18 08:00 [id number] [email or web address] 07/16/18 11:05 [id number] 07/16/18 08:00 PMRU Outcome: Respiratory Does Patient Have a Trach No Outcome/Goals Maintain/ Improve Activity Tolerance Prevent Pneumonia/ Atelectasis Remain Aspiration Free Progression Toward Outcome/Goals Progressing Safety- Improve/Maintain Start: 07/13/18 23:45 Freq: QSHIFT Status: Active Target: Protocol: Activity Type Activity Date Activity User E-Sign Co-Sign Detail Recorded Client Recorded Date Recorded By Document 07/16/18 08:00 [id number] 07/16/18 11:05 [id number] 07/16/18 08:00 PMRU Outcome: Safety Outcome/Goals Remain Free of Injury or Harm Cooperates with Safety Measures for Least Restrictive Environment Prevent Falls/ Injury Progression Toward Outcome/Goals Progressing Skin- Improve/Maintain Start: 07/13/18 23:45 Freq: QSHIFT Status: Active Target: Protocol: Activity Type Activity Date Activity User E-Sign Co-Sign Detail Recorded Client Recorded Date Recorded By Document 07/16/18 08:00 [id number] [email or web address] 07/16/18 11:05 [id number] 07/16/18 08:00 PMRU Outcome: Skin Skin Risk Level Medium Skin Orders Dressing Change Multipodus Boot Heels Off Bed Turn/Position q2hr While in Bed Outcome/Goals Maintain/ Improve Skin Intergrity Maintain/ Improve Wound Status Surgical Incisions Healing Progression Toward Outcome/Goals Progressing Medicine Note: Length of Stay: 4 weeks Anticipated Discharge Destination: Home Tentative Discharge Date: 08/13/18 Discharged to: home
[2018-07-16] MEDS: Methocarbamol TAB* 500 MG PO PRN ×2 (13:06→18:32)
--- NOTE | 2018-07-16 17:41 | PN ---
Progress Note Date of Service: 07/16/18 Note: CARY DUMONT was visited. Therapy notes read and reviewed. Patient was discussed in interdisicplinary team rounds. She has made good gains. Was able to walk across parallel bars. Will order calorie counts to see if we can cut back on TF Current Medications: Active Medications Generic Name Dose Route Start Last Admin Trade Name Freq PRN Reason Stop Dose Admin Acetaminophen 650 mg 07/13/18 17:45 07/13/18 20:20 Tylenol Tab* PO 650 mg Q6H PRN Administration FEVER/PAIN Amiodarone HCl 100 mg 07/14/18 09:00 07/16/18 08:07 Cordarone Tab* PO 100 mg DAILY MARCELA Administration Bisacodyl 10 mg 07/15/18 11:26 07/15/18 17:46 Dulcolax Supp* [place] 10 mg DAILY PRN Administration CONSTIPATION Clonidine HCl 0.1 mg 07/18/18 09:00 [id number] 0.1 Mg Patch* TRANSDERM Q7D MARCELA Docusate Sodium 100 mg 07/15/18 21:00 07/16/18 08:07 Colace Cap* PO 100 mg BID MARCELA Administration Enoxaparin Sodium 40 mg 07/13/18 18:00 07/15/18 17:53 Lovenox(*) SUBCUT 40 mg Q24H MARCELA Administration Ferrous Sulfate 325 mg 07/14/18 09:00 07/16/18 08:07 Ferrous Sulfate Tab* PO 325 mg DAILY MARCELA Administration Methocarbamol 750 mg 07/16/18 12:46 07/16/18 13:06 Robaxin Tab* PO 750 mg TID PRN Administration SPASMS Metoprolol Tartrate 25 mg 07/13/18 21:00 07/16/18 08:06 Lopressor Tab* PO 25 mg BID MARCELA Administration Oxycodone HCl 5 mg 07/13/18 17:53 07/16/18 15:53 Roxycodone Tab* PO 5 mg Q6H PRN Administration PAIN - MODERATE TO SEVERE Polyethylene Glycol/Electrolytes 17 gm 07/15/18 10:50 Miralax* PO DAILY PRN CONSTIPATION Prochlorperazine 10 mg 07/13/18 17:55 07/16/18 12:15 Compazine Tab* PO 10 mg Q8HR PRN Administration NAUSEA Senna 2 tab 07/16/18 21:00 Senokot Tab* PO BEDTIME MARCELA Vital Signs: Vital Signs Temp Pulse Resp BP Pulse Ox 99.0 F 89 20 123/75 97 07/16/18 16:28 07/16/18 16:25 07/16/18 16:25 07/16/18 16:25 07/16/18 16:25 Exam: GENERAL: affect slightly flat LUNGS: clear bilaterally HEART: reg rhythm ABDOMEN: Soft. Midline wound. GTube EXTREMITIES: decreased tone in LEs NEUROLOGIC: 2/5 strength in LEs. 4/5 LUE, 4+/5 RUE SKIN: midline incision open, open area on buttock Assessment/Plan: 1. Critical Care Myopathy: PT/OT 2. S/P Tila-en-Y Gastric Bypass, Peforation, Multiple Abcesses: Tolerating PO 3. Polymorphic VT Arrest, possibly from IV diflucan: Life Vest, Amiodarone, Lopressor 4. Malnutrition: Promote TF at 80 ml/hr through GTube, 6P-6A. May cut back. H2O flush. PO 5. Pressure Ulcer: Local care, alginate dressing, barrier cream, nutritional support 6. Advanced Directives: Full code 7. DVT Prophylaxis: Lovenox 07/16/18 17:41
[2018-07-16] MEDS: Enoxaparin(*) 40 MG/0.4 ML SYR SUBCUT SCH (17:58)
[2018-07-16] MEDS: Senna TAB PO SCH (21:21)
[2018-07-17] MEDS: Methocarbamol TAB* 500 MG PO PRN ×2 (01:48→11:01)
[2018-07-17] MEDS: oxyCODONE TAB* 5 MG TAB PO PRN ×2 (04:08→20:42)
[2018-07-17] MEDS: Prochlorperazine TAB* 10 MG PO PRN (09:20)
[2018-07-17] MEDS: Ferrous Sulfate TAB* 325 MG PO SCH (10:02)
[2018-07-17] MEDS: Metoprolol Tartrate TAB* 25 MG PO SCH ×2 (10:02→20:42)
[2018-07-17] MEDS: Amiodarone TAB* 200 MG PO SCH (10:04)
[2018-07-17] MEDS: Docusate CAP* 100 MG PO SCH ×2 (10:05→20:43)
--- NOTE | 2018-07-17 12:03 | PN ---
Progress Note Date of Service: 07/17/18 Note: CARY DUMONT was visited. Therapy notes read and reviewed. She has nausea which she says began to get worse when they advanced her diet from clear liquids. She uses compazine with some relief. Given her history of V Tach, Zofran may not be a great alternative. Current Medications: Active Medications Generic Name Dose Route Start Last Admin Trade Name Freq PRN Reason Stop Dose Admin Acetaminophen 650 mg 07/13/18 17:45 07/13/18 20:20 Tylenol Tab* PO 650 mg Q6H PRN Administration FEVER/PAIN Amiodarone HCl 100 mg 07/14/18 09:00 07/17/18 10:04 Cordarone Tab* PO 100 mg DAILY MARCELA Administration Bisacodyl 10 mg 07/15/18 11:26 07/15/18 17:46 Dulcolax Supp* [place] 10 mg DAILY PRN Administration CONSTIPATION Clonidine HCl 0.1 mg 07/18/18 09:00 [id number] 0.1 Mg Patch* TRANSDERM Q7D MARCELA Docusate Sodium 100 mg 07/15/18 21:00 07/17/18 10:05 Colace Cap* PO Not Given BID MARCELA Enoxaparin Sodium 40 mg 07/13/18 18:00 07/16/18 17:58 Lovenox(*) SUBCUT 40 mg Q24H MARCELA Administration Ferrous Sulfate 325 mg 07/14/18 09:00 07/17/18 10:02 Ferrous Sulfate Tab* PO 325 mg DAILY MARCELA Administration Methocarbamol 750 mg 07/16/18 12:46 07/17/18 11:01 Robaxin Tab* PO 750 mg TID PRN Administration SPASMS Metoprolol Tartrate 25 mg 07/13/18 21:00 07/17/18 10:02 Lopressor Tab* PO 25 mg BID MARCELA Administration Oxycodone HCl 5 mg 07/13/18 17:53 07/17/18 04:08 Roxycodone Tab* PO 5 mg Q6H PRN Administration PAIN - MODERATE TO SEVERE Polyethylene Glycol/Electrolytes 17 gm 07/15/18 10:50 Miralax* PO DAILY PRN CONSTIPATION Prochlorperazine 10 mg 07/13/18 17:55 07/17/18 09:20 Compazine Tab* PO 10 mg Q8HR PRN Administration NAUSEA Senna 2 tab 07/16/18 21:00 07/16/18 21:21 Senokot Tab* PO 2 tab BEDTIME MARCELA Administration Vital Signs: Vital Signs Temp Pulse Resp BP Pulse Ox 98.0 F 92 21 112/66 95 07/17/18 06:32 07/17/18 06:32 07/17/18 11:01 07/17/18 06:32 07/17/18 06:32 Exam: GENERAL: affect slightly flat LUNGS: clear bilaterally HEART: reg rhythm ABDOMEN: Soft. Midline wound. GTube EXTREMITIES: decreased tone in LEs NEUROLOGIC: 2/5 strength in LEs. 4/5 LUE, 4+/5 RUE SKIN: midline incision open, open area on buttock Assessment/Plan: 1. Critical Care Myopathy: PT/OT 2. S/P Itla-en-Y Gastric Bypass, Peforation, Multiple Abcesses: Tolerating PO 3. Polymorphic VT Arrest, possibly from IV diflucan: Life Vest, Amiodarone, Lopressor 4. Malnutrition: Promote TF at 80 ml/hr through GTube. Will try cutting back to 6P-5A. H2O flush. PO. Calorie counts 5. Pressure Ulcer: Local care, alginate dressing, barrier cream, nutritional support 6. Advanced Directives: Full code 7. DVT Prophylaxis: Lovenox 07/17/18 12:04
[2018-07-17] MEDS: Enoxaparin(*) 40 MG/0.4 ML SYR SUBCUT SCH (18:51)
[2018-07-17] MEDS: Senna TAB PO SCH (20:43)
[2018-07-18] MEDS: Amiodarone TAB* 200 MG PO SCH (09:07)
[2018-07-18] MEDS: Metoprolol Tartrate TAB* 25 MG PO SCH ×2 (09:07→20:57)
[2018-07-18] MEDS: Ferrous Sulfate TAB* 325 MG PO SCH (09:08)
[2018-07-18] MEDS: Docusate CAP* 100 MG PO SCH ×2 (09:09→20:58)
[2018-07-18] MEDS: cloNIDine 0.1 MG PATCH* 0.1 MG/24 HR 7 DAY PATCH TRANSDERM SCH (09:09)
--- NOTE | 2018-07-18 15:05 | PN ---
Progress Note Date of Service: 07/18/18 Note: CARY DUMONT was visited. Nursing notes read and reviewed. She had a bowel movement. She does not feel hungry but is trying to eat. Will lower TF to 10 hours a day Current Medications: Active Medications Generic Name Dose Route Start Last Admin Trade Name Freq PRN Reason Stop Dose Admin Acetaminophen 650 mg 07/13/18 17:45 07/13/18 20:20 Tylenol Tab* PO 650 mg Q6H PRN Administration FEVER/PAIN Amiodarone HCl 100 mg 07/14/18 09:00 07/18/18 09:07 Cordarone Tab* PO 100 mg DAILY MARCELA Administration Bisacodyl 10 mg 07/15/18 11:26 07/15/18 17:46 Dulcolax Supp* [place] 10 mg DAILY PRN Administration CONSTIPATION Clonidine HCl 0.1 mg 07/18/18 09:00 07/18/18 09:09 [id number]-Mgl-3 0.1 Mg Patch* TRANSDERM 0.1 mg Q7D MARCELA Administration Docusate Sodium 100 mg 07/15/18 21:00 07/18/18 09:09 Colace Cap* PO 100 mg BID MARCELA Administration Enoxaparin Sodium 40 mg 07/13/18 18:00 07/17/18 18:51 Lovenox(*) SUBCUT 40 mg Q24H MARCELA Administration Ferrous Sulfate 325 mg 07/14/18 09:00 07/18/18 09:08 Ferrous Sulfate Tab* PO 325 mg DAILY MARCELA Administration Methocarbamol 750 mg 07/16/18 12:46 07/17/18 11:01 Robaxin Tab* PO 750 mg TID PRN Administration SPASMS Metoprolol Tartrate 25 mg 07/13/18 21:00 07/18/18 09:07 Lopressor Tab* PO 25 mg BID MARCELA Administration Oxycodone HCl 5 mg 07/13/18 17:53 07/17/18 20:42 Roxycodone Tab* PO 5 mg Q6H PRN Administration PAIN - MODERATE TO SEVERE Polyethylene Glycol/Electrolytes 17 gm 07/15/18 10:50 Miralax* PO DAILY PRN CONSTIPATION Prochlorperazine 10 mg 07/13/18 17:55 07/17/18 09:20 Compazine Tab* PO 10 mg Q8HR PRN Administration NAUSEA Senna 2 tab 07/16/18 21:00 07/17/18 20:43 Senokot Tab* PO 2 tab BEDTIME MARCELA Administration Vital Signs: Vital Signs Temp Pulse Resp BP Pulse Ox 97.9 F 89 16 122/70 97 07/18/18 06:40 07/18/18 06:40 07/18/18 06:40 07/18/18 06:40 07/18/18 06:40 Exam: GENERAL: affect slightly flat LUNGS: clear bilaterally HEART: reg rhythm ABDOMEN: Soft. Midline wound. GTube EXTREMITIES: decreased tone in LEs NEUROLOGIC: 4/5 strength in LEs. 4/5 LUE, 4+/5 RUE SKIN: midline incision open, open area on buttock Assessment/Plan: 1. Critical Care Myopathy: PT/OT 2. S/P Tila-en-Y Gastric Bypass, Peforation, Multiple Abcesses: Tolerating PO 3. Polymorphic VT Arrest, possibly from IV diflucan: Life Vest, Amiodarone, Lopressor 4. Malnutrition: Promote TF at 80 ml/hr through GTube. Will try cutting back to 6P-4A. H2O flush. PO. Calorie counts 5. Pressure Ulcer: Local care, alginate dressing, barrier cream, nutritional support 6. Advanced Directives: Full code 7. DVT Prophylaxis: Lovenox 07/18/18 15:05
[2018-07-18] MEDS: Enoxaparin(*) 40 MG/0.4 ML SYR SUBCUT SCH (17:39)
[2018-07-18] MEDS: Senna TAB PO SCH (20:58)
[2018-07-19] MEDS: Docusate CAP* 100 MG PO SCH ×2 (11:11→20:26)
[2018-07-19] MEDS: Ferrous Sulfate TAB* 325 MG PO SCH (11:11)
[2018-07-19] MEDS: Amiodarone TAB* 200 MG PO SCH (11:11)
[2018-07-19] MEDS: Metoprolol Tartrate TAB* 25 MG PO SCH ×2 (11:11→21:16)
[2018-07-19] MEDS: Enoxaparin(*) 40 MG/0.4 ML SYR SUBCUT SCH (17:56)
--- NOTE | 2018-07-19 18:05 | PN ---
Progress Note Date of Service: 07/19/18 Note: CARY DUMONT was visited. Therapy notes read and reviewed. She was able to walk a little further today. Able to transfer with assistance of 1. Had BM, less nauseated today Current Medications: Active Medications Generic Name Dose Route Start Last Admin Trade Name Freq PRN Reason Stop Dose Admin Acetaminophen 650 mg 07/13/18 17:45 07/13/18 20:20 Tylenol Tab* PO 650 mg Q6H PRN Administration FEVER/PAIN Amiodarone HCl 100 mg 07/14/18 09:00 07/19/18 11:11 Cordarone Tab* PO 100 mg DAILY MARCELA Administration Bisacodyl 10 mg 07/15/18 11:26 07/15/18 17:46 Dulcolax Supp* [place] 10 mg DAILY PRN Administration CONSTIPATION Clonidine HCl 0.1 mg 07/18/18 09:00 07/18/18 09:09 Pjzkauiz-Lbl-2 0.1 Mg Patch* TRANSDERM 0.1 mg Q7D MARCELA Administration Docusate Sodium 100 mg 07/15/18 21:00 07/19/18 11:11 Colace Cap* PO 100 mg BID MARCELA Administration Enoxaparin Sodium 40 mg 07/13/18 18:00 07/19/18 17:56 Lovenox(*) SUBCUT 40 mg Q24H MARCELA Administration Ferrous Sulfate 325 mg 07/14/18 09:00 07/19/18 11:11 Ferrous Sulfate Tab* PO 325 mg DAILY MARCELA Administration Methocarbamol 750 mg 07/16/18 12:46 07/17/18 11:01 Robaxin Tab* PO 750 mg TID PRN Administration SPASMS Metoprolol Tartrate 25 mg 07/13/18 21:00 07/19/18 11:11 Lopressor Tab* PO 25 mg BID MARCELA Administration Oxycodone HCl 5 mg 07/13/18 17:53 07/17/18 20:42 Roxycodone Tab* PO 5 mg Q6H PRN Administration PAIN - MODERATE TO SEVERE Polyethylene Glycol/Electrolytes 17 gm 07/15/18 10:50 Miralax* PO DAILY PRN CONSTIPATION Prochlorperazine 10 mg 07/13/18 17:55 07/17/18 09:20 Compazine Tab* PO 10 mg Q8HR PRN Administration NAUSEA Senna 2 tab 07/16/18 21:00 07/18/18 20:58 Senokot Tab* PO 2 tab BEDTIME MARCELA Administration Vital Signs: Vital Signs Temp Pulse Resp BP Pulse Ox 97.5 F 100 20 138/88 100 07/19/18 05:57 07/19/18 11:10 07/19/18 16:07 07/19/18 08:30 07/19/18 08:30 Exam: GENERAL: affect slightly flat LUNGS: clear bilaterally HEART: reg rhythm ABDOMEN: Soft. Midline wound. GTube EXTREMITIES: decreased tone in LEs NEUROLOGIC: 4/5 strength in LEs. 4/5 LUE, 4+/5 RUE SKIN: midline incision open, open area on buttock Assessment/Plan: 1. Critical Care Myopathy: PT/OT 2. S/P Tila-en-Y Gastric Bypass, Peforation, Multiple Abcesses: Tolerating PO 3. Polymorphic VT Arrest, possibly from IV diflucan: Life Vest, Amiodarone, Lopressor 4. Malnutrition: Promote TF at 80 ml/hr through GTube. Have cut back to 6P-4A. H2O flush. PO. Calorie counts 5. Pressure Ulcer: Local care, alginate dressing, barrier cream, nutritional support 6. Advanced Directives: Full code 7. DVT Prophylaxis: Lovenox 07/19/18 18:06
[2018-07-19] MEDS: oxyCODONE TAB* 5 MG TAB PO PRN (19:42)
[2018-07-19] MEDS: Senna TAB PO SCH (20:26)
[2018-07-20] MEDS: Prochlorperazine TAB* 10 MG PO PRN (07:47)
[2018-07-20] MEDS: Ferrous Sulfate TAB* 325 MG PO SCH (10:25)
[2018-07-20] MEDS: Amiodarone TAB* 200 MG PO SCH (10:25)
[2018-07-20] MEDS: Metoprolol Tartrate TAB* 25 MG PO SCH ×2 (10:25→21:21)
[2018-07-20] MEDS: Docusate CAP* 100 MG PO SCH ×2 (10:33→21:20)
--- NOTE | 2018-07-20 12:44 | PMRUTEAM ---
PMRU: Team Meeting Current Status: Nursing: Current Status Skin Deviations [upper gluteal Skin Tear cleft] Skin Deviations [right of Incision umbilicus] Skin Deviations [Left Abdomen] Incision Skin Deviations [Medial Incision Abdomen] Skin Deviations [Bilateral Other Plantar Foot] Skin Deviations [Right Pressure Ulcer Buttocks] Skin Deviations [Anterior Neck Other ] Skin Deviation Description [ heavy cream applied upper gluteal cleft] Skin Deviation Description [ drsg in place right of umbilicus] Skin Deviation Description [ G-Tube in place Left Abdomen] Skin Deviation Description [ drsg in place Medial Abdomen] Skin Deviation Description [ thick, dry, scales; lotion applied Bilateral Plantar Foot] Skin Deviation Description [ unchanged Right Buttocks] Skin Deviation Description [ site of previous tracheostomy; healing Anterior Neck] Physical Therapy: Current Status Bed Mobility Assistance Independent Transfer Moblility Assistance Independent Transfer/Bed Mobility Rolling Walker Recommended Devices Ambulation Assistance Independent Ambulation Assistive Devices Rolling Walker Number of Feet Patient 25 Ambulated Stairs Assistance Not Tested Objective Comments PT performed pressure assessment of ROHO cushion with pt sitting in recliner chair, adequate air in cushion at this time Occupational Therapy: Current Status Upper Body Dressing Min Assist Lower Body Dressing Mod Assist,Max Asst Bathing Mod Assist,Max Asst Toileting Total Assist Toilet Transfer Contact Guard Assist Shower Transfer Contact Guard Assist Eating Total Assist Rec Therapy: Current Status Summary of Assessment and RT assessment complete and pt. is aware of RT Clinical Impression services. Pt. has been cooperative and engaged during visits. Provided pt. with word search puzzles. Treatment Goals Pt. will engage in leisure activities while on the unit. Treatment Plan Provide RT services and encourage involvement. Social Work: Current Status Discharge Plan return home with home care svs and family support Potential for Family Training pt's family is involved and supportive Anticipated Discharge Home Destination Discharge With home care svs and family support Nutrition: Current Status Monitoring Giancarlo count 07/19: ~450 kcal, 12 g prot, ? fluid ( from only bread, cinnamon roll, milk). Anticipate intake is a little higher than recorded, as she is receiving food from home which is not being recorded on calorie count. Will attempt to clarify, along w/fluid intake. Goals: Physical Therapy: Initial Goals Bed Mobility Assistance Independent Transfer Mobility Assistance Independent Transfer/Bed Mobility Rolling Walker Recommended Devices Ambulation Independent Ambulation Recommended Devices Rolling Walker Ambulation Distance 150 Stairs Assistance Independent Stair Recommended Devices Two Rails Number of Stairs 10 Occupational Therapy: Initial Goals Goals to be Completed in (Days 3-4 weeks ) Upper Body Bathing Routine Independent Lower Body Bathing Routine Supervision/Set Up Upper Body Dressing Routine Independent Lower Body Dressing Routine Modified Independent with Toilet Hygeine and Clothing Modified Independent with Management Routine Toilet Transfer Routine Modified Independent with Tub Transfer Routine Supervision/Set Up Functional Transfers for ADL Modified Independent with Grooming Routine Independent Feeding Routine Independent Light Housekeeping Tasks Minimal Contact Assist Nutrition: Goals Intervention Goals 1. Adequate PO intake (and enteral nutrition support) to maintain lean body mass and hydration while supporting appropriate wt loss s/p gastric bypass surgery - Intake will ultimately improve to meet 100% estimated calorie/protein needs w/o need for enteral nutrition support 2. High protein meals/snacks as able 3. Electrolytes will be maintained WNL w/ adequate intake 4. Intake will support wound healing w/o additional pressure related skin breakdown 5. Achieve bowel regularity w/o constipation or diarrhea Social Work: Goals Discharge Plan return home with home care svs and family support Potential for Family Training pt's family is involved and supportive Anticipated Discharge Home Destination Discharge With home care svs and family support Care Plan: Care Plan ADL's - Improve/Maintain Start: 07/13/18 23:45 Freq: DAILY Status: Active Target: Protocol: Activity Type Activity Date Activity User E-Sign Co-Sign Detail Recorded Client Recorded Date Recorded By Document 07/19/18 12:02 [id number] [id number] 07/19/18 12:02 [id number] 07/19/18 12:02 PMRU Outcome: ADL's/ADL Transfers Orders/Interventions Occupational Therapy Evaluation & Treatment Device Yes Patient to receive OT 5x/wk for 60-120 Therex min/day Self Care Management Group Therapy Neuromuscular ReEducation UE/LE ADL's with Assist Yes ADL Transfers with Assist Yes Toileting: Transfers,Clothing Management Yes ,Hygeine w/Assist Light Kitchen/Laundry w/Assist Yes Progression Toward Outcome/Goals Progressing Outcome/Goals Met Pt tolerates full therapy well this date but difficult time making functional progress with ADL routine. Pt continues to c/o dizziness/ lightheadedness and nausea. Pts HR increased this date fluccuating between 124-127 Cardiovascular- Improve/Maintain Start: 07/13/18 23:45 Freq: QSHIFT Status: Active Target: Protocol: Activity Type Activity Date Activity User E-Sign Co-Sign Detail Recorded Client Recorded Date Recorded By Document 07/19/18 23:45 [id number] [id number] 07/19/18 23:45 [id number] 07/19/18 23:45 PMRU Outcome: Cardiovascular Vital Signs q Shift for 48hrs Then BID Yes Daily Weight Ordered No Current Cardiovascular Outcome/Goal Maintain/ Achieve Baseline HR, BP , Perfusion Improve HR Within Prescribed Parameters Free of Abnormal Cardiac Symptoms Improve/ Maintain Cardiac Output Progression Toward Outcome/Goal Progressing Communication-Improve/Maintain Start: 07/13/18 23:45 Freq: DAILY Status: Active Target: Protocol: Activity Type Activity Date Activity User E-Sign Co-Sign Detail Recorded Client Recorded Date Recorded By Document 07/19/18 23:00 [id number] [email or web address] 07/19/18 23:46 [id number] 07/19/18 23:00 PMRU Outcome: Communication/Cognitive Status Outcome/Goals Makes Needs Known Effectively Progression Toward Outcomes/Goals Progressing DVT Prophylaxis- Improve/Maintain Start: 07/13/18 23:45 Freq: QSHIFT Status: Active Target: Protocol: Activity Type Activity Date Activity User E-Sign Co-Sign Detail Recorded Client Recorded Date Recorded By Document 07/19/18 23:45 [id number] [id number] 07/19/18 23:45 [id number] 07/19/18 23:45 PMRU Outcome: DVT Prophylaxis Outcome/Goals Remains Free of DVT Complies with DVT Prophylaxis /Treatment TEDS Stockings on Every AM, Off at HS Progression Toward Outcome/Goals Progressing Discharge Planning - Improve/Maintain Start: 07/13/18 23:45 Freq: DAILY Status: Active Target: Protocol: Activity Type Activity Date Activity User E-Sign Co-Sign Detail Recorded Client Recorded Date Recorded By Document 07/19/18 23:00 [id number] [email or web address] 07/19/18 23:46 [id number] 07/19/18 23:00 PMRU Outcome: Discharge Planning Update Patient Family No Outcome/Goals Demonstrates Understanding of Discharge Plan Education-Improve/Maintain Start: 07/13/18 23:45 Freq: QSHIFT Status: Active Target: Protocol: Activity Type Activity Date Activity User E-Sign Co-Sign Detail Recorded Client Recorded Date Recorded By Document 07/19/18 23:45 [id number] [id number] 07/19/18 23:45 [id number] 07/19/18 23:45 PMRU Outcome: Education Outcome/Goals Encourage Questions Progression Toward Outcome/Goals Progressing Medication Administration Start: 07/13/18 23:45 Freq: QSHIFT Status: Active Target: Protocol: Activity Type Activity Date Activity User E-Sign Co-Sign Detail Recorded Client Recorded Date Recorded By Document 07/19/18 23:45 [id number] [email or web address] 07/19/18 23:45 [id number] 07/19/18 23:45 PMRU Outcome: Medication Administration Assess Patient Knowledge/Teach Med Yes Education for all Meds Outcome/Goals Patient Independent with Medication Administration at Home Demonstrates Understanding Progression Towards Outcome/Goals Progressing Is Patient Going Home on Lovenox? No Mobility- Improve/Maintain Start: 07/13/18 23:45 Freq: DAILY Status: Active Target: Protocol: Activity Type Activity Date Activity User E-Sign Co-Sign Detail Recorded Client Recorded Date Recorded By Document 07/14/18 18:00 [id number] [id number] 07/16/18 10:16 [id number] 07/14/18 18:00 PMRU Outcome: Mobility Physical Therapy Evaluation and Yes Treatment Activity OOB with Assistance Yes WBAT Yes Device Yes Assistance Yes Patient to be seen 5x/wk for 60-120 min/ Therex day for: Mobility Training Gait Training W/C Mobility Balance Other Outcome/Goals Maintain/ Achieve Baseline Mobility Status Improve Mobility Status Demonstrates Proper Use of Assistive Devices Free from Complications of Immobility Bed Mobility Yes: independent Transfers Yes: independent with rolling walker Gait x ft Yes: independent with rolling alker to 150' Up/Down Stairs Yes: independent up/ down 1 flight with 2 rails Neurological- Improve/Maintain Start: 07/13/18 23:45 Freq: QSHIFT Status: Active Target: Protocol: Activity Type Activity Date Activity User E-Sign Co-Sign Detail Recorded Client Recorded Date Recorded By Document 07/19/18 23:45 [id number] [id number] 07/19/18 23:45 [id number] 07/19/18 23:45 PMRU Outcome: Neurological Weakness/Aphasia Weakness Outcome/Goals Maintain/ Achieve Baseline Neurological Status Improve Neurological Status Maintain/ Improve Strength/ROM Progression Toward Outcome/Goals Progressing Nutrition/Swallowing- Improve/Maintain Start: 07/13/18 23:45 Freq: QSHIFT Status: Active Target: Protocol: Activity Type Activity Date Activity User E-Sign Co-Sign Detail Recorded Client Recorded Date Recorded By Document 07/19/18 23:45 [id number] [id number] 07/19/18 23:45 [id number] 07/19/18 23:45 PMRU Outcome: Nutrition/Swallowing Outcome/Goals Maintain/ Improve Nutritional Status Progression Toward Outcome/Goals Progressing Pain/Comfort- Improve/Maintain Start: 07/13/18 23:45 Freq: QSHIFT Status: Active Target: Protocol: Activity Type Activity Date Activity User E-Sign Co-Sign Detail Recorded Client Recorded Date Recorded By Document 07/19/18 23:45 [id number] [email or web address] 07/19/18 23:45 [id number] 07/19/18 23:45 PMRU Outcome: Pain/Comfort Outcome/Goals Demonstrates Knowledge and Use of Available Comfort Measures Achieves Acceptable Comfort/Pain Level as Determined by Patient/Condit Maintain Comfort Level Allowing Patient to Fully Participate in Rehab Progression Toward Outcome/Goals Progressing Respiratory - Improve/Maintain Start: 07/13/18 23:45 Freq: QSHIFT Status: Active Target: Protocol: Activity Type Activity Date Activity User E-Sign Co-Sign Detail Recorded Client Recorded Date Recorded By Document 07/19/18 23:45 [id number] [id number] 07/19/18 23:45 [id number] 07/19/18 23:45 PMRU Outcome: Respiratory Does Patient Have a Trach No Outcome/Goals Maintain/ Improve Activity Tolerance Prevent Pneumonia/ Atelectasis Remain Aspiration Free Progression Toward Outcome/Goals Progressing Safety- Improve/Maintain Start: 07/13/18 23:45 Freq: QSHIFT Status: Active Target: Protocol: Activity Type Activity Date Activity User E-Sign Co-Sign Detail Recorded Client Recorded Date Recorded By Document 07/19/18 23:45 [id number] [id number] 07/19/18 23:45 [id number] 07/19/18 23:45 PMRU Outcome: Safety Outcome/Goals Remain Free of Injury or Harm Cooperates with Safety Measures for Least Restrictive Environment Prevent Falls/ Injury Progression Toward Outcome/Goals Progressing Skin- Improve/Maintain Start: 07/13/18 23:45 Freq: QSHIFT Status: Active Target: Protocol: Activity Type Activity Date Activity User E-Sign Co-Sign Detail Recorded Client Recorded Date Recorded By Document 07/19/18 23:45 [id number] [email or web address] 07/19/18 23:45 [id number] 07/19/18 23:45 PMRU Outcome: Skin Skin Risk Level High Skin Orders Dressing Change Multipodus Boot Heels Off Bed Turn/Position q2hr While in Bed Outcome/Goals Maintain/ Improve Skin Intergrity Maintain/ Improve Wound Status Surgical Incisions Healing Progression Toward Outcome/Goals Progressing Medicine Note: Length of Stay: 3 1/2 weeks Anticipated Discharge Destination: Home Tentative Discharge Date: 08/13/18 Discharged to: Home
--- NOTE | 2018-07-20 16:45 | PN ---
Progress Note Date of Service: 07/20/18 Note: CARY DUMONT was visited. Therapy notes read and reviewed. She was discussed in interdisciplinary team rounds. Persistent nausea. Will try routine compazine in the morning early Current Medications: Active Medications Generic Name Dose Route Start Last Admin Trade Name Freq PRN Reason Stop Dose Admin Acetaminophen 650 mg 07/13/18 17:45 07/13/18 20:20 Tylenol Tab* PO 650 mg Q6H PRN Administration FEVER/PAIN Amiodarone HCl 100 mg 07/14/18 09:00 07/20/18 10:25 Cordarone Tab* PO 100 mg DAILY MARCELA Administration Bisacodyl 10 mg 07/15/18 11:26 07/15/18 17:46 Dulcolax Supp* [place] 10 mg DAILY PRN Administration CONSTIPATION Clonidine HCl 0.1 mg 07/18/18 09:00 07/18/18 09:09 Pgihypka-Ewt-4 0.1 Mg Patch* TRANSDERM 0.1 mg Q7D MARCELA Administration Docusate Sodium 100 mg 07/15/18 21:00 07/20/18 10:33 Colace Cap* PO Not Given BID MARCELA Enoxaparin Sodium 40 mg 07/13/18 18:00 07/19/18 17:56 Lovenox(*) SUBCUT 40 mg Q24H MARCELA Administration Ferrous Sulfate 325 mg 07/14/18 09:00 07/20/18 10:25 Ferrous Sulfate Tab* PO 325 mg DAILY MARCELA Administration Methocarbamol 750 mg 07/16/18 12:46 07/17/18 11:01 Robaxin Tab* PO 750 mg TID PRN Administration SPASMS Metoprolol Tartrate 25 mg 07/13/18 21:00 07/20/18 10:25 Lopressor Tab* PO 25 mg BID MARCELA Administration Oxycodone HCl 5 mg 07/13/18 17:53 07/19/18 19:42 Roxycodone Tab* PO 5 mg Q6H PRN Administration PAIN - MODERATE TO SEVERE Polyethylene Glycol/Electrolytes 17 gm 07/15/18 10:50 Miralax* PO DAILY PRN CONSTIPATION Prochlorperazine 10 mg 07/13/18 17:55 07/20/18 07:47 Compazine Tab* PO 10 mg Q8HR PRN Administration NAUSEA Prochlorperazine 10 mg 11/14/18 07:00 Compazine Tab* PO 0700 COUNT INCLUDES THE [facility] Senna 2 tab 07/16/18 21:00 07/19/18 20:26 Senokot Tab* PO Not Given BEDTIME COUNT INCLUDES THE [facility] Vital Signs: Vital Signs Temp Pulse Resp BP Pulse Ox 98.8 F 96 18 126/75 96 07/20/18 06:18 07/20/18 06:18 07/20/18 06:18 07/20/18 06:18 07/20/18 06:18 Exam: GENERAL: affect slightly flat LUNGS: clear bilaterally HEART: reg rhythm ABDOMEN: Soft. Midline wound. GTube EXTREMITIES: decreased tone in LEs NEUROLOGIC: 4/5 strength in LEs. 4/5 LUE, 4+/5 RUE SKIN: midline incision open, open area on buttock Assessment/Plan: 1. Critical Care Myopathy: PT/OT 2. S/P Tila-en-Y Gastric Bypass, Peforation, Multiple Abcesses: Tolerating PO 3. Polymorphic VT Arrest, possibly from IV diflucan: Life Vest, Amiodarone, Lopressor 4. Malnutrition: Promote TF at 85 ml/hr through GTube. Have cut back to 6P-4A. Will increase to 90 ml/hr. H2O flush. PO. Calorie counts 5. Pressure Ulcer: Local care, alginate dressing, barrier cream, nutritional support 6. Advanced Directives: Full code 7. DVT Prophylaxis: Lovenox 07/20/18 16:46
[2018-07-20] MEDS: Enoxaparin(*) 40 MG/0.4 ML SYR SUBCUT SCH (18:12)
[2018-07-20] MEDS: Senna TAB PO SCH (21:21)
[2018-07-20] MEDS: Moisturizing CREAM* 120 GM JAR TOPICAL SCH (21:21)
[2018-07-21] MEDS: oxyCODONE TAB* 5 MG TAB PO PRN (02:12)
[2018-07-21 06:40] LABS: ABS Basophils 0.1 10^3/ul (0-0.2); ABS Eosinophils 0.2 10^3/ul (0-0.6); ABS Lymphocytes 2.4 10^3/ul (1.0-4.8); ABS Monocytes 0.9 10^3/ul (0-0.8); ABS Nucleated RBC 0 10^3/ul; Eosinophil % 2.5 % (0-6); Hematocrit 25 % (35-47); Hemoglobin 8.6 g/dl (12.0-16.0); Lymphocyte % 31.4 % (25-47); Mean Corpuscular HGB Conc 35 g/dl (31-36); Mean Corpuscular Hemoglobin 32 pg (27-31); Mean Corpuscular Volume 91 fL (80-97); Mean Platelet Volume 6.5 fL (7.4-10.4); Nucleated Red Blood Cells % 0.1; Platelet Count 328 10^3/ul (150-450); Red Cell Distribution Width 18 % (10.5-15); White Blood Count 7.6 10^3/ul (3.5-10.8)
[2018-07-21 06:55] LABS: EGFR Non-African American 125.9 (>60)
[2018-07-21] MEDS: Prochlorperazine TAB* 10 MG PO SCH (07:09)
[2018-07-21] MEDS: Amiodarone TAB* 200 MG PO SCH (10:32)
[2018-07-21] MEDS: Docusate CAP* 100 MG PO SCH ×2 (10:33→20:23)
[2018-07-21] MEDS: Moisturizing CREAM* 120 GM JAR TOPICAL SCH ×2 (10:33→20:24)
[2018-07-21] MEDS: Metoprolol Tartrate TAB* 25 MG PO SCH ×2 (10:33→20:23)
[2018-07-21] MEDS: Ferrous Sulfate TAB* 325 MG PO SCH (10:33)
[2018-07-21] MEDS: Enoxaparin(*) 40 MG/0.4 ML SYR SUBCUT SCH (17:59)
--- NOTE | 2018-07-21 20:18 | PN ---
Progress Note Date of Service: 07/21/18 Note: CARY DUMONT was visited. Therapy notes read and reviewed. Less nauseated this morning, after compazine given. Ate a grilled cheese for lunch, didn't work. Moving ok Current Medications: Active Medications Generic Name Dose Route Start Last Admin Trade Name Freq PRN Reason Stop Dose Admin Acetaminophen 650 mg 07/13/18 17:45 07/13/18 20:20 Tylenol Tab* PO 650 mg Q6H PRN Administration FEVER/PAIN Amiodarone HCl 100 mg 07/14/18 09:00 07/21/18 10:32 Cordarone Tab* PO 100 mg DAILY MARCELA Administration Bisacodyl 10 mg 07/15/18 11:26 07/15/18 17:46 Dulcolax Supp* [place] 10 mg DAILY PRN Administration CONSTIPATION Clonidine HCl 0.1 mg 07/18/18 09:00 07/18/18 09:09 Wmnshele-Liz-1 0.1 Mg Patch* TRANSDERM 0.1 mg Q7D MARCELA Administration Docusate Sodium 100 mg 07/15/18 21:00 07/21/18 10:33 Colace Cap* PO Not Given BID MARCELA Enoxaparin Sodium 40 mg 07/13/18 18:00 07/21/18 17:59 Lovenox(*) SUBCUT 40 mg Q24H MARCELA Administration Ferrous Sulfate 325 mg 07/14/18 09:00 07/21/18 10:33 Ferrous Sulfate Tab* PO 325 mg DAILY MARCELA Administration Methocarbamol 750 mg 07/16/18 12:46 07/17/18 11:01 Robaxin Tab* PO 750 mg TID PRN Administration SPASMS Metoprolol Tartrate 25 mg 07/13/18 21:00 07/21/18 10:33 Lopressor Tab* PO 25 mg BID MARCELA Administration Multi-Ingredient Ointment 1 applic 07/20/18 21:00 07/21/18 10:33 Hydrocerin* TOPICAL 1 applic BID MARCELA Administration Oxycodone HCl 5 mg 07/13/18 17:53 07/21/18 02:12 Roxycodone Tab* PO 5 mg Q6H PRN Administration PAIN - MODERATE TO SEVERE Polyethylene Glycol/Electrolytes 17 gm 07/15/18 10:50 Miralax* PO DAILY PRN CONSTIPATION Prochlorperazine 10 mg 07/13/18 17:55 07/20/18 07:47 Compazine Tab* PO 10 mg Q8HR PRN Administration NAUSEA Prochlorperazine 10 mg 07/21/18 07:00 07/21/18 07:09 Compazine Tab* PO 10 mg 0700 MARCELA Administration Senna 2 tab 07/16/18 21:00 07/20/18 21:21 Senokot Tab* PO 2 tab BEDTIME MARCELA Administration Vital Signs: Vital Signs Temp Pulse Resp BP Pulse Ox 97.9 F 88 18 127/77 97 07/21/18 16:04 07/21/18 16:04 07/21/18 19:02 07/21/18 16:04 07/21/18 19:09 Lab Results: Laboratory Results - last 24 hr 07/21/18 07/21/18 06:18 06:18 WBC 7.6 RBC 2.70 L Hgb 8.6 L Hct 25 L MCV 91 MCH 32 H MCHC 35 RDW 18 H Plt Count 328 MPV 6.5 L Neut % (Auto) 53.3 Lymph % (Auto) 31.4 [place] % (Auto) 11.8 H Eos % (Auto) 2.5 Baso % (Auto) 1.0 Absolute Neuts (auto) 4.0 Absolute Lymphs (auto) 2.4 Absolute Monos (auto) 0.9 H Absolute Eos (auto) 0.2 Absolute Basos (auto) 0.1 Absolute Nucleated RBC 0 Nucleated RBC % 0.1 Sodium 135 Potassium 4.0 Chloride 100 L Carbon Dioxide 27 Anion Gap 8 BUN 19 Creatinine 0.52 Est GFR ( Amer) 152.3 Est GFR (Non-Af Amer) 125.9 BUN/Creatinine Ratio 36.5 H Glucose 108 H Calcium 9.8 Total Bilirubin 0.40 AST 18 ALT 20 Alkaline Phosphatase 246 H Total Protein 7.1 Albumin 3.6 Globulin 3.5 Albumin/Globulin Ratio 1.0 Exam: GENERAL: affect slightly flat LUNGS: clear bilaterally HEART: reg rhythm ABDOMEN: Soft. Midline wound. GTube EXTREMITIES: decreased tone in LEs NEUROLOGIC: 4/5 strength in LEs. 4/5 LUE, 4+/5 RUE SKIN: midline incision open, open area on buttock Assessment/Plan: 1. Critical Care Myopathy: PT/OT 2. S/P Tila-en-Y Gastric Bypass, Peforation, Multiple Abcesses: Tolerating PO 3. Polymorphic VT Arrest, possibly from IV diflucan: Life Vest, Amiodarone, Lopressor 4. Malnutrition: Promote TF at 90 ml/hr through GTube. Have cut back to 6P-4A. H2O flush. PO. Calorie counts 5. Pressure Ulcer: Local care, alginate dressing, barrier cream, nutritional support 6. Advanced Directives: Full code 7. DVT Prophylaxis: Lovenox 07/21/18 20:18
[2018-07-21] MEDS: Senna TAB PO SCH (20:25)
--- NOTE | 2018-07-21 21:17 | CONS ---
CC: Dr. Rangel; Dr. Bam Davidson; Dr. Mich Ayala; Dr. Santoyo * CONSULTATION REPORT: DATE OF CONSULT: 07/21/18 PATIENT OF: Dr. Rangel and Dr. Bam Davidson in [place] and Dr. Mich Ayala in [place], and my office. HISTORY OF PRESENT ILLNESS: Please see my previous consult from 06/30/18. This is a 48-year-old woman, who had a complicated postop course after bariatric surgery. She had experienced a polymorphic VT arrest during that hospitalization of unclear etiology. She was transferred here for rehab and it was recommended that she have a LifeVest and continue amiodarone until defibrillator could be placed. I had the opportunity to review the case with Dr. Lisa Jimenez of EP at [facility] today. He kindly reviewed the records of the hospitalization as it pertained to her EP and Cardiology courses, my conversation summarized in a letter from earlier today. In brief, it appeared that the patient was extubated and doing well at the time of her arrest. According to Dr. Jimenez, he was not convinced that there was significant QT prolongation at the time of her arrest. According to Dr. Jimenez, she did appear to have either an APC with aberrancy or PVC, which initially landed on a T-wave and initiated polymorphic VT. Apparently, the polymorphic VT resolved with first chest compression of CPR and she went into sinus rhythm. At that time, it was thought possibly that this occurred in the setting of Diflucan and QT prolongation; this view was not confirmed during my conversation today with Dr. Jimenez. Of note, the Diflucan was stopped and she was loaded with amiodarone. She also had an echocardiogram, which revealed an EF of 55% to 59% with moderate inferoposterior hypokinesis, severe MR after the arrest. He also reported that the EKG changes that he saw on the rhythm strip were more suggestive of ischemia than QT prolongation. In addition, she had some troponin elevations. Apparently, they were elevated prior to the arrest including a troponin of 87 on 05/20/18, 112 on 05/25/18, 109 on 05/25/18, 95 on 05/26/18, 111 on 05/29/18, and subsequently in the range of 99 to 111 with an MB of 3.4 after 05/29/18. Normal troponin and lab was up to 14. Her subsequent echocardiogram at [facility] on 07/09/18 revealed [id number] decreased function with an EF of 40% to 45%, more pronounced hypokinesis in the inferoposterior segments and trace to mild MR. She also had nuclear stress test performed on 07/12/18, revealed moderate reversible ischemia in the lateral wall. It was felt to be intermediate risk. ASSESSMENT: In summary, Mrs Groves had a complicated course and a VT arrest of unclear etiology. I have discussed my conversation and these findings with the patient this evening and explained that further evaluation is warranted and consideration of a cath to exclude coronary artery disease as well as an EP consult to determine whether to proceed with defibrillator implantation should be considered. For the time being, I have recommended the following: I suggested we consider obtaining a cardiac catheterization definitely to exclude coronary ischemia. She understands my suggestion, but would like to delay that for now while she is still recovering from her critical care myopathy. I suggested she have an EP consult. We do not have an materials handling coordinator here and she plans on seeing her primary commercial green retrofit architect, Dr. Mich Ayala, in [place] and he could help direct her further to the EP consultation. She asked me to contact Dr. Ayala to update him as to these events. Since it is unclear how to assess her risk for recurrent arrhythmia and whether an ICD is indicated, I suggested that we consider implanting an implantable loop monitor and discontinue her amiodarone while she has the LifeVest on to help guide decisions about whether she needs amiodarone and/or an ICD. This will allow a period of observation off amiodarone and could be incorporated into decision making regarding a defibrillator. The patient understood these options. She is willing to consider an implantable loop monitor at this point in time and would like to defer the decision about cardiac catheterization and defibrillator. Therefore, I will discuss the case with Dr. Ayala tomorrow and she will continue her PMRU course well on LifeVest. Further recommendations will depend on her clinical course. In the meantime, we would avoid QT prolonging drugs and maintain her electrolytes at a normal range. She also has anemia of unclear etiology and we will consider further evaluation and treatment of that in the interim. The etiology of her VT arrest is unclear after my discussion with Dr. Jimenez. Possibilities include, but are not limited to nonischemic cardiomyopathy and ischemic cardiomyopathy, drug-induced arrhythmia, myocarditis, idiopathic VT or stress cardiomyopathy. over 65+ minutes spent face to face and coordinating care. [id number]/[facility] #: [id number] addendum: I subsequently learned that Dr. Ayala has left local practice and is being covered by Dr. Juan A Pryor. With the patient's consent, I discussed her case with Dr. Pryor and Dr. Broderick yesterday. Dr. Pryor has kindly agreed to see the patient in followup after discharge from [facility]. He stated that EP coverage in [place] is provided by [facility] coverage now. He will try to arrange consultation with one of the nearby EP MD's to facilitate continuity of care. He also proposed consideration of a cath but will discuss that with the patient after discharge. The patient was provided Dr. Pryor' contact information and agreed to arrange consultation in the near future. will continue amiodarone, toprol, and lifevest for now. TIFFANIE 16.18 DENICE
[2018-07-22] MEDS: oxyCODONE TAB* 5 MG TAB PO PRN (05:44)
[2018-07-22] MEDS: Prochlorperazine TAB* 10 MG PO SCH (07:28)
[2018-07-22] MEDS: Moisturizing CREAM* 120 GM JAR TOPICAL SCH ×2 (09:40→21:51)
[2018-07-22] MEDS: Docusate CAP* 100 MG PO SCH ×2 (09:40→20:52)
[2018-07-22] MEDS: Metoprolol Tartrate TAB* 25 MG PO SCH ×2 (09:40→20:25)
[2018-07-22] MEDS: Amiodarone TAB* 200 MG PO SCH (09:40)
[2018-07-22] MEDS: Ferrous Sulfate TAB* 325 MG PO SCH (09:40)
[2018-07-22] MEDS: Prochlorperazine TAB* 10 MG PO PRN (14:24)
[2018-07-22] MEDS: Enoxaparin(*) 40 MG/0.4 ML SYR SUBCUT SCH (18:26)
--- NOTE | 2018-07-22 20:37 | PN ---
Progress Note Date of Service: 07/22/18 Note: CARY DUMONT was visited. Therapy notes read and reviewed. She had some nausea earlier today but did well with PT. Was able to walk but still fatigues easily. Will order liquid vitamins. Appreciate Dr. Santoyo's help. May elect to d/c amio while on life vest and follow-await Dr. Santoyo's further suggestions Current Medications: Active Medications Generic Name Dose Route Start Last Admin Trade Name Freq PRN Reason Stop Dose Admin Acetaminophen 650 mg 07/13/18 17:45 07/13/18 20:20 Tylenol Tab* PO 650 mg Q6H PRN Administration FEVER/PAIN Amiodarone HCl 100 mg 07/14/18 09:00 07/22/18 09:40 Cordarone Tab* PO 100 mg DAILY MARCELA Administration Bisacodyl 10 mg 07/15/18 11:26 07/15/18 17:46 Dulcolax Supp* CT 10 mg DAILY PRN Administration CONSTIPATION Calcium Carbonate 500 mg 07/22/18 21:00 Tums* PO TID MARCELA Clonidine HCl 0.1 mg 07/18/18 09:00 07/18/18 09:09 Mvdqzkvu-Qpf-3 0.1 Mg Patch* TRANSDERM 0.1 mg Q7D MARCELA Administration Docusate Sodium 100 mg 07/15/18 21:00 07/22/18 09:40 Colace Cap* PO 100 mg BID MARCELA Administration Enoxaparin Sodium 40 mg 07/13/18 18:00 07/22/18 18:26 Lovenox(*) SUBCUT 40 mg Q24H MARCELA Administration Ferrous Sulfate 300 mg 07/23/18 09:00 Feosol Liq* PO DAILY MARCELA Melatonin 3 mg 07/22/18 20:26 Melatonin PO BEDTIME PRN SLEEP Protocol Methocarbamol 750 mg 07/16/18 12:46 07/17/18 11:01 Robaxin Tab* PO 750 mg TID PRN Administration SPASMS Metoprolol Tartrate 25 mg 07/13/18 21:00 07/22/18 20:25 Lopressor Tab* PO 25 mg BID MARCELA Administration Multi-Ingredient Ointment 1 applic 07/20/18 21:00 07/22/18 09:40 Hydrocerin* TOPICAL 1 applic BID MARCELA Administration Multivitamins 15 ml 07/23/18 09:00 Theragran W/Minerals Liq* PO DAILY MARCELA Oxycodone HCl 5 mg 07/13/18 17:53 07/22/18 05:44 Roxycodone Tab* PO 5 mg Q6H PRN Administration PAIN - MODERATE TO SEVERE Polyethylene Glycol/Electrolytes 17 gm 07/15/18 10:50 Miralax* PO DAILY PRN CONSTIPATION Prochlorperazine 10 mg 07/13/18 17:55 07/22/18 14:24 Compazine Tab* PO 10 mg Q8HR PRN Administration NAUSEA Prochlorperazine 10 mg 07/21/18 07:00 07/22/18 07:28 Compazine Tab* PO 10 mg 0700 MARCELA Administration Senna 2 tab 07/16/18 21:00 07/21/18 20:25 Senokot Tab* PO Not Given BEDTIME MARCELA Vital Signs: Vital Signs Temp Pulse Resp BP Pulse Ox 97.8 F 91 16 128/84 98 07/22/18 16:36 07/22/18 16:36 07/22/18 16:36 07/22/18 16:36 07/22/18 16:36 Exam: GENERAL: affect slightly flat LUNGS: clear bilaterally HEART: reg rhythm ABDOMEN: Soft. Midline wound. GTube EXTREMITIES: decreased tone in LEs NEUROLOGIC: 4/5 strength in LEs. 4/5 LUE, 4+/5 RUE SKIN: midline incision open, open area on buttock Assessment/Plan: 1. Critical Care Myopathy: PT/OT 2. S/P Tila-en-Y Gastric Bypass, Peforation, Multiple Abcesses: Tolerating PO 3. Polymorphic VT Arrest: Life Vest, Amiodarone, Lopressor. Appreciate Dr. Santoyo's follow up. Will need cardiac cath after d/c. Will see if d/c amio 4. Malnutrition: Promote TF at 90 ml/hr through GTube. Have cut back to 6P-4A. H2O flush. PO. Calorie counts. Liquid vitamins 5. Pressure Ulcer: Local care, alginate dressing, barrier cream, nutritional support 6. Advanced Directives: Full code 7. DVT Prophylaxis: Lovenox 07/22/18 20:37 07/22/18 20:41
[2018-07-22] MEDS: Senna TAB PO SCH (20:52)
[2018-07-22] MEDS: Melatonin 3 MG TAB PO PRN (21:40)
[2018-07-22] MEDS: Calcium Carbonate CHEW TAB* 500 MG (TUMS) PO SCH (21:44)
[2018-07-23] MEDS: oxyCODONE TAB* 5 MG TAB PO PRN (02:44)
[2018-07-23] MEDS: Prochlorperazine TAB* 10 MG PO SCH (06:26)
[2018-07-23] MEDS: Moisturizing CREAM* 120 GM JAR TOPICAL SCH ×2 (09:20→21:16)
[2018-07-23] MEDS: Amiodarone TAB* 200 MG PO SCH (10:10)
[2018-07-23] MEDS: Multivitamins ADULT w/MIN LIQ* 15 ML UDC PO SCH (10:10)
[2018-07-23] MEDS: Metoprolol Tartrate TAB* 25 MG PO SCH ×2 (10:10→21:23)
[2018-07-23] MEDS: Docusate CAP* 100 MG PO SCH ×2 (10:10→21:24)
[2018-07-23] MEDS: Ferrous Sulfate LIQ* 300 MG/5 ML UDC PO SCH (10:10)
[2018-07-23] MEDS: Calcium Carbonate CHEW TAB* 500 MG (TUMS) PO SCH ×3 (10:15→21:24)
[2018-07-23] MEDS: Prochlorperazine TAB* 10 MG PO PRN (18:33)
[2018-07-23] MEDS: Enoxaparin(*) 40 MG/0.4 ML SYR SUBCUT SCH (18:33)
--- NOTE | 2018-07-23 20:40 | PN ---
Progress Note Date of Service: 07/23/18 Note: CARY DUMONT was visited. Therapy notes read and reviewed. She did a little better today with less nausea. She will have someone from the bariatric program at [facility] speak with her next week. Current Medications: Active Medications Generic Name Dose Route Start Last Admin Trade Name Freq PRN Reason Stop Dose Admin Acetaminophen 650 mg 07/13/18 17:45 07/13/18 20:20 Tylenol Tab* PO 650 mg Q6H PRN Administration FEVER/PAIN Amiodarone HCl 100 mg 07/14/18 09:00 07/23/18 10:10 Cordarone Tab* PO 100 mg DAILY MARCELA Administration Bisacodyl 10 mg 07/15/18 11:26 07/15/18 17:46 Dulcolax Supp* DE 10 mg DAILY PRN Administration CONSTIPATION Calcium Carbonate 500 mg 07/22/18 21:00 07/23/18 12:43 Tums* PO Not Given TID MARCELA Clonidine HCl 0.1 mg 07/18/18 09:00 07/18/18 09:09 Iukculhu-Xse-9 0.1 Mg Patch* TRANSDERM 0.1 mg Q7D MARCELA Administration Docusate Sodium 100 mg 07/15/18 21:00 07/23/18 10:10 Colace Cap* PO 100 mg BID MARCELA Administration Enoxaparin Sodium 40 mg 07/13/18 18:00 07/23/18 18:33 Lovenox(*) SUBCUT 40 mg Q24H MARCELA Administration Ferrous Sulfate 300 mg 07/23/18 09:00 07/23/18 10:10 Feosol Liq* PO 300 mg DAILY MARCELA Administration Melatonin 3 mg 07/22/18 20:26 07/22/18 21:40 Melatonin PO 3 mg BEDTIME PRN Administration SLEEP Protocol Methocarbamol 750 mg 07/16/18 12:46 07/17/18 11:01 Robaxin Tab* PO 750 mg TID PRN Administration SPASMS Metoprolol Tartrate 25 mg 07/13/18 21:00 07/23/18 10:10 Lopressor Tab* PO 25 mg BID MARCELA Administration Multi-Ingredient Ointment 1 applic 07/20/18 21:00 07/23/18 09:20 Hydrocerin* TOPICAL 1 applic BID MARCELA Administration Multivitamins 15 ml 07/23/18 09:00 07/23/18 10:10 Theragran W/Minerals Liq* PO 15 ml DAILY MARCELA Administration Oxycodone HCl 5 mg 07/13/18 17:53 07/23/18 02:44 Roxycodone Tab* PO 5 mg Q6H PRN Administration PAIN - MODERATE TO SEVERE Polyethylene Glycol/Electrolytes 17 gm 07/15/18 10:50 Miralax* PO DAILY PRN CONSTIPATION Prochlorperazine 10 mg 07/13/18 17:55 07/23/18 18:33 Compazine Tab* PO 10 mg Q8HR PRN Administration NAUSEA Prochlorperazine 10 mg 07/21/18 07:00 07/23/18 06:26 Compazine Tab* PO 10 mg 0700 MARCELA Administration Senna 2 tab 07/16/18 21:00 07/22/18 20:52 Senokot Tab* PO Not Given BEDTIME MARCELA Vital Signs: Vital Signs Temp Pulse Resp BP Pulse Ox 98.1 F 84 18 117/73 97 07/23/18 14:46 07/23/18 14:46 07/23/18 14:46 07/23/18 14:46 07/23/18 14:46 Lab Results: Laboratory Results - last 24 hr 07/23/18 06:55 Vitamin B12 580 Folate 15.96 Exam: GENERAL: affect slightly flat LUNGS: clear bilaterally HEART: reg rhythm ABDOMEN: Soft. Midline wound. GTube EXTREMITIES: decreased tone in LEs NEUROLOGIC: 4/5 strength in LEs. 4/5 LUE, 4+/5 RUE SKIN: midline incision open, open area on buttock Assessment/Plan: 1. Critical Care Myopathy: PT/OT 2. S/P Tila-en-Y Gastric Bypass, Peforation, Multiple Abcesses: Tolerating PO. CLUTCH MECHANIC from [facility] to visit next week 3. Polymorphic VT Arrest: Life Vest, Amiodarone, Lopressor. Appreciate Dr. Santoyo's follow up. Will need cardiac cath after d/c. Will see if d/c amio 4. Malnutrition: Promote TF at 90 ml/hr through GTube. Have cut back to 6P-4A. H2O flush. PO. Calorie counts. Liquid vitamins 5. Pressure Ulcer: Local care, barrier cream, nutritional support 6. Advanced Directives: Full code 7. DVT Prophylaxis: Lovenox 07/23/18 20:40
[2018-07-23] MEDS: Melatonin 3 MG TAB PO PRN (21:23)
[2018-07-23] MEDS: Senna TAB PO SCH (21:24)
[2018-07-24] MEDS: oxyCODONE TAB* 5 MG TAB PO PRN (04:46)
[2018-07-24] MEDS: Prochlorperazine TAB* 10 MG PO SCH (06:11)
[2018-07-24] MEDS: Calcium Carbonate CHEW TAB* 500 MG (TUMS) PO SCH ×3 (09:20→21:05)
[2018-07-24] MEDS: Docusate CAP* 100 MG PO SCH ×2 (09:21→21:04)
[2018-07-24] MEDS: Ferrous Sulfate LIQ* 300 MG/5 ML UDC PO SCH (09:21)
[2018-07-24] MEDS: Metoprolol Tartrate TAB* 25 MG PO SCH ×3 (09:22→21:04)
[2018-07-24] MEDS: Multivitamins ADULT w/MIN LIQ* 15 ML UDC PO SCH (09:25)
[2018-07-24] MEDS: Amiodarone TAB* 200 MG PO SCH (09:26)
[2018-07-24] MEDS: Moisturizing CREAM* 120 GM JAR TOPICAL SCH ×2 (09:39→20:57)
[2018-07-24] MEDS: Prochlorperazine TAB* 10 MG PO PRN (16:28)
--- NOTE | 2018-07-24 18:08 | PN ---
Progress Note Date of Service: 07/24/18 Note: CARY DUMONT was visited. Therapy notes read and reviewed. She had some appetite today and moving fairly well. No complaints otherwise Current Medications: Active Medications Generic Name Dose Route Start Last Admin Trade Name Freq PRN Reason Stop Dose Admin Acetaminophen 650 mg 07/13/18 17:45 07/13/18 20:20 Tylenol Tab* PO 650 mg Q6H PRN Administration FEVER/PAIN Amiodarone HCl 100 mg 07/14/18 09:00 07/24/18 09:26 Cordarone Tab* PO 100 mg DAILY MARCELA Administration Bisacodyl 10 mg 07/15/18 11:26 07/15/18 17:46 Dulcolax Supp* MS 10 mg DAILY PRN Administration CONSTIPATION Calcium Carbonate 500 mg 07/22/18 21:00 07/24/18 13:35 Tums* PO Not Given TID MARCELA Clonidine HCl 0.1 mg 07/18/18 09:00 07/18/18 09:09 Cpcicfud-Wnb-4 0.1 Mg Patch* TRANSDERM 0.1 mg Q7D MARCELA Administration Docusate Sodium 100 mg 07/15/18 21:00 07/24/18 09:21 Colace Cap* PO 100 mg BID MARCELA Administration Enoxaparin Sodium 40 mg 07/13/18 18:00 07/23/18 18:33 Lovenox(*) SUBCUT 40 mg Q24H MARCELA Administration Ferrous Sulfate 300 mg 07/23/18 09:00 07/24/18 09:21 Feosol Liq* PO 300 mg DAILY MARCELA Administration Melatonin 3 mg 07/22/18 20:26 07/23/18 21:23 Melatonin PO 3 mg BEDTIME PRN Administration SLEEP Protocol Methocarbamol 750 mg 07/16/18 12:46 07/17/18 11:01 Robaxin Tab* PO 750 mg TID PRN Administration SPASMS Metoprolol Tartrate 25 mg 07/13/18 21:00 07/24/18 09:22 Lopressor Tab* PO 25 mg BID MARCELA Administration Multi-Ingredient Ointment 1 applic 07/20/18 21:00 07/24/18 09:39 Hydrocerin* TOPICAL 1 applic BID MARCELA Administration Multivitamins 15 ml 07/23/18 09:00 07/24/18 09:25 Theragran W/Minerals Liq* PO 15 ml DAILY MARCELA Administration Oxycodone HCl 5 mg 07/13/18 17:53 07/24/18 04:46 Roxycodone Tab* PO 5 mg Q6H PRN Administration PAIN - MODERATE TO SEVERE Polyethylene Glycol/Electrolytes 17 gm 07/15/18 10:50 Miralax* PO DAILY PRN CONSTIPATION Prochlorperazine 10 mg 07/13/18 17:55 07/24/18 16:28 Compazine Tab* PO 10 mg Q8HR PRN Administration NAUSEA Prochlorperazine 10 mg 07/21/18 07:00 07/24/18 06:11 Compazine Tab* PO 10 mg 0700 MARCELA Administration Senna 2 tab 07/16/18 21:00 07/23/18 21:24 Senokot Tab* PO Not Given BEDTIME MARCELA Vital Signs: Vital Signs Temp Pulse Resp BP Pulse Ox 97.8 F 89 20 103/67 97 07/24/18 15:34 07/24/18 15:34 07/24/18 16:17 07/24/18 15:34 07/24/18 16:17 Exam: GENERAL: in no distress LUNGS: clear bilaterally HEART: reg rhythm ABDOMEN: Soft. Midline wound. GTube EXTREMITIES: decreased tone in LEs NEUROLOGIC: 4/5 strength in LEs. 4/5 LUE, 4+/5 RUE SKIN: midline incision open, open area on buttock Assessment/Plan: 1. Critical Care Myopathy: PT/OT 2. S/P Tila-en-Y Gastric Bypass, Peforation, Multiple Abcesses: Tolerating PO. TRAVEL SALES CONSULTANT from [facility] to visit next week 3. Polymorphic VT Arrest: Life Vest, Amiodarone, Lopressor. Appreciate Dr. Santoyo's follow up. Will need cardiac cath after d/c. Will see if d/c amio 4. Malnutrition: Promote TF at 90 ml/hr through GTube. Have cut back to 6P-4A. H2O flush. PO. Calorie counts. Liquid vitamins 5. Pressure Ulcer: Local care, barrier cream, nutritional support 6. Advanced Directives: Full code 7. DVT Prophylaxis: Lovenox 07/24/18 18:08
[2018-07-24] MEDS: Enoxaparin(*) 40 MG/0.4 ML SYR SUBCUT SCH (18:11)
[2018-07-24] MEDS: Melatonin 3 MG TAB PO PRN (21:04)
[2018-07-24] MEDS: Senna TAB PO SCH (21:05)
[2018-07-25] MEDS: Prochlorperazine TAB* 10 MG PO SCH (07:29)
[2018-07-25] MEDS: Docusate CAP* 100 MG PO SCH ×2 (11:10→21:04)
[2018-07-25] MEDS: cloNIDine 0.1 MG PATCH* 0.1 MG/24 HR 7 DAY PATCH TRANSDERM SCH (11:10)
[2018-07-25] MEDS: Calcium Carbonate CHEW TAB* 500 MG (TUMS) PO SCH ×3 (11:10→21:03)
[2018-07-25] MEDS: Amiodarone TAB* 200 MG PO SCH (11:10)
[2018-07-25] MEDS: Ferrous Sulfate LIQ* 300 MG/5 ML UDC PO SCH (11:11)
[2018-07-25] MEDS: Multivitamins ADULT w/MIN LIQ* 15 ML UDC PO SCH (11:11)
[2018-07-25] MEDS: Metoprolol Tartrate TAB* 25 MG PO SCH ×2 (11:11→21:04)
[2018-07-25] MEDS: Moisturizing CREAM* 120 GM JAR TOPICAL SCH ×2 (12:08→21:07)
--- NOTE | 2018-07-25 16:06 | PN ---
Progress Note Date of Service: 07/25/18 Note: CARY DUMONT was visited. Nursing notes read and reviewed. She is doing somewhat better with eating but still needs work. Current Medications: Active Medications Generic Name Dose Route Start Last Admin Trade Name Freq PRN Reason Stop Dose Admin Acetaminophen 650 mg 07/13/18 17:45 07/13/18 20:20 Tylenol Tab* PO 650 mg Q6H PRN Administration FEVER/PAIN Amiodarone HCl 100 mg 07/14/18 09:00 07/25/18 11:10 Cordarone Tab* PO 100 mg DAILY MARCELA Administration Bisacodyl 10 mg 07/15/18 11:26 07/15/18 17:46 Dulcolax Supp* [place] 10 mg DAILY PRN Administration CONSTIPATION Calcium Carbonate 500 mg 07/22/18 21:00 07/25/18 15:11 Tums* PO Not Given TID MARCELA Clonidine HCl 0.1 mg 07/18/18 09:00 07/25/18 11:10 Sythisiw-Ewc-1 0.1 Mg Patch* TRANSDERM 0.1 mg Q7D MARCELA Administration Docusate Sodium 100 mg 07/15/18 21:00 07/25/18 11:10 Colace Cap* PO 100 mg BID MARCELA Administration Enoxaparin Sodium 40 mg 07/13/18 18:00 07/24/18 18:11 Lovenox(*) SUBCUT 40 mg Q24H MARCELA Administration Ferrous Sulfate 300 mg 07/23/18 09:00 07/25/18 11:11 Feosol Liq* PO 300 mg DAILY MARCELA Administration Melatonin 3 mg 07/22/18 20:26 07/24/18 21:04 Melatonin PO 3 mg BEDTIME PRN Administration SLEEP Protocol Methocarbamol 750 mg 07/16/18 12:46 07/17/18 11:01 Robaxin Tab* PO 750 mg TID PRN Administration SPASMS Metoprolol Tartrate 25 mg 07/13/18 21:00 07/25/18 11:11 Lopressor Tab* PO 25 mg BID MARCELA Administration Multi-Ingredient Ointment 1 applic 07/20/18 21:00 07/25/18 12:08 Hydrocerin* TOPICAL 1 applic BID MARCELA Administration Multivitamins 15 ml 07/23/18 09:00 07/25/18 11:11 Theragran W/Minerals Liq* PO 15 ml DAILY MARCELA Administration Oxycodone HCl 5 mg 07/13/18 17:53 07/24/18 04:46 Roxycodone Tab* PO 5 mg Q6H PRN Administration PAIN - MODERATE TO SEVERE Polyethylene Glycol/Electrolytes 17 gm 07/15/18 10:50 Miralax* PO DAILY PRN CONSTIPATION Prochlorperazine 10 mg 07/13/18 17:55 07/24/18 16:28 Compazine Tab* PO 10 mg Q8HR PRN Administration NAUSEA Prochlorperazine 10 mg 07/21/18 07:00 07/25/18 07:29 Compazine Tab* PO 10 mg 0700 MARCELA Administration Senna 2 tab 07/16/18 21:00 07/24/18 21:05 Senokot Tab* PO Not Given BEDTIME MARCELA Vital Signs: Vital Signs Temp Pulse Resp BP Pulse Ox 97.6 F 91 16 119/63 95 07/25/18 05:03 07/25/18 05:03 07/25/18 08:00 07/25/18 05:03 07/25/18 05:03 Exam: GENERAL: in no distress LUNGS: clear bilaterally HEART: reg rhythm ABDOMEN: Soft. Midline wound. GTube EXTREMITIES: decreased tone in LEs NEUROLOGIC: 4/5 strength in LEs. 4/5 LUE, 4+/5 RUE SKIN: midline incision open, open area on buttock Assessment/Plan: 1. Critical Care Myopathy: PT/OT 2. S/P Tila-en-Y Gastric Bypass, Peforation, Multiple Abcesses: Tolerating PO. RN FACULTY from [facility] to visit tomorrow 3. Polymorphic VT Arrest: Life Vest, Amiodarone, Lopressor. Appreciate Dr. Santoyo's follow up. Will need cardiac cath after d/c. Will see if d/c amio 4. Malnutrition: Promote TF at 90 ml/hr through GTube. Have cut back to 6P-4A. H2O flush. PO. Calorie counts. Liquid vitamins 5. Pressure Ulcer: Local care, barrier cream, nutritional support 6. Advanced Directives: Full code 7. DVT Prophylaxis: Lovenox 07/25/18 16:06
[2018-07-25] MEDS: Enoxaparin(*) 40 MG/0.4 ML SYR SUBCUT SCH (20:01)
[2018-07-25] MEDS: Senna TAB PO SCH (21:04)
[2018-07-26] MEDS: oxyCODONE TAB* 5 MG TAB PO PRN ×2 (00:59→22:13)
[2018-07-26] MEDS: Prochlorperazine TAB* 10 MG PO SCH (08:06)
[2018-07-26] MEDS: Calcium Carbonate CHEW TAB* 500 MG (TUMS) PO SCH ×3 (08:11→21:13)
[2018-07-26] MEDS: Moisturizing CREAM* 120 GM JAR TOPICAL SCH ×2 (08:58→21:16)
[2018-07-26] MEDS: Metoprolol Tartrate TAB* 25 MG PO SCH ×2 (09:50→21:14)
[2018-07-26] MEDS: Amiodarone TAB* 200 MG PO SCH (09:51)
[2018-07-26] MEDS: Docusate CAP* 100 MG PO SCH ×2 (09:51→21:12)
[2018-07-26] MEDS: Multivitamins ADULT w/MIN LIQ* 15 ML UDC PO SCH (10:59)
[2018-07-26] MEDS: Ferrous Sulfate LIQ* 300 MG/5 ML UDC PO SCH (10:59)
--- NOTE | 2018-07-26 19:08 | PN ---
Progress Note Date of Service: 07/26/18 Note: CARY DUMONT was visited. Therapy notes read and reviewed.She met with the SUPERVISOR [employer] from [facility] today to discuss dietary choices. Protein choices like peanut butter might be helpful. Walkerd pretty far with PT but then was wiped out. Current Medications: Active Medications Generic Name Dose Route Start Last Admin Trade Name Freq PRN Reason Stop Dose Admin Acetaminophen 650 mg 07/13/18 17:45 07/13/18 20:20 Tylenol Tab* PO 650 mg Q6H PRN Administration FEVER/PAIN Amiodarone HCl 100 mg 07/14/18 09:00 07/26/18 09:51 Cordarone Tab* PO 100 mg DAILY MARCELA Administration Bisacodyl 10 mg 07/15/18 11:26 07/15/18 17:46 Dulcolax Supp* ND 10 mg DAILY PRN Administration CONSTIPATION Calcium Carbonate 500 mg 07/22/18 21:00 07/26/18 12:35 Tums* PO Not Given TID MARCELA Clonidine HCl 0.1 mg 07/18/18 09:00 07/25/18 11:10 Uqzkknen-Zki-4 0.1 Mg Patch* TRANSDERM 0.1 mg Q7D MARCELA Administration Docusate Sodium 100 mg 07/15/18 21:00 07/26/18 09:51 Colace Cap* PO 100 mg BID MARCELA Administration Enoxaparin Sodium 40 mg 07/13/18 18:00 07/25/18 20:01 Lovenox(*) SUBCUT 40 mg Q24H MARCELA Administration Ferrous Sulfate 300 mg 07/23/18 09:00 07/26/18 10:59 Feosol Liq* PO 300 mg DAILY MARCELA Administration Melatonin 3 mg 07/22/18 20:26 07/24/18 21:04 Melatonin PO 3 mg BEDTIME PRN Administration SLEEP Protocol Methocarbamol 750 mg 07/16/18 12:46 07/17/18 11:01 Robaxin Tab* PO 750 mg TID PRN Administration SPASMS Metoprolol Tartrate 25 mg 07/13/18 21:00 07/26/18 09:50 Lopressor Tab* PO 25 mg BID MARCELA Administration Multi-Ingredient Ointment 1 applic 07/20/18 21:00 07/26/18 08:58 Hydrocerin* TOPICAL 1 applic BID MARCELA Administration Multivitamins 15 ml 07/23/18 09:00 07/26/18 10:59 Theragran W/Minerals Liq* PO 15 ml DAILY MARCELA Administration Oxycodone HCl 5 mg 07/13/18 17:53 07/26/18 00:59 Roxycodone Tab* PO 5 mg Q6H PRN Administration PAIN - MODERATE TO SEVERE Polyethylene Glycol/Electrolytes 17 gm 07/15/18 10:50 Miralax* PO DAILY PRN CONSTIPATION Prochlorperazine 10 mg 07/13/18 17:55 07/24/18 16:28 Compazine Tab* PO 10 mg Q8HR PRN Administration NAUSEA Prochlorperazine 10 mg 07/21/18 07:00 07/26/18 08:06 Compazine Tab* PO 10 mg 0700 MARCELA Administration Senna 2 tab 07/16/18 21:00 07/25/18 21:04 Senokot Tab* PO Not Given BEDTIME MARCELA Vital Signs: Vital Signs Temp Pulse Resp BP Pulse Ox 97.5 F 78 19 119/75 100 07/26/18 16:01 07/26/18 16:01 07/26/18 16:01 07/26/18 16:01 07/26/18 16:01 Exam: GENERAL: in no distress LUNGS: clear bilaterally HEART: reg rhythm ABDOMEN: Soft. Midline wound. GTube EXTREMITIES: decreased tone in LEs NEUROLOGIC: 4/5 strength in LEs. 4/5 LUE, 4+/5 RUE SKIN: midline incision open, open area on buttock Assessment/Plan: 1. Critical Care Myopathy: PT/OT 2. S/P Tila-en-Y Gastric Bypass, Peforation, Multiple Abcesses: Tolerating PO. 3. Polymorphic VT Arrest: Life Vest, Amiodarone, Lopressor. Appreciate Dr. Santoyo's follow up. Will need cardiac cath after d/c. Will see if d/c amio 4. Malnutrition: Promote TF at 90 ml/hr through GTube. Have cut back to 6P-4A. H2O flush. PO. Calorie counts. Liquid vitamins 5. Pressure Ulcer: Local care, barrier cream, nutritional support 6. Advanced Directives: Full code 7. DVT Prophylaxis: Lovenox 07/26/18 19:08
[2018-07-26] MEDS: Enoxaparin(*) 40 MG/0.4 ML SYR SUBCUT SCH (19:10)
[2018-07-26] MEDS: Senna TAB PO SCH (21:12)
[2018-07-27] MEDS: oxyCODONE TAB* 5 MG TAB PO PRN ×2 (04:14→20:56)
[2018-07-27] MEDS: Prochlorperazine TAB* 10 MG PO SCH (06:34)
--- NOTE | 2018-07-27 08:08 | CONSULT ---
Consult Consult: CC: Difficulty with diet progression s/p julianna-en-y gastric bypass HPI: Ms. Groves is a 48 year old female, admitted to the [facility] for critical care myopathy. Consultation was requested as the patient is 3 months s/p julianna-en-y gastric bypass and is having difficulty with diet progression. Briefly, Ms. Groves underwent laparoscopic julianna-en-y gastric bypass on 04/27/18 at [facility]. On 05/01/18, she was taken back to the OR for laparotomy to treat an anastomotic leak. She remained intubated until 05/12/18. She went on to develop further complications including acute renal injury, pelvic abcess, and C-Diff. She was then transferred to [facility] on 05/20/18. Nutrition was given through G-tube initially; started clear liquid diet on 06/29. She gradually progressed to a pureed diet. She had advanced to a full diet on 07/13/18, but has had difficulty with this stage. She was transferred to [facility] for rehab on 07/23/18 and notes that while she is progressing with rehabilitation, she continues to struggle with diet and is worried that this her primary barrier to going home. Yesterday had cornflakes and milk for breakfast. Tolerated it well, but vomited when she was given a multivitamin several minutes later. Other foods that have caused issues include Ghanaian toast, grilled cheese, chicken breast. It feels like the food is getting stuck; if she is able to get past that, she vomits soon after eating. Foods that are well tolerated include soup, popsicles , puddings. She is particular about foods and does not enjoy many of the foods offered to her at the hospital. She is also having trouble with hydration, as she spends most of her day in therapy and is not able to drink throughout the day. This has made it difficult for her to keep food and beverages . The majority of her nutrition is through her G-tube. Calorie counts from dietary average 200/day. PMH: Hypertension, obesity, idiopathic peripheral neuropathy, pre-diabetes, anemia, ventricular tachycardia Social History: Pt resides with her 16 year old daughter, her father, and her fiance in [place], [place]. 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 Allergies: fluconazole Allergy (Verified 07/08/18 13:38) Unknown Reaction Details Hx Medication: Acetaminophen TAB* [Tylenol TAB*] 325 mg PO Q6H PRN 07/08/18 Amiodarone TAB* [Cordarone TAB*] 200 mg PO DAILY 07/08/18 Bisacodyl SUPP* [Dulcolax Supp*] [address] DAILY PRN 07/08/18 Ferrous Sulfate 325 mg PO DAILY 07/08/18 Magnesium Oxide [Magnesium] 500 mg PO DAILY 07/08/18 Metoprolol Tartrate 50 mg PO BID 07/08/18 Vital Signs Temp Pulse Resp BP Pulse Ox 36.7 C 84 20 109/65 94 07/27/18 06:31 07/27/18 06:31 07/27/18 06:31 07/27/18 06:31 07/27/18 06:31 Laboratory Last Values WBC 7.6 10^3/ul (3.5-10.8) 07/21/18 06:18 RBC 2.70 10^6/ul (4.00-5.40) L 07/21/18 06:18 Hgb 8.6 g/dl (12.0-16.0) L 07/21/18 06:18 Hct 25 % (35-47) L 07/21/18 06:18 MCV 91 fL (80-97) 07/21/18 06:18 MCH 32 pg (27-31) H 07/21/18 06:18 MCHC 35 g/dl (31-36) 07/21/18 06:18 RDW 18 % (10.5-15) H 07/21/18 06:18 Plt Count 328 10^3/ul (150-450) 07/21/18 06:18 MPV 6.5 fL (7.4-10.4) L 07/21/18 06:18 Neut % (Auto) 53.3 % (38-83) 07/21/18 06:18 Lymph % (Auto) 31.4 % (25-47) 07/21/18 06:18 [place] % (Auto) 11.8 % (0-7) H 07/21/18 06:18 Eos % (Auto) 2.5 % (0-6) 07/21/18 06:18 Baso % (Auto) 1.0 % (0-2) 07/21/18 06:18 Absolute Neuts (auto) 4.0 10^3/ul (1.5-7.7) 07/21/18 06:18 Absolute Lymphs (auto) 2.4 10^3/ul (1.0-4.8) 07/21/18 06:18 Absolute Monos (auto) 0.9 10^3/ul (0-0.8) H 07/21/18 06:18 Absolute Eos (auto) 0.2 10^3/ul (0-0.6) 07/21/18 06:18 Absolute Basos (auto) 0.1 10^3/ul (0-0.2) 07/21/18 06:18 Absolute Nucleated RBC 0 10^3/ul 07/21/18 06:18 Nucleated RBC % 0.1 07/21/18 06:18 INR (Anticoag Therapy) 0.94 (0.77-1.02) 07/14/18 06:04 Sodium 135 mmol/L (135-145) 07/21/18 06:18 Potassium 4.0 mmol/L (3.5-5.0) 07/21/18 06:18 Chloride 100 mmol/L (101-111) L 07/21/18 06:18 Carbon Dioxide 27 mmol/L (22-32) 07/21/18 06:18 Anion Gap 8 mmol/L (2-11) 07/21/18 06:18 BUN 19 mg/dL (6-24) 07/21/18 06:18 Creatinine 0.52 mg/dL (0.51-0.95) 07/21/18 06:18 Est GFR ( Amer) 152.3 (>60) 07/21/18 06:18 Est GFR (Non-Af Amer) 125.9 (>60) 07/21/18 06:18 BUN/Creatinine Ratio 36.5 (8-20) H 07/21/18 06:18 Glucose 108 mg/dL (70-100) H 07/21/18 06:18 Calcium 9.8 mg/dL (8.6-10.3) 07/21/18 06:18 Total Bilirubin 0.40 mg/dL (0.2-1.0) 07/21/18 06:18 AST 18 U/L (13-39) 07/21/18 06:18 ALT 20 U/L (7-52) 07/21/18 06:18 Alkaline Phosphatase 246 U/L (34-104) H 07/21/18 06:18 Total Protein 7.1 g/dL (6.4-8.9) 07/21/18 06:18 Albumin 3.6 g/dL (3.2-5.2) 07/21/18 06:18 Globulin 3.5 g/dL (2-4) 07/21/18 06:18 Albumin/Globulin Ratio 1.0 (1-3) 07/21/18 06:18 Vitamin B12 580 pg/mL (180-914) 07/23/18 06:55 Folate 15.96 ng/mL (>3.99) 07/23/18 06:55 Exam: Constitutional: Pt is laying in bed with father at bedside. She is in no acute distress. Psych: attitude is appropriate. Mood is normal. Affect is normal. Cognition: Judgment and insight are grossly intact. Assessment/Plan: 48 year old female, 3 months s/p laparoscopic julianna-en-y gastric bypass with difficulty advancing diet. Common foods that are not well tolerated s/p gastric bypass include those that have a dense, doughy texture, dry meats, and simple carbohydrates. We discussed foods that may be better tolerated, and she was given a sample 2-3 month post-op meal plan to reference when choosing meals. If she continues to experience difficulty, may consider diagnostic testing to evaluate for a structural cause such as stricture. She should continue to aim for 75-90 grams of protein each day. 3-6 small meals are recommended; smaller, more frequent meals are often necessary at this stage. Bringing a water bottle to therapy sessions and drinking small amounts throughout the day may help her to meet her hydration needs and keep meals and beverages separate. Lifelong vitamin supplementation is recommended s/p julianna-en -y gastric bypass and should include a multivitamin, 350-500 mcg. vitamin B12, 3000 units vitamin D, at least 12 (up to 100) mg vitamin B1. [facility] will continue to follow this patient while she is admitted to help facilitate diet progression and provide bariatric nutrition education. Counseling and/or Coordination of Care: Time was a significant factor with this patient encounter. Total time spent with patient was 75 minutes
[2018-07-27] MEDS: Calcium Carbonate CHEW TAB* 500 MG (TUMS) PO SCH ×3 (10:57→20:58)
[2018-07-27] MEDS: Ferrous Sulfate LIQ* 300 MG/5 ML UDC PO SCH (10:58)
[2018-07-27] MEDS: Metoprolol Tartrate TAB* 25 MG PO SCH ×2 (10:58→20:57)
[2018-07-27] MEDS: Amiodarone TAB* 200 MG PO SCH (10:58)
[2018-07-27] MEDS: Docusate CAP* 100 MG PO SCH ×2 (10:58→20:58)
[2018-07-27] MEDS: Moisturizing CREAM* 120 GM JAR TOPICAL SCH ×2 (10:58→20:58)
[2018-07-27] MEDS: Multivitamins ADULT w/MIN LIQ* 15 ML UDC PO SCH (10:58)
[2018-07-27] MEDS: Enoxaparin(*) 40 MG/0.4 ML SYR SUBCUT SCH (17:51)
--- NOTE | 2018-07-27 18:08 | PN ---
Progress Note Date of Service: 07/27/18 Note: CARY DUMONT was visited. Therapy notes read and reviewed. She was discussed in interdisciplinary team rounds. She is moving much better although she does get fatigued. She is having trouble with nausea and PO Current Medications: Active Medications Generic Name Dose Route Start Last Admin Trade Name Freq PRN Reason Stop Dose Admin Acetaminophen 650 mg 07/13/18 17:45 07/13/18 20:20 Tylenol Tab* PO 650 mg Q6H PRN Administration FEVER/PAIN Amiodarone HCl 100 mg 07/14/18 09:00 07/27/18 10:58 Cordarone Tab* PO 100 mg DAILY MARCELA Administration Bisacodyl 10 mg 07/15/18 11:26 07/15/18 17:46 Dulcolax Supp* IA 10 mg DAILY PRN Administration CONSTIPATION Calcium Carbonate 500 mg 07/22/18 21:00 07/27/18 14:35 Tums* PO Not Given TID MARCELA Clonidine HCl 0.1 mg 07/18/18 09:00 07/25/18 11:10 Gdakaazi-[id number]-[id number] 0.1 Mg Patch* TRANSDERM 0.1 mg Q7D MARCELA Administration Docusate Sodium 100 mg 07/15/18 21:00 07/27/18 10:58 Colace Cap* PO 100 mg BID MARCELA Administration Enoxaparin Sodium 40 mg 07/13/18 18:00 07/27/18 17:51 Lovenox(*) SUBCUT 40 mg Q24H MARCELA Administration Ferrous Sulfate 300 mg 07/23/18 09:00 07/27/18 10:58 Feosol Liq* PO Not Given DAILY MARCELA Melatonin 3 mg 07/22/18 20:26 07/24/18 21:04 Melatonin PO 3 mg BEDTIME PRN Administration SLEEP Protocol Methocarbamol 750 mg 07/16/18 12:46 07/17/18 11:01 Robaxin Tab* PO 750 mg TID PRN Administration SPASMS Metoprolol Tartrate 25 mg 07/13/18 21:00 07/27/18 10:58 Lopressor Tab* PO 25 mg BID MARCELA Administration Multi-Ingredient Ointment 1 applic 07/20/18 21:00 07/27/18 10:58 Hydrocerin* TOPICAL 1 applic BID MARCELA Administration Multivitamins 15 ml 07/23/18 09:00 07/27/18 10:58 Theragran W/Minerals Liq* PO Not Given DAILY MARCELA Oxycodone HCl 5 mg 07/13/18 17:53 07/27/18 04:14 Roxycodone Tab* PO 5 mg Q6H PRN Administration PAIN - MODERATE TO SEVERE Polyethylene Glycol/Electrolytes 17 gm 07/15/18 10:50 Miralax* PO DAILY PRN CONSTIPATION Prochlorperazine 10 mg 07/13/18 17:55 07/24/18 16:28 Compazine Tab* PO 10 mg Q8HR PRN Administration NAUSEA Prochlorperazine 10 mg 07/21/18 07:00 07/27/18 06:34 Compazine Tab* PO 10 mg 0700 MARCELA Administration Senna 2 tab 07/16/18 21:00 07/26/18 21:12 Senokot Tab* PO Not Given BEDTIME MARCELA Vital Signs: Vital Signs Temp Pulse Resp BP Pulse Ox 97.5 F 75 22 122/76 99 07/27/18 16:00 07/27/18 16:00 07/27/18 16:00 07/27/18 16:00 07/27/18 16:00 Lab Results: Laboratory Results - last 24 hr 07/24/18 05:52 Whole Bld Vitamin B1 139 Exam: GENERAL: in no distress LUNGS: clear bilaterally HEART: reg rhythm ABDOMEN: Soft. Midline wound. GTube EXTREMITIES: decreased tone in LEs NEUROLOGIC: 4/5 strength in LEs. 4/5 LUE, 4+/5 RUE SKIN: midline incision open, open area on buttock Assessment/Plan: 1. Critical Care Myopathy: PT/OT 2. S/P Tila-en-Y Gastric Bypass, Peforation, Multiple Abcesses: Tolerating PO. 3. Polymorphic VT Arrest: Life Vest, Amiodarone, Lopressor. Appreciate Dr. Santoyo's follow up. Will need cardiac cath after d/c. Will see if d/c amio 4. Malnutrition: Promote TF at 90 ml/hr through GTube. 6P-4A. H2O flush. PO. Calorie counts. Liquid vitamins 5. Pressure Ulcer: Local care, barrier cream, nutritional support 6. Advanced Directives: Full code 7. DVT Prophylaxis: Lovenox 07/27/18 18:08
[2018-07-27] MEDS: Senna TAB PO SCH (20:58)
[2018-07-28] MEDS: oxyCODONE TAB* 5 MG TAB PO PRN ×2 (03:06→18:34)
[2018-07-28] MEDS: Prochlorperazine TAB* 10 MG PO SCH (06:32)
[2018-07-28 07:12] LABS: ABS Basophils 0.1 10^3/ul (0-0.2); ABS Eosinophils 0.2 10^3/ul (0-0.6); ABS Lymphocytes 2.3 10^3/ul (1.0-4.8); ABS Monocytes 0.8 10^3/ul (0-0.8); ABS Neutrophils 4.3 10^3/ul (1.5-7.7); ABS Nucleated RBC 0 10^3/ul; Eosinophil % 2.5 % (0-6); Hematocrit 26 % (35-47); Hemoglobin 8.8 g/dl (12.0-16.0); Lymphocyte % 30.1 % (25-47); Mean Corpuscular HGB Conc 34 g/dl (31-36); Mean Corpuscular Hemoglobin 31 pg (27-31); Mean Corpuscular Volume 91 fL (80-97); Mean Platelet Volume 6.6 fL (7.4-10.4); Nucleated Red Blood Cells % 0; Platelet Count 429 10^3/ul (150-450); Red Cell Distribution Width 17 % (10.5-15); White Blood Count 7.7 10^3/ul (3.5-10.8)
[2018-07-28 07:31] LABS: EGFR Non-African American 125.9 (>60)
[2018-07-28] MEDS: Moisturizing CREAM* 120 GM JAR TOPICAL SCH ×2 (09:30→21:45)
[2018-07-28] MEDS: Amiodarone TAB* 200 MG PO SCH (10:54)
[2018-07-28] MEDS: Docusate CAP* 100 MG PO SCH ×2 (10:54→21:44)
[2018-07-28] MEDS: Metoprolol Tartrate TAB* 25 MG PO SCH ×2 (10:54→21:45)
[2018-07-28] MEDS: Multivitamins ADULT w/MIN LIQ* 15 ML UDC PO SCH (10:55)
[2018-07-28] MEDS: Ferrous Sulfate LIQ* 300 MG/5 ML UDC PO SCH (10:55)
[2018-07-28] MEDS: Calcium Carbonate CHEW TAB* 500 MG (TUMS) PO SCH ×3 (10:55→21:45)
--- NOTE | 2018-07-28 12:33 | PN ---
Progress Note Date of Service: 07/28/18 Note: CARY DUMONT was visited. Nursing and therapy notes read and reviewed. No new issues overnight. Tolerated cheerios and banana this morning. Nauseated after therapy now with little appetite. No chest pain, shortness of breath or abdominal pain. Current Medications: Active Medications Generic Name Dose Route Start Last Admin Trade Name Freq PRN Reason Stop Dose Admin Acetaminophen 650 mg 07/13/18 17:45 07/13/18 20:20 Tylenol Tab* PO 650 mg Q6H PRN Administration FEVER/PAIN Amiodarone HCl 100 mg 07/14/18 09:00 07/28/18 10:54 Cordarone Tab* PO 100 mg DAILY MARCELA Administration Bisacodyl 10 mg 07/15/18 11:26 07/15/18 17:46 Dulcolax Supp* PA 10 mg DAILY PRN Administration CONSTIPATION Calcium Carbonate 500 mg 07/22/18 21:00 07/28/18 10:55 Tums* PO Not Given TID MARCELA Clonidine HCl 0.1 mg 07/18/18 09:00 07/25/18 11:10 Rbcummwc-[id number] 0.1 Mg Patch* TRANSDERM 0.1 mg Q7D MARCELA Administration Docusate Sodium 100 mg 07/15/18 21:00 07/28/18 10:54 Colace Cap* PO 100 mg BID MARCELA Administration Enoxaparin Sodium 40 mg 07/13/18 18:00 07/27/18 17:51 Lovenox(*) SUBCUT 40 mg Q24H MARCELA Administration Ferrous Sulfate 300 mg 07/23/18 09:00 07/28/18 10:55 Feosol Liq* PO 300 mg DAILY MARCELA Administration Melatonin 3 mg 07/22/18 20:26 07/24/18 21:04 Melatonin PO 3 mg BEDTIME PRN Administration SLEEP Protocol Methocarbamol 750 mg 07/16/18 12:46 07/17/18 11:01 Robaxin Tab* PO 750 mg TID PRN Administration SPASMS Metoprolol Tartrate 25 mg 07/13/18 21:00 07/28/18 10:54 Lopressor Tab* PO 25 mg BID MARCELA Administration Multi-Ingredient Ointment 1 applic 07/20/18 21:00 07/27/18 20:58 Hydrocerin* TOPICAL 1 applic BID MARCELA Administration Multivitamins 15 ml 07/23/18 09:00 07/28/18 10:55 Theragran W/Minerals Liq* PO 15 ml DAILY MARCELA Administration Oxycodone HCl 5 mg 07/13/18 17:53 07/28/18 03:06 Roxycodone Tab* PO 5 mg Q6H PRN Administration PAIN - MODERATE TO SEVERE Polyethylene Glycol/Electrolytes 17 gm 07/15/18 10:50 Miralax* PO DAILY PRN CONSTIPATION Prochlorperazine 10 mg 07/13/18 17:55 07/24/18 16:28 Compazine Tab* PO 10 mg Q8HR PRN Administration NAUSEA Prochlorperazine 10 mg 07/21/18 07:00 07/28/18 06:32 Compazine Tab* PO 10 mg 0700 MARCELA Administration Senna 2 tab 07/16/18 21:00 07/27/18 20:58 Senokot Tab* PO Not Given BEDTIME MARCELA Vital Signs: Vital Signs Temp Pulse Resp BP Pulse Ox 97.7 F 87 16 118/74 94 07/28/18 06:31 07/28/18 06:31 07/28/18 06:31 07/28/18 06:31 07/28/18 06:31 Lab Results: Laboratory Results - last 24 hr 07/28/18 07/28/18 06:48 06:48 WBC 7.7 RBC 2.80 L Hgb 8.8 L Hct 26 L MCV 91 MCH 31 MCHC 34 RDW 17 H Plt Count 429 MPV 6.6 L Neut % (Auto) 56.5 Lymph % (Auto) 30.1 [place] % (Auto) 10.2 H Eos % (Auto) 2.5 Baso % (Auto) 0.7 Absolute Neuts (auto) 4.3 Absolute Lymphs (auto) 2.3 Absolute Monos (auto) 0.8 Absolute Eos (auto) 0.2 Absolute Basos (auto) 0.1 Absolute Nucleated RBC 0 Nucleated RBC % 0 Sodium 136 Potassium 4.0 Chloride 101 Carbon Dioxide 26 Anion Gap 9 BUN 19 Creatinine 0.52 Est GFR ( Amer) 152.3 Est GFR (Non-Af Amer) 125.9 BUN/Creatinine Ratio 36.5 H Glucose 103 H Calcium 9.9 Total Bilirubin 0.40 AST 15 ALT 16 Alkaline Phosphatase 195 H Total Protein 7.0 Albumin 3.6 Globulin 3.4 Albumin/Globulin Ratio 1.1 Exam: GENERAL: no acute distress. alert and appropriate. LUNGS: clear to auscultation bilaterally HEART: regular rate and rhythm ABDOMEN: + bowel sounds. Soft. Midline wound. GTube. non-tender. non-distended. EXTREMITIES: No edema. NEUROLOGIC: 4/5 strength BUE and BLE. SKIN: midline incision dressed, open area on buttock Assessment/Plan: 1. Critical Care Myopathy: PT/OT. 2. S/P Tila-en-Y Gastric Bypass, Peforation, Multiple Abcesses: Tolerating PO. 3. Polymorphic VT Arrest: Life Vest, Amiodarone, Lopressor. Appreciate Dr. Santoyo's follow up. Will need cardiac cath after d/c. Will see if d/c amio 4. Malnutrition: Promote TF at 90 ml/hr through GTube. 6P-4A. H2O flush. PO. Calorie counts. Liquid vitamins 5. Pressure Ulcer: Local care, barrier cream, nutritional support 6. Advanced Directives: Full code 7. DVT Prophylaxis: Lovenox 8. Work: Completed disability claim form with potential RTW date of 10/14/18. 07/28/18 12:28
--- NOTE | 2018-07-28 14:17 | PMRUTEAM ---
PMRU: Team Meeting Current Status: Nursing: Current Status Skin Deviations [upper gluteal Wound cleft] Skin Deviations [right of Incision umbilicus] Skin Deviations [Left Abdomen] Other Skin Deviations [Medial Incision Abdomen] Skin Deviations [Bilateral Other Plantar Foot] Skin Deviations [Right Pressure Ulcer Buttocks] Skin Deviations [Anterior Neck Other ] Skin Deviation Description [ Reddened, shearing visible. OFELIA Boyd applied upper gluteal cleft] dressing. See nurses note Skin Deviation Description [ G-tube patent right of umbilicus] Skin Deviation Description [ G tube Left Abdomen] Skin Deviation Description [ drsgs in place Medial Abdomen] Skin Deviation Description [ dry scaly skin; lotion applied Bilateral Plantar Foot] Skin Deviation Description [ Open area, surrounded by red blanchable skin Right Buttocks] Skin Deviation Description [ trach site healing well Anterior Neck] Physical Therapy: Current Status Bed Mobility Assistance Supervision Transfer Moblility Assistance Supervision,Contact Guard Assist Transfer/Bed Mobility Rolling Walker Recommended Devices Ambulation Assistance Contact Guard Assist Ambulation Assistive Devices Rolling Walker Number of Feet Patient 100, 120 Ambulated Stairs Assistance Not Tested Curb Not Tested Manual Wheelchair Control/ Bilateral UE's Technique Wheelchair Propulsion Ability Independent,Standby Assistance Wheelchair Distance (ft) 200 Objective Comments aly demonstrates good abiltiy in W/c mobility with BUE on flat surfaces. Occupational Therapy: Current Status Upper Body Dressing Supervision Lower Body Dressing Max Asst Bathing Min Assist Toileting Supervision Toilet Transfer Contact Guard Assist Shower Transfer Contact Guard Assist Eating Total Assist Eating Progress feeding tube Rec Therapy: Current Status Summary of Assessment and RT assessment complete and pt. is aware of RT Clinical Impression services. Pt. has been cooperative and engaged during visits. Provided pt. with word search puzzles, pt. also visits with family in the afternoons. Treatment Goals Pt. will engage in leisure activities while on the unit. Treatment Plan Provide RT services and encourage involvement. Social Work: Current Status Discharge Plan return home with home care svs and family support Potential for Family Training pt's father is attentive and involved Anticipated Discharge Home Destination Discharge With home care svs and family support Nutrition: Current Status Monitoring Discussed pt at PMRU meeting today; visited later this afternoon. Pt had just finished a small bowl of vegetable soup with 3 servings of saltines stirred in, and stated she was tolerating that well so far. Pt still with education needs (i.e. mentioned fish sticks as a source of protein). RDN from [facility] plans to visit again tomorrow (07/28), so anticipate pt will begin to make progress with making appropriate choices and understanding the bariatric diet guidelines, as these concepts are reinforced. Per discussion at [facility] meeting, will initiate another 3-day dago ct to start tomorrow, so will report results beginning 07/29. Pack of [place] muffins and jar of peanut butter procured by to provide pt another snack option; available in unit pantry as needed. Per discussion at [facility] mtg, pt MAY have SMALL amounts of bread/ bread products as tolerated. Goals: Physical Therapy: Initial Goals Bed Mobility Assistance Independent Transfer Mobility Assistance Independent Transfer/Bed Mobility Rolling Walker Recommended Devices Ambulation Independent Ambulation Recommended Devices Rolling Walker Ambulation Distance 150 Stairs Assistance Independent Stair Recommended Devices Two Rails Number of Stairs 10 Occupational Therapy: Initial Goals Goals to be Completed in (Days 3-4 weeks ) Upper Body Bathing Routine Independent Lower Body Bathing Routine Supervision/Set Up Upper Body Dressing Routine Independent Lower Body Dressing Routine Modified Independent with Toilet Hygeine and Clothing Modified Independent with Management Routine Toilet Transfer Routine Modified Independent with Tub Transfer Routine Supervision/Set Up Functional Transfers for ADL Modified Independent with Grooming Routine Independent Feeding Routine Independent Light Housekeeping Tasks Minimal Contact Assist Nutrition: Goals Intervention Goals 1. Adequate PO intake (and enteral nutrition support) to maintain lean body mass and hydration while supporting appropriate wt loss s/p gastric bypass surgery - Intake will ultimately improve to meet 100% estimated calorie/protein needs w/o need for enteral nutrition support 2. High protein meals/snacks as accepted by pt 3. Electrolytes will be maintained WNL w/ adequate intake 4. Intake will support wound healing w/o additional pressure related skin breakdown 5. Achieve bowel regularity w/o constipation or diarrhea Social Work: Goals Discharge Plan return home with home care svs and family support Potential for Family Training pt's father is attentive and involved Anticipated Discharge Home Destination Discharge With home care svs and family support Care Plan: Care Plan ADL's - Improve/Maintain Start: 07/13/18 23:45 Freq: DAILY Status: Active Target: Protocol: Activity Type Activity Date Activity User E-Sign Co-Sign Detail Recorded Client Recorded Date Recorded By Document 07/23/18 14:40 [id number] [email or web address] 07/23/18 14:40 [id number] 07/23/18 14:40 PMRU Outcome: ADL's/ADL Transfers Orders/Interventions Occupational Therapy Evaluation & Treatment Device Yes Patient to receive OT 5x/wk for 60-120 Therex min/day Self Care Management Group Therapy Neuromuscular ReEducation UE/LE ADL's with Assist Yes ADL Transfers with Assist Yes Toileting: Transfers,Clothing Management Yes ,Hygeine w/Assist Light Kitchen/Laundry w/Assist Yes Progression Toward Outcome/Goals Progressing Outcome/Goals Met Pt demonstrates increased independence with morning ADL routine. No c/o nausea throughout entire tx session. Continues to require increased number of rest breaks d/t SOB and fatigue. Cardiovascular- Improve/Maintain Start: 07/13/18 23:45 Freq: QSHIFT Status: Active Target: Protocol: Activity Type Activity Date Activity User E-Sign Co-Sign Detail Recorded Client Recorded Date Recorded By Document 07/28/18 00:45 [id number] [id number] 07/28/18 00:45 [id number] 07/28/18 00:45 PMRU Outcome: Cardiovascular Vital Signs q Shift for 48hrs Then BID Yes Daily Weight Ordered No Current Cardiovascular Outcome/Goal Maintain/ Achieve Baseline HR, BP , Perfusion Improve HR Within Prescribed Parameters Free of Abnormal Cardiac Symptoms Improve/ Maintain Cardiac Output Progression Toward Outcome/Goal Progressing Communication-Improve/Maintain Start: 07/13/18 23:45 Freq: DAILY Status: Active Target: Protocol: Activity Type Activity Date Activity User E-Sign Co-Sign Detail Recorded Client Recorded Date Recorded By Document 07/28/18 00:46 [id number] 07/28/18 00:46 [id number] 07/28/18 00:46 PMRU Outcome: Communication/Cognitive Status Outcome/Goals Makes Needs Known Effectively Progression Toward Outcomes/Goals Progressing DVT Prophylaxis- Improve/Maintain Start: 07/13/18 23:45 Freq: QSHIFT Status: Active Target: Protocol: Activity Type Activity Date Activity User E-Sign Co-Sign Detail Recorded Client Recorded Date Recorded By Document 07/28/18 00:45 [id number] 07/28/18 00:45 [id number] 07/28/18 00:45 PMRU Outcome: DVT Prophylaxis Outcome/Goals Remains Free of DVT Complies with DVT Prophylaxis /Treatment Progression Toward Outcome/Goals Progressing Discharge Planning - Improve/Maintain Start: 07/13/18 23:45 Freq: DAILY Status: Active Target: Protocol: Activity Type Activity Date Activity User E-Sign Co-Sign Detail Recorded Client Recorded Date Recorded By Document 07/28/18 00:46 [id number] 07/28/18 00:46 [id number] 07/28/18 00:46 PMRU Outcome: Discharge Planning Update Patient Family No Outcome/Goals Demonstrates Understanding of Discharge Plan Progression Toward Outcome/Goals Progressing Education-Improve/Maintain Start: 07/13/18 23:45 Freq: QSHIFT Status: Active Target: Protocol: Activity Type Activity Date Activity User E-Sign Co-Sign Detail Recorded Client Recorded Date Recorded By Document 07/28/18 00:45 [id number] [id number] 07/28/18 00:45 [id number] 07/28/18 00:45 PMRU Outcome: Education Outcome/Goals Encourage Questions Progression Toward Outcome/Goals Progressing Medication Administration Start: 07/13/18 23:45 Freq: QSHIFT Status: Active Target: Protocol: Activity Type Activity Date Activity User E-Sign Co-Sign Detail Recorded Client Recorded Date Recorded By Document 07/28/18 00:45 [id number] [id number] 07/28/18 00:45 [id number] 07/28/18 00:45 PMRU Outcome: Medication Administration Assess Patient Knowledge/Teach Med Yes Education for all Meds Outcome/Goals Patient Independent with Medication Administration at Home Demonstrates Understanding Progression Towards Outcome/Goals Progressing Is Patient Going Home on Lovenox? No Mobility- Improve/Maintain Start: 07/13/18 23:45 Freq: DAILY Status: Active Target: Protocol: Activity Type Activity Date Activity User E-Sign Co-Sign Detail Recorded Client Recorded Date Recorded By Document 07/14/18 18:00 [id number] [email or web address] 07/16/18 10:16 [id number] 07/14/18 18:00 PMRU Outcome: Mobility Physical Therapy Evaluation and Yes Treatment Activity OOB with Assistance Yes WBAT Yes Device Yes Assistance Yes Patient to be seen 5x/wk for 60-120 min/ Therex day for: Mobility Training Gait Training W/C Mobility Balance Other Outcome/Goals Maintain/ Achieve Baseline Mobility Status Improve Mobility Status Demonstrates Proper Use of Assistive Devices Free from Complications of Immobility Bed Mobility Yes: independent Transfers Yes: independent with rolling walker Gait x ft Yes: independent with rolling alker to 150' Up/Down Stairs Yes: independent up/ down 1 flight with 2 rails Neurological- Improve/Maintain Start: 07/13/18 23:45 Freq: QSHIFT Status: Active Target: Protocol: Activity Type Activity Date Activity User E-Sign Co-Sign Detail Recorded Client Recorded Date Recorded By Document 07/28/18 00:45 [id number] 07/28/18 00:45 [id number] 07/28/18 00:45 PMRU Outcome: Neurological Weakness/Aphasia Weakness Outcome/Goals Maintain/ Achieve Baseline Neurological Status Improve Neurological Status Maintain/ Improve Strength/ROM Progression Toward Outcome/Goals Progressing Nutrition/Swallowing- Improve/Maintain Start: 07/13/18 23:45 Freq: QSHIFT Status: Active Target: Protocol: Activity Type Activity Date Activity User E-Sign Co-Sign Detail Recorded Client Recorded Date Recorded By Document 07/28/18 00:45 [id number] 07/28/18 00:45 [id number] 07/28/18 00:45 PMRU Outcome: Nutrition/Swallowing Outcome/Goals Maintain/ Improve Nutritional Status Progression Toward Outcome/Goals Not Progressing Outcome/Goals Met Comment tube feed in progress Pain/Comfort- Improve/Maintain Start: 07/13/18 23:45 Freq: QSHIFT Status: Active Target: Protocol: Activity Type Activity Date Activity User E-Sign Co-Sign Detail Recorded Client Recorded Date Recorded By Document 07/28/18 00:45 [id number] [email or web address] 07/28/18 00:45 [id number] 07/28/18 00:45 PMRU Outcome: Pain/Comfort Outcome/Goals Demonstrates Knowledge and Use of Available Comfort Measures Achieves Acceptable Comfort/Pain Level as Determined by Patient/Condit Maintain Comfort Level Allowing Patient to Fully Participate in Rehab Progression Toward Outcome/Goals Progressing Outcome/Goals Met Comment pt resting at this time Respiratory - Improve/Maintain Start: 07/13/18 23:45 Freq: QSHIFT Status: Active Target: Protocol: Activity Type Activity Date Activity User E-Sign Co-Sign Detail Recorded Client Recorded Date Recorded By Document 07/28/18 00:45 [id number] 07/28/18 00:45 [id number] 07/28/18 00:45 PMRU Outcome: Respiratory Does Patient Have a Trach No Outcome/Goals Maintain/ Improve Activity Tolerance Prevent Pneumonia/ Atelectasis Remain Aspiration Free Progression Toward Outcome/Goals Progressing Safety- Improve/Maintain Start: 07/13/18 23:45 Freq: QSHIFT Status: Active Target: Protocol: Activity Type Activity Date Activity User E-Sign Co-Sign Detail Recorded Client Recorded Date Recorded By Document 07/28/18 00:45 [id number] 07/28/18 00:45 [id number] 07/28/18 00:45 PMRU Outcome: Safety Outcome/Goals Remain Free of Injury or Harm Cooperates with Safety Measures for Least Restrictive Environment Prevent Falls/ Injury Progression Toward Outcome/Goals Progressing Skin- Improve/Maintain Start: 07/13/18 23:45 Freq: QSHIFT Status: Active Target: Protocol: Activity Type Activity Date Activity User E-Sign Co-Sign Detail Recorded Client Recorded Date Recorded By Document 07/28/18 00:45 [id number] 07/28/18 00:45 [id number] 07/28/18 00:45 PMRU Outcome: Skin Skin Risk Level High Skin Orders Dressing Change Multipodus Boot Heels Off Bed Turn/Position q2hr While in Bed Outcome/Goals Maintain/ Improve Skin Intergrity Maintain/ Improve Wound Status Surgical Incisions Healing Progression Toward Outcome/Goals Progressing Medicine Note: Length of Stay: 2 1/2 weeks Anticipated Discharge Destination: Home Tentative Discharge Date: August 13 2018 Discharged to: Home
[2018-07-28] MEDS: Enoxaparin(*) 40 MG/0.4 ML SYR SUBCUT SCH (18:19)
[2018-07-28] MEDS: Senna TAB PO SCH (21:44)
[2018-07-29] MEDS: oxyCODONE TAB* 5 MG TAB PO PRN ×2 (01:21→18:37)
[2018-07-29] MEDS: Prochlorperazine TAB* 10 MG PO SCH (06:28)
--- NOTE | 2018-07-29 08:40 | PN ---
Progress Note Date of Service: 07/29/18 Note: CARY DUMONT was visited. Nursing and therapy notes read and reviewed. No new concerns overnight. No chest pain, shortness of breath or abdominal pain. Current Medications: Active Medications Generic Name Dose Route Start Last Admin Trade Name Freq PRN Reason Stop Dose Admin Acetaminophen 650 mg 07/13/18 17:45 07/13/18 20:20 Tylenol Tab* PO 650 mg Q6H PRN Administration FEVER/PAIN Amiodarone HCl 100 mg 07/14/18 09:00 07/28/18 10:54 Cordarone Tab* PO 100 mg DAILY MARCELA Administration Bisacodyl 10 mg 07/15/18 11:26 07/15/18 17:46 Dulcolax Supp* [place] 10 mg DAILY PRN Administration CONSTIPATION Calcium Carbonate 500 mg 07/22/18 21:00 07/28/18 21:45 Tums* PO Not Given TID MARCELA Clonidine HCl 0.1 mg 07/18/18 09:00 07/25/18 11:10 Rpngipci-Tue-4 0.1 Mg Patch* TRANSDERM 0.1 mg Q7D MARCELA Administration Docusate Sodium 100 mg 07/15/18 21:00 07/28/18 21:44 Colace Cap* PO 100 mg BID MARCELA Administration Enoxaparin Sodium 40 mg 07/13/18 18:00 07/28/18 18:19 Lovenox(*) SUBCUT 40 mg Q24H MARCELA Administration Ferrous Sulfate 300 mg 07/23/18 09:00 07/28/18 10:55 Feosol Liq* PO 300 mg DAILY MARCELA Administration Melatonin 3 mg 07/22/18 20:26 07/24/18 21:04 Melatonin PO 3 mg BEDTIME PRN Administration SLEEP Protocol Methocarbamol 750 mg 07/16/18 12:46 07/17/18 11:01 Robaxin Tab* PO 750 mg TID PRN Administration SPASMS Metoprolol Tartrate 25 mg 07/13/18 21:00 07/28/18 21:45 Lopressor Tab* PO 25 mg BID MARCELA Administration Multi-Ingredient Ointment 1 applic 07/20/18 21:00 07/28/18 21:45 Hydrocerin* TOPICAL 1 applic BID MARCELA Administration Multivitamins 15 ml 07/23/18 09:00 07/28/18 10:55 Theragran W/Minerals Liq* PO 15 ml DAILY MARCELA Administration Oxycodone HCl 5 mg 07/13/18 17:53 07/29/18 01:21 Roxycodone Tab* PO 5 mg Q6H PRN Administration PAIN - MODERATE TO SEVERE Polyethylene Glycol/Electrolytes 17 gm 07/15/18 10:50 Miralax* PO DAILY PRN CONSTIPATION Prochlorperazine 10 mg 07/13/18 17:55 07/24/18 16:28 Compazine Tab* PO 10 mg Q8HR PRN Administration NAUSEA Prochlorperazine 10 mg 07/21/18 07:00 07/29/18 06:28 Compazine Tab* PO 10 mg 0700 MARCELA Administration Senna 2 tab 07/16/18 21:00 07/28/18 21:44 Senokot Tab* PO 2 tab BEDTIME MARCELA Administration Vital Signs: Vital Signs Temp Pulse Resp BP Pulse Ox 97.1 F 82 20 112/77 94 07/29/18 06:18 07/29/18 06:18 07/29/18 06:18 07/29/18 06:18 07/29/18 06:18 Exam: GENERAL: no acute distress. alert and appropriate. LUNGS: clear to auscultation bilaterally HEART: regular rate and rhythm ABDOMEN: + bowel sounds. Soft. Midline wound. GTube. non-tender. non-distended. EXTREMITIES: No edema. NEUROLOGIC: 4/5 strength BUE and BLE. SKIN: midline incision dressed and I reviewed picture from wound team 07/28 showing good granulation. open area on right buttock with mepilex. Assessment/Plan: 1. Critical Care Myopathy: PT/OT. 2. S/P Tila-en-Y Gastric Bypass, Peforation, Multiple Abcesses: Tolerating PO. 3. Polymorphic VT Arrest: Life Vest, Amiodarone, Lopressor. Appreciate Dr. Santoyo's follow up. Will need cardiac cath after d/c. Question if can d/c amio 4. Malnutrition: Promote TF at 90 ml/hr through GTube. 6P-4A. H2O flush. PO. Calorie counts. Liquid vitamins 5. Pressure Ulcer: Abd wound with puracol with telfa. Right buttock with optifoam/mepilex. nutritional support, wound rounds weekly 6. Advanced Directives: Full code 7. DVT Prophylaxis: Lovenox 8. Work: Completed disability claim form with potential RTW date of 10/14/18. 07/29/18 08:41
[2018-07-29] MEDS: Amiodarone TAB* 200 MG PO SCH (10:51)
[2018-07-29] MEDS: Ferrous Sulfate LIQ* 300 MG/5 ML UDC PO SCH (10:52)
[2018-07-29] MEDS: Docusate CAP* 100 MG PO SCH ×2 (10:52→20:54)
[2018-07-29] MEDS: Metoprolol Tartrate TAB* 25 MG PO SCH ×2 (10:52→20:54)
[2018-07-29] MEDS: Moisturizing CREAM* 120 GM JAR TOPICAL SCH ×2 (10:53→20:54)
[2018-07-29] MEDS: Multivitamins ADULT w/MIN LIQ* 15 ML UDC PO SCH (10:53)
[2018-07-29] MEDS: Calcium Carbonate CHEW TAB* 500 MG (TUMS) PO SCH ×3 (10:54→20:57)
[2018-07-29] MEDS: Enoxaparin(*) 40 MG/0.4 ML SYR SUBCUT SCH (18:32)
[2018-07-29] MEDS: Senna TAB PO SCH (20:57)
[2018-07-30] MEDS: oxyCODONE TAB* 5 MG TAB PO PRN ×3 (04:17→23:20)
[2018-07-30] MEDS: Prochlorperazine TAB* 10 MG PO SCH (06:13)
[2018-07-30] MEDS: Moisturizing CREAM* 120 GM JAR TOPICAL SCH ×2 (08:18→21:43)
[2018-07-30] MEDS: Metoprolol Tartrate TAB* 25 MG PO SCH ×2 (09:00→21:43)
[2018-07-30] MEDS: Ferrous Sulfate LIQ* 300 MG/5 ML UDC PO SCH (09:00)
[2018-07-30] MEDS: Calcium Carbonate CHEW TAB* 500 MG (TUMS) PO SCH ×4 (09:00→21:37)
[2018-07-30] MEDS: Amiodarone TAB* 200 MG PO SCH (09:00)
[2018-07-30] MEDS: Docusate CAP* 100 MG PO SCH ×2 (09:00→21:43)
[2018-07-30] MEDS: Multivitamins ADULT w/MIN LIQ* 15 ML UDC PO SCH (09:00)
--- NOTE | 2018-07-30 10:55 | PN ---
Progress Note Date of Service: 07/30/18 Note: CARY DUMONT was visited. Nursing notes read and reviewed. No chest pain, shortness of breath or abdominal pain. Vomited breakfast this morning since she got her medications before she ate. She did eat some thanksgiving dinner last night and tolerated it well. Current Medications: Active Medications Generic Name Dose Route Start Last Admin Trade Name Freq PRN Reason Stop Dose Admin Acetaminophen 650 mg 07/13/18 17:45 07/13/18 20:20 Tylenol Tab* PO 650 mg Q6H PRN Administration FEVER/PAIN Amiodarone HCl 100 mg 07/14/18 09:00 07/30/18 09:00 Cordarone Tab* PO 100 mg DAILY MARCELA Administration Bisacodyl 10 mg 07/15/18 11:26 07/15/18 17:46 Dulcolax Supp* [place] 10 mg DAILY PRN Administration CONSTIPATION Calcium Carbonate 500 mg 07/22/18 21:00 07/30/18 09:02 Tums* PO Not Given TID MARCELA Clonidine HCl 0.1 mg 07/18/18 09:00 07/25/18 11:10 [id number]-Mzz-8 0.1 Mg Patch* TRANSDERM 0.1 mg Q7D MARCELA Administration Docusate Sodium 100 mg 07/15/18 21:00 07/30/18 09:00 Colace Cap* PO 100 mg BID MARCELA Administration Enoxaparin Sodium 40 mg 07/13/18 18:00 07/29/18 18:32 Lovenox(*) SUBCUT 40 mg Q24H MARCELA Administration Ferrous Sulfate 300 mg 07/23/18 09:00 07/30/18 09:00 Feosol Liq* PO 300 mg DAILY MARCELA Administration Melatonin 3 mg 07/22/18 20:26 07/24/18 21:04 Melatonin PO 3 mg BEDTIME PRN Administration SLEEP Protocol Methocarbamol 750 mg 07/16/18 12:46 07/17/18 11:01 Robaxin Tab* PO 750 mg TID PRN Administration SPASMS Metoprolol Tartrate 25 mg 07/13/18 21:00 07/30/18 09:00 Lopressor Tab* PO 25 mg BID MARCELA Administration Multi-Ingredient Ointment 1 applic 07/20/18 21:00 07/30/18 08:18 Hydrocerin* TOPICAL 1 applic BID MARCELA Administration Multivitamins 15 ml 07/23/18 09:00 07/30/18 09:00 Theragran W/Minerals Liq* PO 15 ml DAILY MARCELA Administration Oxycodone HCl 5 mg 07/13/18 17:53 07/30/18 04:17 Roxycodone Tab* PO 5 mg Q6H PRN Administration PAIN - MODERATE TO SEVERE Polyethylene Glycol/Electrolytes 17 gm 07/15/18 10:50 Miralax* PO DAILY PRN CONSTIPATION Prochlorperazine 10 mg 07/13/18 17:55 07/24/18 16:28 Compazine Tab* PO 10 mg Q8HR PRN Administration NAUSEA Prochlorperazine 10 mg 07/21/18 07:00 07/30/18 06:13 Compazine Tab* PO 10 mg 0700 MARCELA Administration Senna 2 tab 07/16/18 21:00 07/29/18 20:57 Senokot Tab* PO Not Given BEDTIME [facility] Vital Signs: Vital Signs Temp Pulse Resp BP Pulse Ox 97.5 F 86 18 122/73 96 07/30/18 04:21 07/30/18 04:21 07/30/18 08:00 07/30/18 04:21 07/30/18 08:00 Exam: GENERAL: no acute distress. alert and appropriate. LUNGS: clear to auscultation bilaterally HEART: regular rate and rhythm ABDOMEN: + bowel sounds. Soft. Midline wound. G-Tube. non-tender. non-distended. EXTREMITIES: No edema. NEUROLOGIC: 4/5 strength BUE and BLE. SKIN: midline incision dressed. open area on right buttock with mepilex. Assessment/Plan: 1. Critical Care Myopathy: PT/OT. 2. S/P Tila-en-Y Gastric Bypass, Peforation, Multiple Abcesses: Tolerating PO. 3. Polymorphic VT Arrest: Life Vest, Amiodarone, Lopressor. Appreciate Dr. Santoyo's follow up. Will need cardiac cath after d/c. Question if can d/c amio 4. Malnutrition: Promote TF at 90 ml/hr through GTube. 6P-4A. H2O flush. PO. Calorie counts. Liquid vitamins 5. Pressure Ulcer: Abd wound with puracol with telfa. Right buttock with optifoam/mepilex. nutritional support, wound rounds weekly 6. Advanced Directives: Full code 7. DVT Prophylaxis: Lovenox 8. Work: Completed disability claim form with potential RTW date of 10/14/18. 07/30/18 10:54
[2018-07-30] MEDS: Enoxaparin(*) 40 MG/0.4 ML SYR SUBCUT SCH (18:20)
[2018-07-30] MEDS: Senna TAB PO SCH (21:37)
[2018-07-31] MEDS: Prochlorperazine TAB* 10 MG PO SCH (06:47)
[2018-07-31] MEDS: Metoprolol Tartrate TAB* 25 MG PO SCH ×2 (09:06→21:23)
[2018-07-31] MEDS: Docusate CAP* 100 MG PO SCH ×2 (09:06→21:23)
[2018-07-31] MEDS: Amiodarone TAB* 200 MG PO SCH (09:07)
[2018-07-31] MEDS: Calcium Carbonate CHEW TAB* 500 MG (TUMS) PO SCH ×3 (09:09→21:23)
[2018-07-31] MEDS: Moisturizing CREAM* 120 GM JAR TOPICAL SCH ×2 (09:09→21:25)
--- NOTE | 2018-07-31 09:21 | PN ---
Progress Note Date of Service: 07/31/18 Note: CARY DUMONT was visited. Nursing and therapy notes read and reviewed. No chest pain, shortness of breath of abdominal pain. Ate thanksgiving again last night with no issues. Current Medications: Active Medications Generic Name Dose Route Start Last Admin Trade Name Freq PRN Reason Stop Dose Admin Acetaminophen 650 mg 07/13/18 17:45 07/13/18 20:20 Tylenol Tab* PO 650 mg Q6H PRN Administration FEVER/PAIN Amiodarone HCl 100 mg 07/14/18 09:00 07/31/18 09:07 Cordarone Tab* PO 100 mg DAILY MARCELA Administration Bisacodyl 10 mg 07/15/18 11:26 07/15/18 17:46 Dulcolax Supp* [place] 10 mg DAILY PRN Administration CONSTIPATION Calcium Carbonate 500 mg 07/22/18 21:00 07/31/18 09:09 Tums* PO Not Given TID MARCELA Clonidine HCl 0.1 mg 07/18/18 09:00 07/25/18 11:10 Qirskroc-Zli-1 0.1 Mg Patch* TRANSDERM 0.1 mg Q7D MARCELA Administration Docusate Sodium 100 mg 07/15/18 21:00 07/31/18 09:06 Colace Cap* PO 100 mg BID MARCELA Administration Enoxaparin Sodium 40 mg 07/13/18 18:00 07/30/18 18:20 Lovenox(*) SUBCUT 40 mg Q24H MARCELA Administration Ferrous Sulfate 300 mg 07/23/18 09:00 07/30/18 09:00 Feosol Liq* PO 300 mg DAILY MARCELA Administration Melatonin 3 mg 07/22/18 20:26 07/24/18 21:04 Melatonin PO 3 mg BEDTIME PRN Administration SLEEP Protocol Methocarbamol 750 mg 07/16/18 12:46 07/17/18 11:01 Robaxin Tab* PO 750 mg TID PRN Administration SPASMS Metoprolol Tartrate 25 mg 07/13/18 21:00 07/31/18 09:06 Lopressor Tab* PO 25 mg BID MARCELA Administration Multi-Ingredient Ointment 1 applic 07/20/18 21:00 07/31/18 09:09 Hydrocerin* TOPICAL 1 applic BID MARCELA Administration Multivitamins 15 ml 07/23/18 09:00 07/30/18 09:00 Theragran W/Minerals Liq* PO 15 ml DAILY MARCELA Administration Oxycodone HCl 5 mg 07/13/18 17:53 07/30/18 23:20 Roxycodone Tab* PO 5 mg Q6H PRN Administration PAIN - MODERATE TO SEVERE Polyethylene Glycol/Electrolytes 17 gm 07/15/18 10:50 07/30/18 15:54 Miralax* PO 17 gm DAILY PRN Administration CONSTIPATION Prochlorperazine 10 mg 07/13/18 17:55 07/24/18 16:28 Compazine Tab* PO 10 mg Q8HR PRN Administration NAUSEA Prochlorperazine 10 mg 07/21/18 07:00 07/31/18 06:47 Compazine Tab* PO 10 mg 0700 MARCELA Administration Senna 2 tab 07/16/18 21:00 07/30/18 21:37 Senokot Tab* PO Not Given BEDTIME MARCELA Vital Signs: Vital Signs Temp Pulse Resp BP Pulse Ox 98.3 F 84 20 118/70 97 07/31/18 06:46 07/31/18 06:46 07/31/18 06:46 07/31/18 06:46 07/31/18 06:46 Exam: GENERAL: no acute distress. alert and appropriate. LUNGS: clear to auscultation bilaterally HEART: regular rate and rhythm ABDOMEN: + bowel sounds. Soft. Midline wound. G-Tube. non-tender. non-distended. EXTREMITIES: No edema. NEUROLOGIC: 4/5 strength BUE and BLE. SKIN: midline incision dressed. open area on right buttock with mepilex. Assessment/Plan: 1. Critical Care Myopathy: PT/OT. 2. S/P Tila-en-Y Gastric Bypass, Peforation, Multiple Abcesses: Tolerating PO. 3. Polymorphic VT Arrest: Life Vest, Amiodarone, Lopressor. Appreciate Dr. Santoyo's follow up. Will need cardiac cath after d/c. Question if can d/c amio 4. Malnutrition: Promote TF at 90 ml/hr through GTube. 6P-4A. H2O flush. PO. 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 Need to continue TF for now. Liquid vitamins. 5. Pressure Ulcer: Abd wound with puracol with telfa. Right buttock with optifoam/mepilex. nutritional support, wound rounds weekly 6. Advanced Directives: Full code 7. DVT Prophylaxis: Lovenox 8. Work: Completed disability claim form with potential RTW date of 10/14/18. 07/31/18 09:16
[2018-07-31] MEDS: Multivitamins ADULT w/MIN LIQ* 15 ML UDC PO SCH (13:14)
[2018-07-31] MEDS: Ferrous Sulfate LIQ* 300 MG/5 ML UDC PO SCH (13:14)
[2018-07-31] MEDS: Enoxaparin(*) 40 MG/0.4 ML SYR SUBCUT SCH (18:16)
[2018-07-31] MEDS: oxyCODONE TAB* 5 MG TAB PO PRN (19:14)
[2018-07-31] MEDS: Senna TAB PO SCH (21:24)
[2018-08-01] MEDS: oxyCODONE TAB* 5 MG TAB PO PRN ×3 (02:27→21:05)
[2018-08-01] MEDS: Prochlorperazine TAB* 10 MG PO SCH (08:46)
--- NOTE | 2018-08-01 09:56 | PN ---
Progress Note Date of Service: 08/01/18 Note: CARY DUMONT was visited. Nursing and therapy notes read and reviewed. No chest pain, shortness of breath or abdominal pain. She did well yesterday. Plans to try a fish jacinot today. Current Medications: Active Medications Generic Name Dose Route Start Last Admin Trade Name Freq PRN Reason Stop Dose Admin Acetaminophen 650 mg 07/13/18 17:45 07/13/18 20:20 Tylenol Tab* PO 650 mg Q6H PRN Administration FEVER/PAIN Amiodarone HCl 100 mg 07/14/18 09:00 07/31/18 09:07 Cordarone Tab* PO 100 mg DAILY MARCELA Administration Bisacodyl 10 mg 07/15/18 11:26 07/15/18 17:46 Dulcolax Supp* CA 10 mg DAILY PRN Administration CONSTIPATION Calcium Carbonate 500 mg 07/22/18 21:00 07/31/18 21:23 Tums* PO Not Given TID MARCELA Clonidine HCl 0.1 mg 07/18/18 09:00 07/25/18 11:10 [id number]-[id number]-7 0.1 Mg Patch* TRANSDERM 0.1 mg Q7D MARCELA Administration Docusate Sodium 100 mg 07/15/18 21:00 07/31/18 21:23 Colace Cap* PO 100 mg BID MARCELA Administration Enoxaparin Sodium 40 mg 07/13/18 18:00 07/31/18 18:16 Lovenox(*) SUBCUT 40 mg Q24H MARCELA Administration Ferrous Sulfate 300 mg 07/23/18 09:00 07/31/18 13:14 Feosol Liq* PO Not Given DAILY MARCELA Melatonin 3 mg 07/22/18 20:26 07/24/18 21:04 Melatonin PO 3 mg BEDTIME PRN Administration SLEEP Protocol Methocarbamol 750 mg 07/16/18 12:46 07/17/18 11:01 Robaxin Tab* PO 750 mg TID PRN Administration SPASMS Metoprolol Tartrate 25 mg 07/13/18 21:00 07/31/18 21:23 Lopressor Tab* PO 25 mg BID MARCELA Administration Multi-Ingredient Ointment 1 applic 07/20/18 21:00 07/31/18 21:25 Hydrocerin* TOPICAL 1 applic BID MARCELA Administration Multivitamins 15 ml 07/23/18 09:00 07/31/18 13:14 Theragran W/Minerals Liq* PO Not Given DAILY MARCELA Oxycodone HCl 5 mg 07/13/18 17:53 08/01/18 02:27 Roxycodone Tab* PO 5 mg Q6H PRN Administration PAIN - MODERATE TO SEVERE Polyethylene Glycol/Electrolytes 17 gm 07/15/18 10:50 07/30/18 15:54 Miralax* PO 17 gm DAILY PRN Administration CONSTIPATION Prochlorperazine 10 mg 07/13/18 17:55 07/24/18 16:28 Compazine Tab* PO 10 mg Q8HR PRN Administration NAUSEA Prochlorperazine 10 mg 07/21/18 07:00 08/01/18 08:46 Compazine Tab* PO 10 mg 0700 MARCELA Administration Senna 2 tab 07/16/18 21:00 07/31/18 21:24 Senokot Tab* PO Not Given BEDTIME MARCELA Vital Signs: Vital Signs Temp Pulse Resp BP Pulse Ox 98.8 F 79 16 103/71 97 08/01/18 06:26 08/01/18 06:26 08/01/18 07:42 08/01/18 06:26 08/01/18 06:26 Exam: GENERAL: no acute distress. alert and appropriate. LUNGS: clear to auscultation bilaterally HEART: regular rate and rhythm ABDOMEN: + bowel sounds. Soft. Midline wound. G-Tube. non-tender. non-distended. EXTREMITIES: No edema. NEUROLOGIC: 4/5 strength BUE and BLE. SKIN: midline incision dressed. open area on right buttock with mepilex. Assessment/Plan: 1. Critical Care Myopathy: PT/OT. 2. S/P Tila-en-Y Gastric Bypass, Peforation, Multiple Abcesses: Tolerating PO. 3. Polymorphic VT Arrest: Life Vest, Amiodarone, Lopressor. Appreciate Dr. Santoyo's follow up. Will need cardiac cath after d/c. Question if can d/c amio 4. Malnutrition: Promote TF at 90 ml/hr through GTube. 6P-4A. H2O flush. PO. 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 Need to continue TF for now. Liquid vitamins. 5. Pressure Ulcer: Abd wound with puracol with telfa. Right buttock with optifoam/mepilex. nutritional support, wound rounds weekly 6. Advanced Directives: Full code 7. DVT Prophylaxis: Lovenox 8. Work: Completed disability claim form with potential RTW date of 10/14/18. 08/01/18 09:55
[2018-08-01] MEDS: Metoprolol Tartrate TAB* 25 MG PO SCH ×2 (10:07→21:04)
[2018-08-01] MEDS: Docusate CAP* 100 MG PO SCH ×2 (10:07→21:05)
[2018-08-01] MEDS: Amiodarone TAB* 200 MG PO SCH (10:07)
[2018-08-01] MEDS: cloNIDine 0.1 MG PATCH* 0.1 MG/24 HR 7 DAY PATCH TRANSDERM SCH (10:08)
[2018-08-01] MEDS: Calcium Carbonate CHEW TAB* 500 MG (TUMS) PO SCH ×3 (10:17→20:20)
[2018-08-01] MEDS: Ferrous Sulfate LIQ* 300 MG/5 ML UDC PO SCH (12:01)
[2018-08-01] MEDS: Multivitamins ADULT w/MIN LIQ* 15 ML UDC PO SCH (12:01)
[2018-08-01] MEDS: Moisturizing CREAM* 120 GM JAR TOPICAL SCH ×2 (12:13→20:20)
[2018-08-01] MEDS: Enoxaparin(*) 40 MG/0.4 ML SYR SUBCUT SCH (18:39)
[2018-08-01] MEDS: Senna TAB PO SCH (20:20)
[2018-08-01] MEDS: Melatonin 3 MG TAB PO PRN (21:05)
[2018-08-02] MEDS: oxyCODONE TAB* 5 MG TAB PO PRN ×2 (03:23→18:06)
[2018-08-02] MEDS: Prochlorperazine TAB* 10 MG PO SCH (06:31)
[2018-08-02] MEDS: Calcium Carbonate CHEW TAB* 500 MG (TUMS) PO SCH ×3 (09:02→22:13)
[2018-08-02] MEDS: Metoprolol Tartrate TAB* 25 MG PO SCH ×2 (10:20→22:14)
[2018-08-02] MEDS: Docusate CAP* 100 MG PO SCH ×2 (10:20→22:14)
[2018-08-02] MEDS: Amiodarone TAB* 200 MG PO SCH (10:20)
[2018-08-02] MEDS: Moisturizing CREAM* 120 GM JAR TOPICAL SCH ×2 (10:21→22:14)
[2018-08-02] MEDS: Multivitamins ADULT w/MIN LIQ* 15 ML UDC PO SCH (12:15)
[2018-08-02] MEDS: Ferrous Sulfate LIQ* 300 MG/5 ML UDC PO SCH (12:15)
[2018-08-02] MEDS: Enoxaparin(*) 40 MG/0.4 ML SYR SUBCUT SCH (18:06)
--- NOTE | 2018-08-02 18:38 | PN ---
Progress Note Date of Service: 08/02/18 Note: CARY DUMONT was visited. Therapy notes read and reviewed. Moviing better. Her PO has improved but still only about 900 calories, the rest by tube feed. Still , this is an improvement Current Medications: Active Medications Generic Name Dose Route Start Last Admin Trade Name Freq PRN Reason Stop Dose Admin Acetaminophen 650 mg 07/13/18 17:45 07/13/18 20:20 Tylenol Tab* PO 650 mg Q6H PRN Administration FEVER/PAIN Amiodarone HCl 100 mg 07/14/18 09:00 08/02/18 10:20 Cordarone Tab* PO 100 mg DAILY MARCELA Administration Bisacodyl 10 mg 07/15/18 11:26 07/15/18 17:46 Dulcolax Supp* MT 10 mg DAILY PRN Administration CONSTIPATION Calcium Carbonate 500 mg 07/22/18 21:00 08/02/18 12:23 Tums* PO Not Given TID MARCELA Clonidine HCl 0.1 mg 07/18/18 09:00 08/01/18 10:08 [id number]-[id number]-8 0.1 Mg Patch* TRANSDERM 0.1 mg Q7D MARCELA Administration Docusate Sodium 100 mg 07/15/18 21:00 08/02/18 10:20 Colace Cap* PO 100 mg BID MARCELA Administration Enoxaparin Sodium 40 mg 07/13/18 18:00 08/02/18 18:06 Lovenox(*) SUBCUT 40 mg Q24H MARCELA Administration Ferrous Sulfate 300 mg 07/23/18 09:00 08/02/18 12:15 Feosol Liq* PO 300 mg DAILY MARCELA Administration Melatonin 3 mg 07/22/18 20:26 08/01/18 21:05 Melatonin PO 3 mg BEDTIME PRN Administration SLEEP Protocol Methocarbamol 750 mg 07/16/18 12:46 07/17/18 11:01 Robaxin Tab* PO 750 mg TID PRN Administration SPASMS Metoprolol Tartrate 25 mg 07/13/18 21:00 08/02/18 10:20 Lopressor Tab* PO 25 mg BID MARCELA Administration Multi-Ingredient Ointment 1 applic 07/20/18 21:00 08/02/18 10:21 Hydrocerin* TOPICAL 1 applic BID MARCELA Administration Multivitamins 15 ml 07/23/18 09:00 08/02/18 12:15 Theragran W/Minerals Liq* PO 15 ml DAILY MARCELA Administration Oxycodone HCl 5 mg 07/13/18 17:53 08/02/18 18:06 Roxycodone Tab* PO 5 mg Q6H PRN Administration PAIN - MODERATE TO SEVERE Polyethylene Glycol/Electrolytes 17 gm 07/15/18 10:50 07/30/18 15:54 Miralax* PO 17 gm DAILY PRN Administration CONSTIPATION Prochlorperazine 10 mg 07/13/18 17:55 07/24/18 16:28 Compazine Tab* PO 10 mg Q8HR PRN Administration NAUSEA Prochlorperazine 10 mg 07/21/18 07:00 08/02/18 06:31 Compazine Tab* PO 10 mg 0700 MARCELA Administration Senna 2 tab 07/16/18 21:00 08/01/18 20:20 Senokot Tab* PO Not Given BEDTIME MARCELA Vital Signs: Vital Signs Temp Pulse Resp BP Pulse Ox 97.9 F 88 18 127/86 100 08/02/18 15:51 08/02/18 15:51 08/02/18 18:06 08/02/18 15:51 08/02/18 16:27 Exam: GENERAL: no acute distress. alert and appropriate. LUNGS: clear to auscultation bilaterally HEART: regular rate and rhythm ABDOMEN: + bowel sounds. Soft. Midline wound. G-Tube. non-tender. non-distended. EXTREMITIES: No edema. NEUROLOGIC: 4/5 strength BUE and BLE. SKIN: midline incision dressed. open area on right buttock Assessment/Plan: 1. Critical Care Myopathy: PT/OT. 2. S/P Tila-en-Y Gastric Bypass, Peforation, Multiple Abcesses: Tolerating PO. 3. Polymorphic VT Arrest: Life Vest, Amiodarone, Lopressor. Appreciate Dr. Santoyo's follow up. Will need cardiac cath after d/c. Question if can d/c amio 4. Malnutrition: Promote TF at 90 ml/hr through GTube. 6P-4A. H2O flush. PO. Need to continue TF for now. Liquid vitamins. 5. Pressure Ulcer: Abd wound with puracol with telfa. Right buttock with optifoam/mepilex. nutritional support, wound rounds weekly 6. Advanced Directives: Full code 7. DVT Prophylaxis: Lovenox 08/02/18 18:39
[2018-08-02] MEDS: Senna TAB PO SCH (22:17)
[2018-08-03] MEDS: oxyCODONE TAB* 5 MG TAB PO PRN ×3 (01:37→20:50)
[2018-08-03] MEDS: Prochlorperazine TAB* 10 MG PO SCH (07:32)
[2018-08-03] MEDS: Moisturizing CREAM* 120 GM JAR TOPICAL SCH ×2 (08:43→20:53)
[2018-08-03] MEDS: Calcium Carbonate CHEW TAB* 500 MG (TUMS) PO SCH ×3 (08:46→20:52)
[2018-08-03] MEDS: Multivitamins ADULT w/MIN LIQ* 15 ML UDC PO SCH (09:00)
[2018-08-03] MEDS: Ferrous Sulfate LIQ* 300 MG/5 ML UDC PO SCH (09:00)
[2018-08-03] MEDS: Amiodarone TAB* 200 MG PO SCH (10:00)
[2018-08-03] MEDS: Docusate CAP* 100 MG PO SCH ×2 (10:00→20:50)
[2018-08-03] MEDS: Metoprolol Tartrate TAB* 25 MG PO SCH ×2 (10:01→20:50)
--- NOTE | 2018-08-03 12:49 | PMRUTEAM ---
PMRU: Team Meeting Current Status: Nursing: Current Status Skin Deviations [upper gluteal Wound cleft] Skin Deviations [right of Incision umbilicus] Skin Deviations [Left Abdomen] Incision Skin Deviations [Medial Incision Abdomen] Skin Deviations [Bilateral Other Plantar Foot] Skin Deviations [Right Pressure Ulcer Buttocks] Skin Deviations [Anterior Neck Other ] Skin Deviation Description [ lotion applied upper gluteal cleft] Skin Deviation Description [ drsgs in place right of umbilicus] Skin Deviation Description [ G-tube patent Left Abdomen] Skin Deviation Description [ drsgs in place Medial Abdomen] Skin Deviation Description [ dry skin, lotion applied Bilateral Plantar Foot] Skin Deviation Description [ optifoam in place Right Buttocks] Skin Deviation Description [ former trach site, healed Anterior Neck] Physical Therapy: Current Status Bed Mobility Assistance Independent,Supervision Transfer Moblility Assistance Independent,Supervision Transfer/Bed Mobility Rolling Walker Recommended Devices Ambulation Assistance Independent,Supervision Ambulation Assistive Devices Rolling Walker Number of Feet Patient 90 Ambulated Stairs Assistance Supervision Stairs Recommended Devices Two Rails Number of Stairs 10 Curb Not Tested Manual Wheelchair Control/ Bilateral UE's Technique Wheelchair Propulsion Ability Standby Assistance Wheelchair Distance (ft) 200 Objective Comments step to pattern ascend/descending stairs Occupational Therapy: Current Status Upper Body Dressing Supervision Lower Body Dressing Supervision Bathing Supervision Toileting Supervision Toilet Transfer Supervision Shower Transfer Supervision Eating Total Assist Eating Progress feeding tube Rec Therapy: Current Status Summary of Assessment and RT assessment complete and pt. is aware of RT Clinical Impression services. Pt. has been cooperative and engaged during visits. Provided pt. with word search puzzles, pt. also visits with family in the afternoons. Treatment Goals Pt. will engage in leisure activities while on the unit. Treatment Plan Provide RT services and encourage involvement. Social Work: Current Status Discharge Plan return home with home care svs and family support Potential for Family Training pt's family are involved and supportive Anticipated Discharge Home Destination Discharge With home care svs and family support Nutrition: Current Status Monitoring Pt seen by dietitian from [facility] 08/02; see Nutrition Note under Notes tab. Wt 08/02: 199#; trending down as expected s/p bariatric surgery. Per d/w nutrition staff, pt no longer wants the ham and cheese slices being sent daily, but does still want the milkshake. SMALL milkshake to be sent daily starting tomorrow (4 oz vs 8 oz). Since pt making progress with PO intake, suggest reducing rate and/or duration of TF. Will continue to follow progress. Goals: Physical Therapy: Initial Goals Bed Mobility Assistance Independent Transfer Mobility Assistance Independent Transfer/Bed Mobility Rolling Walker Recommended Devices Ambulation Independent Ambulation Recommended Devices Rolling Walker Ambulation Distance 150 Stairs Assistance Independent Stair Recommended Devices Two Rails Number of Stairs 10 Occupational Therapy: Initial Goals Goals to be Completed in (Days 3-4 weeks ) Upper Body Bathing Routine Independent Lower Body Bathing Routine Supervision/Set Up Upper Body Dressing Routine Independent Lower Body Dressing Routine Modified Independent with Toilet Hygeine and Clothing Modified Independent with Management Routine Toilet Transfer Routine Modified Independent with Tub Transfer Routine Supervision/Set Up Functional Transfers for ADL Modified Independent with Grooming Routine Independent Feeding Routine Independent Light Housekeeping Tasks Minimal Contact Assist Nutrition: Goals Intervention Goals 1. Adequate po intake (and enteral nutrition support) to maintain lean body mass and hydration while supporting appropriate wt loss s/p gastric bypass surgery - Intake will ultimately improve to meet 100% estimated calorie/protein needs w/o need for enteral nutrition support 2. High protein meals/snacks as accepted by pt 3. Electrolytes will be maintained WNL w/ adequate intake 4. Intake will support wound healing w/o additional pressure related skin breakdown 5. Achieve bowel regularity w/o constipation or diarrhea Social Work: Goals Discharge Plan return home with home care svs and family support Potential for Family Training pt's family are involved and supportive Anticipated Discharge Home Destination Discharge With home care svs and family support Care Plan: Care Plan ADL's - Improve/Maintain Start: 07/13/18 23:45 Freq: DAILY Status: Active Target: Protocol: Activity Type Activity Date Activity User E-Sign Co-Sign Detail Recorded Client Recorded Date Recorded By Document 08/03/18 10:37 [id number] [id number] 08/03/18 10:37 [id number] 08/03/18 10:37 PMRU Outcome: ADL's/ADL Transfers Orders/Interventions Occupational Therapy Evaluation & Treatment Device Yes Patient to receive OT 5x/wk for 60-120 Therex min/day Self Care Management Group Therapy Neuromuscular ReEducation UE/LE ADL's with Assist Yes ADL Transfers with Assist Yes Toileting: Transfers,Clothing Management Yes ,Hygeine w/Assist Light Kitchen/Laundry w/Assist Yes Progression Toward Outcome/Goals Progressing Outcome/Goals Met Pt continues to demonstate increased independence during ADL routine and tolerates tx session well. Pt taking breaks as needed and is able to tell when she needs to take breaks in order to be safe. Pt wants to be d/c sooner than her anticipated d/ c date. Team meeting this date to determine is pt is safe to be d/c home sooner . Cardiovascular- Improve/Maintain Start: 07/13/18 23:45 Freq: QSHIFT Status: Active Target: Protocol: Activity Type Activity Date Activity User E-Sign Co-Sign Detail Recorded Client Recorded Date Recorded By Document 08/02/18 23:52 [id number] [id number] 08/02/18 23:52 [id number] 08/02/18 23:52 PMRU Outcome: Cardiovascular Vital Signs q Shift for 48hrs Then BID Yes Daily Weight Ordered Yes Current Cardiovascular Outcome/Goal Maintain/ Achieve Baseline HR, BP , Perfusion Improve HR Within Prescribed Parameters Free of Abnormal Cardiac Symptoms Improve/ Maintain Cardiac Output Progression Toward Outcome/Goal Progressing Communication-Improve/Maintain Start: 07/13/18 23:45 Freq: DAILY Status: Active Target: Protocol: Activity Type Activity Date Activity User E-Sign Co-Sign Detail Recorded Client Recorded Date Recorded By Document 08/02/18 23:52 [id number] 08/02/18 23:52 [id number] 08/02/18 23:52 PMRU Outcome: Communication/Cognitive Status Outcome/Goals Makes Needs Known Effectively Progression Toward Outcomes/Goals Progressing DVT Prophylaxis- Improve/Maintain Start: 07/13/18 23:45 Freq: QSHIFT Status: Active Target: Protocol: Activity Type Activity Date Activity User E-Sign Co-Sign Detail Recorded Client Recorded Date Recorded By Document 08/02/18 23:52 [id number] 08/02/18 23:52 [id number] 08/02/18 23:52 PMRU Outcome: DVT Prophylaxis Outcome/Goals Remains Free of DVT Complies with DVT Prophylaxis /Treatment Progression Toward Outcome/Goals Progressing Discharge Planning - Improve/Maintain Start: 07/13/18 23:45 Freq: DAILY Status: Active Target: Protocol: Activity Type Activity Date Activity User E-Sign Co-Sign Detail Recorded Client Recorded Date Recorded By Document 08/02/18 23:55 [id number] 08/02/18 23:55 [id number] 08/02/18 23:55 PMRU Outcome: Discharge Planning Update Patient Family No Outcome/Goals Demonstrates Understanding of Discharge Plan Progression Toward Outcome/Goals Progressing Education-Improve/Maintain Start: 07/13/18 23:45 Freq: QSHIFT Status: Active Target: Protocol: Activity Type Activity Date Activity User E-Sign Co-Sign Detail Recorded Client Recorded Date Recorded By Document 08/02/18 23:52 [id number] 08/02/18 23:52 [id number] 08/02/18 23:52 PMRU Outcome: Education Outcome/Goals Encourage Questions Progression Toward Outcome/Goals Progressing Medication Administration Start: 07/13/18 23:45 Freq: QSHIFT Status: Active Target: Protocol: Activity Type Activity Date Activity User E-Sign Co-Sign Detail Recorded Client Recorded Date Recorded By Document 08/02/18 23:52 [id number] [id number] 08/02/18 23:52 [id number] 08/02/18 23:52 PMRU Outcome: Medication Administration Assess Patient Knowledge/Teach Med Yes Education for all Meds Outcome/Goals Patient Independent with Medication Administration at Home Demonstrates Understanding Progression Towards Outcome/Goals Progressing Is Patient Going Home on Lovenox? No Mobility- Improve/Maintain Start: 07/13/18 23:45 Freq: DAILY Status: Active Target: Protocol: Activity Type Activity Date Activity User E-Sign Co-Sign Detail Recorded Client Recorded Date Recorded By Document 07/14/18 18:00 [id number] [id number] 07/16/18 10:16 [id number] 07/14/18 18:00 PMRU Outcome: Mobility Physical Therapy Evaluation and Yes Treatment Activity OOB with Assistance Yes WBAT Yes Device Yes Assistance Yes Patient to be seen 5x/wk for 60-120 min/ Therex day for: Mobility Training Gait Training W/C Mobility Balance Other Outcome/Goals Maintain/ Achieve Baseline Mobility Status Improve Mobility Status Demonstrates Proper Use of Assistive Devices Free from Complications of Immobility Bed Mobility Yes: independent Transfers Yes: independent with rolling walker Gait x ft Yes: independent with rolling alker to 150' Up/Down Stairs Yes: independent up/ down 1 flight with 2 rails Neurological- Improve/Maintain Start: 07/13/18 23:45 Freq: QSHIFT Status: Active Target: Protocol: Activity Type Activity Date Activity User E-Sign Co-Sign Detail Recorded Client Recorded Date Recorded By Document 08/02/18 23:52 [id number] 08/02/18 23:52 [id number] 08/02/18 23:52 PMRU Outcome: Neurological Weakness/Aphasia Weakness Outcome/Goals Maintain/ Achieve Baseline Neurological Status Improve Neurological Status Maintain/ Improve Strength/ROM Progression Toward Outcome/Goals Progressing Nutrition/Swallowing- Improve/Maintain Start: 07/13/18 23:45 Freq: QSHIFT Status: Active Target: Protocol: Activity Type Activity Date Activity User E-Sign Co-Sign Detail Recorded Client Recorded Date Recorded By Document 08/02/18 23:52 [id number] [id number] 08/02/18 23:52 [id number] 08/02/18 23:52 PMRU Outcome: Nutrition/Swallowing Outcome/Goals Demonstrates Adequate Hydration/ Prevents Dehydration Maintain/ Improve Nutritional Status Progression Toward Outcome/Goals Progressing Pain/Comfort- Improve/Maintain Start: 07/13/18 23:45 Freq: QSHIFT Status: Active Target: Protocol: Activity Type Activity Date Activity User E-Sign Co-Sign Detail Recorded Client Recorded Date Recorded By Document 08/02/18 23:52 [id number] 08/02/18 23:52 [id number] 08/02/18 23:52 PMRU Outcome: Pain/Comfort Outcome/Goals Demonstrates Knowledge and Use of Available Comfort Measures Achieves Acceptable Comfort/Pain Level as Determined by Patient/Condit Maintain Comfort Level Allowing Patient to Fully Participate in Rehab Progression Toward Outcome/Goals Progressing Respiratory - Improve/Maintain Start: 07/13/18 23:45 Freq: QSHIFT Status: Active Target: Protocol: Activity Type Activity Date Activity User E-Sign Co-Sign Detail Recorded Client Recorded Date Recorded By Document 08/02/18 23:52 [id number] 08/02/18 23:52 [id number] 08/02/18 23:52 PMRU Outcome: Respiratory Does Patient Have a Trach No Outcome/Goals Maintain/ Improve O2 Sat per MD Order Maintain/ Improve Activity Tolerance Outcome/Goals Met Maintain/ Improve O2 Sat per MD Order Maintain/ Improve Activity Tolerance Safety- Improve/Maintain Start: 07/13/18 23:45 Freq: QSHIFT Status: Active Target: Protocol: Activity Type Activity Date Activity User E-Sign Co-Sign Detail Recorded Client Recorded Date Recorded By Document 08/02/18 23:52 [id number] 08/02/18 23:52 [id number] 08/02/18 23:52 PMRU Outcome: Safety Outcome/Goals Remain Free of Injury or Harm Cooperates with Safety Measures for Least Restrictive Environment Prevent Falls/ Injury Progression Toward Outcome/Goals Progressing Outcome/Goals Met Remain Free of Injury or Harm Prevent Falls/ Injury Skin- Improve/Maintain Start: 07/13/18 23:45 Freq: QSHIFT Status: Active Target: Protocol: Activity Type Activity Date Activity User E-Sign Co-Sign Detail Recorded Client Recorded Date Recorded By Document 08/02/18 23:52 [id number] [id number] 08/02/18 23:52 [id number] 08/02/18 23:52 PMRU Outcome: Skin Skin Risk Level High Skin Orders Turn/Position q2hr While in Bed Outcome/Goals Maintain/ Improve Skin Intergrity Surgical Incisions Healing Progression Toward Outcome/Goals Progressing Medicine Note: Length of Stay: 3 days Anticipated Discharge Destination: Home Tentative Discharge Date: 08/06/18 Discharged to: home
[2018-08-03] MEDS: Enoxaparin(*) 40 MG/0.4 ML SYR SUBCUT SCH (18:18)
--- NOTE | 2018-08-03 18:26 | PN ---
Progress Note Date of Service: 08/03/18 Note: CARY DUMONT was visited. Therapy notes read and reviewed. She was discussed in interdisciplinary team rounds. Her mobility is better and she may be able to go home by week's end. We will cut back her TF to 6 hours a day. Her PO is better. Current Medications: Active Medications Generic Name Dose Route Start Last Admin Trade Name Freq PRN Reason Stop Dose Admin Acetaminophen 650 mg 07/13/18 17:45 07/13/18 20:20 Tylenol Tab* PO 650 mg Q6H PRN Administration FEVER/PAIN Amiodarone HCl 100 mg 07/14/18 09:00 08/03/18 10:00 Cordarone Tab* PO 100 mg DAILY MARCELA Administration Bisacodyl 10 mg 07/15/18 11:26 07/15/18 17:46 Dulcolax Supp* MT 10 mg DAILY PRN Administration CONSTIPATION Calcium Carbonate 500 mg 07/22/18 21:00 08/03/18 15:27 Tums* PO Not Given TID MARCELA Clonidine HCl 0.1 mg 07/18/18 09:00 08/01/18 10:08 [id number]-[id number] 0.1 Mg Patch* TRANSDERM 0.1 mg Q7D MARCELA Administration Docusate Sodium 100 mg 07/15/18 21:00 08/03/18 10:00 Colace Cap* PO 100 mg BID MARCELA Administration Enoxaparin Sodium 40 mg 07/13/18 18:00 08/03/18 18:18 Lovenox(*) SUBCUT 40 mg Q24H MARCELA Administration Ferrous Sulfate 300 mg 07/23/18 09:00 08/03/18 09:00 Feosol Liq* PO Not Given DAILY MARCELA Melatonin 3 mg 07/22/18 20:26 08/01/18 21:05 Melatonin PO 3 mg BEDTIME PRN Administration SLEEP Protocol Methocarbamol 750 mg 07/16/18 12:46 07/17/18 11:01 Robaxin Tab* PO 750 mg TID PRN Administration SPASMS Metoprolol Tartrate 25 mg 07/13/18 21:00 08/03/18 10:01 Lopressor Tab* PO 25 mg BID MARCELA Administration Multi-Ingredient Ointment 1 applic 07/20/18 21:00 08/03/18 08:43 Hydrocerin* TOPICAL 1 applic BID MARCELA Administration Multivitamins 15 ml 07/23/18 09:00 08/03/18 09:00 Theragran W/Minerals Liq* PO Not Given DAILY MARCELA Oxycodone HCl 5 mg 07/13/18 17:53 08/03/18 14:41 Roxycodone Tab* PO 5 mg Q6H PRN Administration PAIN - MODERATE TO SEVERE Polyethylene Glycol/Electrolytes 17 gm 07/15/18 10:50 07/30/18 15:54 Miralax* PO 17 gm DAILY PRN Administration CONSTIPATION Prochlorperazine 10 mg 07/13/18 17:55 07/24/18 16:28 Compazine Tab* PO 10 mg Q8HR PRN Administration NAUSEA Prochlorperazine 10 mg 07/21/18 07:00 08/03/18 07:32 Compazine Tab* PO 10 mg 0700 MARCELA Administration Senna 2 tab 07/16/18 21:00 08/02/18 22:17 Senokot Tab* PO 2 tab BEDTIME MARCELA Administration Vital Signs: Vital Signs Temp Pulse Resp BP Pulse Ox 97.9 F 74 18 111/67 100 08/03/18 04:26 08/03/18 16:19 08/03/18 17:11 08/03/18 16:19 08/03/18 17:28 Exam: GENERAL: no acute distress. alert and appropriate. LUNGS: clear to auscultation bilaterally HEART: regular rate and rhythm ABDOMEN: + bowel sounds. Soft. Midline wound. G-Tube. non-tender. non-distended. EXTREMITIES: No edema. NEUROLOGIC: 4/5 strength BUE and BLE. SKIN: midline incision dressed. open area on right buttock Assessment/Plan: 1. Critical Care Myopathy: PT/OT. 2. S/P Tila-en-Y Gastric Bypass, Peforation, Multiple Abcesses: Tolerating PO. 3. Polymorphic VT Arrest: Life Vest, Amiodarone, Lopressor. Appreciate Dr. Santoyo's follow up. Will need cardiac cath after d/c. Question if can d/c amio 4. Malnutrition: Promote TF at 90 ml/hr through GTube. 6P-12A. H2O flush. PO. Need to continue TF for now. Liquid vitamins. 5. Pressure Ulcer: Abd wound with puracol with telfa. Right buttock with optifoam/mepilex. nutritional support, wound rounds weekly 6. Advanced Directives: Full code 7. DVT Prophylaxis: Lovenox 08/03/18 18:26
[2018-08-03] MEDS: Senna TAB PO SCH (20:51)
[2018-08-04] MEDS: oxyCODONE TAB* 5 MG TAB PO PRN ×3 (02:51→21:00)
[2018-08-04 08:09] LABS: ABS Basophils 0.1 10^3/ul (0-0.2); ABS Eosinophils 0.2 10^3/ul (0-0.6); ABS Lymphocytes 1.9 10^3/ul (1.0-4.8); ABS Monocytes 0.6 10^3/ul (0-0.8); ABS Neutrophils 3.9 10^3/ul (1.5-7.7); ABS Nucleated RBC 0 10^3/ul; Eosinophil % 2.4 %; Hematocrit 30 % (35-47); Hemoglobin 10.2 g/dl (12.0-16.0); Mean Corpuscular HGB Conc 34 g/dl (31-36); Mean Corpuscular Hemoglobin 31 pg (27-31); Mean Corpuscular Volume 92 fL (80-97); Mean Platelet Volume 6.8 fL (7.4-10.4); Nucleated Red Blood Cells % 0; Platelet Count 422 10^3/ul (150-450); Red Blood Count 3.25 10^6/ul (4.00-5.40); Red Cell Distribution Width 17 % (10.5-15); White Blood Count 6.6 10^3/ul (3.5-10.8)
[2018-08-04 08:25] LABS: EGFR Non-African American 113.2 (>60)
[2018-08-04] MEDS: Prochlorperazine TAB* 10 MG PO SCH (09:44)
[2018-08-04] MEDS: Moisturizing CREAM* 120 GM JAR TOPICAL SCH ×2 (09:47→20:59)
[2018-08-04] MEDS: Calcium Carbonate CHEW TAB* 500 MG (TUMS) PO SCH ×3 (09:47→20:56)
[2018-08-04] MEDS: Amiodarone TAB* 200 MG PO SCH (11:43)
[2018-08-04] MEDS: Docusate CAP* 100 MG PO SCH ×2 (11:43→20:59)
[2018-08-04] MEDS: Metoprolol Tartrate TAB* 25 MG PO SCH ×2 (11:43→20:59)
[2018-08-04] MEDS: Multivitamins ADULT w/MIN LIQ* 15 ML UDC PO SCH (12:52)
[2018-08-04] MEDS: Ferrous Sulfate LIQ* 300 MG/5 ML UDC PO SCH (12:52)
[2018-08-04] MEDS: Enoxaparin(*) 40 MG/0.4 ML SYR SUBCUT SCH (18:03)
--- NOTE | 2018-08-04 20:04 | PN ---
Progress Note Date of Service: 08/04/18 Note: CRAY DUMONT was visited. Therapy notes read and reviewed. She is getting ready to go home. She has an appointment with Dr. Pryor, the performance specialist for Thursday. She will also follow with [facility] for bariatric follow up. She hopes to get there in two weeks. She is still n tube feeds but we have cut back. Some concerns she is not getting enough liquids Current Medications: Active Medications Generic Name Dose Route Start Last Admin Trade Name Freq PRN Reason Stop Dose Admin Acetaminophen 650 mg 07/13/18 17:45 07/13/18 20:20 Tylenol Tab* PO 650 mg Q6H PRN Administration FEVER/PAIN Amiodarone HCl 100 mg 07/14/18 09:00 08/04/18 11:43 Cordarone Tab* PO 100 mg DAILY MARCELA Administration Bisacodyl 10 mg 07/15/18 11:26 07/15/18 17:46 Dulcolax Supp* [place] 10 mg DAILY PRN Administration CONSTIPATION Calcium Carbonate 500 mg 07/22/18 21:00 08/04/18 12:52 Tums* PO Not Given TID MARCELA Clonidine HCl 0.1 mg 07/18/18 09:00 08/01/18 10:08 Jotivkxz-Inv-1 0.1 Mg Patch* TRANSDERM 0.1 mg Q7D MARCELA Administration Docusate Sodium 100 mg 07/15/18 21:00 08/04/18 11:43 Colace Cap* PO 100 mg BID MARCELA Administration Enoxaparin Sodium 40 mg 07/13/18 18:00 08/04/18 18:03 Lovenox(*) SUBCUT 40 mg Q24H MARCELA Administration Ferrous Sulfate 300 mg 07/23/18 09:00 08/04/18 12:52 Feosol Liq* PO 300 mg DAILY MARCELA Administration Melatonin 3 mg 07/22/18 20:26 08/01/18 21:05 Melatonin PO 3 mg BEDTIME PRN Administration SLEEP Protocol Methocarbamol 750 mg 07/16/18 12:46 07/17/18 11:01 Robaxin Tab* PO 750 mg TID PRN Administration SPASMS Metoprolol Tartrate 25 mg 07/13/18 21:00 08/04/18 11:43 Lopressor Tab* PO 25 mg BID MARCELA Administration Multi-Ingredient Ointment 1 applic 07/20/18 21:00 08/04/18 09:47 Hydrocerin* TOPICAL 1 applic BID MARCELA Administration Multivitamins 15 ml 07/23/18 09:00 08/04/18 12:52 Theragran W/Minerals Liq* PO 15 ml DAILY MARCELA Administration Oxycodone HCl 5 mg 07/13/18 17:53 08/04/18 14:21 Roxycodone Tab* PO 5 mg Q6H PRN Administration PAIN - MODERATE TO SEVERE Polyethylene Glycol/Electrolytes 17 gm 07/15/18 10:50 07/30/18 15:54 Miralax* PO 17 gm DAILY PRN Administration CONSTIPATION Prochlorperazine 10 mg 07/13/18 17:55 07/24/18 16:28 Compazine Tab* PO 10 mg Q8HR PRN Administration NAUSEA Prochlorperazine 10 mg 07/21/18 07:00 08/04/18 09:44 Compazine Tab* PO 10 mg 0700 MARCELA Administration Senna 2 tab 07/16/18 21:00 08/03/18 20:51 Senokot Tab* PO Not Given BEDTIME [facility] Vital Signs: Vital Signs Temp Pulse Resp BP Pulse Ox 97.6 F 75 16 113/69 98 08/04/18 15:29 08/04/18 15:29 08/04/18 16:20 08/04/18 15:29 08/04/18 15:29 Lab Results: Laboratory Results - last 24 hr 08/04/18 08/04/18 07:51 07:51 WBC 6.6 RBC 3.25 L Hgb 10.2 L Hct 30 L MCV 92 MCH 31 MCHC 34 RDW 17 H Plt Count 422 MPV 6.8 L Neut % (Auto) 58.7 Lymph % (Auto) 29.0 [place] % (Auto) 8.8 Eos % (Auto) 2.4 Baso % (Auto) 1.1 Absolute Neuts (auto) 3.9 Absolute Lymphs (auto) 1.9 Absolute Monos (auto) 0.6 Absolute Eos (auto) 0.2 Absolute Basos (auto) 0.1 Absolute Nucleated RBC 0 Nucleated RBC % 0 Sodium 136 Potassium 4.1 Chloride 102 Carbon Dioxide 26 Anion Gap 8 BUN 17 Creatinine 0.57 Est GFR ( Amer) 137.0 Est GFR (Non-Af Amer) 113.2 BUN/Creatinine Ratio 29.8 H Glucose 99 Calcium 10.0 Total Bilirubin 0.50 AST 22 ALT 20 Alkaline Phosphatase 189 H Total Protein 7.2 Albumin 3.8 Globulin 3.4 Albumin/Globulin Ratio 1.1 Exam: GENERAL: no acute distress. alert and appropriate. LUNGS: clear to auscultation bilaterally HEART: regular rate and rhythm ABDOMEN: + bowel sounds. Soft. Midline wound. G-Tube. non-tender. non-distended. EXTREMITIES: No edema. NEUROLOGIC: 4/5 strength BUE and BLE. SKIN: midline incision dressed. open area on right buttock Assessment/Plan: 1. Critical Care Myopathy: PT/OT. 2. S/P Tila-en-Y Gastric Bypass, Peforation, Multiple Abcesses: Tolerating PO. 3. Polymorphic VT Arrest: Life Vest, Amiodarone, Lopressor. Will see DR. Juan A Pryor in [place] for follow up. May need cardiac cath he may d/c amio 4. Malnutrition: Promote TF at 90 ml/hr through GTube. 6P-12A. H2O flush. PO. Need to continue TF for now. Liquid vitamins. Home with cans of TF 5. Pressure Ulcer: Abd wound with puracol with telfa. Right buttock with optifoam/mepilex. nutritional support, wound rounds weekly 6. Advanced Directives: Full code 7. DVT Prophylaxis: Lovenox 08/04/18 20:04
[2018-08-04] MEDS: Senna TAB PO SCH (20:59)
[2018-08-05] MEDS: oxyCODONE TAB* 5 MG TAB PO PRN ×3 (03:00→21:57)
[2018-08-05] MEDS: Prochlorperazine TAB* 10 MG PO SCH (06:38)
[2018-08-05] MEDS: Calcium Carbonate CHEW TAB* 500 MG (TUMS) PO SCH ×3 (08:53→20:40)
[2018-08-05] MEDS: Docusate CAP* 100 MG PO SCH ×2 (08:54→20:46)
[2018-08-05] MEDS: Amiodarone TAB* 200 MG PO SCH (08:54)
[2018-08-05] MEDS: Metoprolol Tartrate TAB* 25 MG PO SCH ×2 (08:54→20:45)
[2018-08-05] MEDS: Moisturizing CREAM* 120 GM JAR TOPICAL SCH ×2 (09:30→21:01)
[2018-08-05] MEDS: Multivitamins ADULT w/MIN LIQ* 15 ML UDC PO SCH (11:29)
[2018-08-05] MEDS: Ferrous Sulfate LIQ* 300 MG/5 ML UDC PO SCH (11:29)
--- NOTE | 2018-08-05 12:38 | PN ---
Progress Note Date of Service: 08/05/18 Note: CARY DUMONT was visited. Nursing and therapy notes read and reviewed. No chest pain, shortness of breath or abdominal pain. Eager to go home tomorrow morning. Family coming in for training tomorrow morning. Current Medications: Active Medications Generic Name Dose Route Start Last Admin Trade Name Freq PRN Reason Stop Dose Admin Acetaminophen 650 mg 07/13/18 17:45 07/13/18 20:20 Tylenol Tab* PO 650 mg Q6H PRN Administration FEVER/PAIN Amiodarone HCl 100 mg 07/14/18 09:00 08/05/18 08:54 Cordarone Tab* PO 100 mg DAILY MARCELA Administration Bisacodyl 10 mg 07/15/18 11:26 07/15/18 17:46 Dulcolax Supp* [place] 10 mg DAILY PRN Administration CONSTIPATION Calcium Carbonate 500 mg 07/22/18 21:00 08/05/18 08:53 Tums* PO Not Given TID MARCELA Clonidine HCl 0.1 mg 07/18/18 09:00 08/01/18 10:08 Ujcvsadp-Pnv-6 0.1 Mg Patch* TRANSDERM 0.1 mg Q7D MARCELA Administration Docusate Sodium 100 mg 07/15/18 21:00 08/05/18 08:54 Colace Cap* PO 100 mg BID MARCELA Administration Enoxaparin Sodium 40 mg 07/13/18 18:00 08/04/18 18:03 Lovenox(*) SUBCUT 40 mg Q24H MARCELA Administration Ferrous Sulfate 300 mg 07/23/18 09:00 08/05/18 11:29 Feosol Liq* PO 300 mg DAILY MARCELA Administration Metoprolol Tartrate 25 mg 07/13/18 21:00 08/05/18 08:54 Lopressor Tab* PO 25 mg BID MARCELA Administration Multi-Ingredient Ointment 1 applic 07/20/18 21:00 08/05/18 09:30 Hydrocerin* TOPICAL 1 applic BID MARCELA Administration Multivitamins 15 ml 07/23/18 09:00 08/05/18 11:29 Theragran W/Minerals Liq* PO 15 ml DAILY MARCELA Administration Non-Formulary Medication 1 tab 08/06/18 09:00 Opurity Multivitamin PO DAILY MARCELA Oxycodone HCl 5 mg 07/13/18 17:53 08/05/18 03:00 Roxycodone Tab* PO 5 mg Q6H PRN Administration PAIN - MODERATE TO SEVERE Prochlorperazine 10 mg 07/13/18 17:55 07/24/18 16:28 Compazine Tab* PO 10 mg Q8HR PRN Administration NAUSEA Prochlorperazine 10 mg 07/21/18 07:00 08/05/18 06:38 Compazine Tab* PO 10 mg 0700 MARCELA Administration Senna 2 tab 07/16/18 21:00 08/04/18 20:59 Senokot Tab* PO Not Given BEDTIME MARCELA Vital Signs: Vital Signs Temp Pulse Resp BP Pulse Ox 97.8 F 86 20 125/79 97 08/05/18 06:37 08/05/18 06:37 08/05/18 06:37 08/05/18 06:37 08/05/18 06:37 Exam: GENERAL: no acute distress. alert and appropriate. LUNGS: clear to auscultation bilaterally HEART: regular rate and rhythm ABDOMEN: + bowel sounds. Soft. Midline wound. G-Tube. non-tender. non-distended. EXTREMITIES: No edema. NEUROLOGIC: 4+/5 strength BUE and BLE. SKIN: midline incision dressed. open area on right buttock with dressing on Assessment/Plan: 1. Critical Care Myopathy: PT/OT. 2. S/P Tila-en-Y Gastric Bypass, Peforation, Multiple Abcesses: Tolerating PO. Oxycodone for pain. Wean off as tolerated and f/u with PCP. 3. Polymorphic VT Arrest: Life Vest, Amiodarone, Lopressor. Will see DR. Juan A Pryor in [place] for follow up on Thursday. May need cardiac cath he may d/c amio 4. Malnutrition: Promote TF change to 100 ml/hr through GTube. 6P-11P for total of 500cc per day. Family training tomorrow. H2O flush. PO. Need to continue TF for now to keep up nutrition for wound healing. Liquid vitamins in hospital and she will order online Opurity MVI for bypass as recommended by Vivi Carbone. f/u with PCP. 5. Pressure Ulcer: Abd wound with puracol with telfa. Right buttock with optifoam/mepilex. nutritional support. Family training for dressing changes before discharge. 6. Advanced Directives: Full code 7. DVT Prophylaxis: Lovenox 8. Dispo: anticipate d/c tomorrow. 08/05/18 12:33
[2018-08-05] MEDS: Enoxaparin(*) 40 MG/0.4 ML SYR SUBCUT SCH (17:15)
[2018-08-05] MEDS: Senna TAB PO SCH (20:46)
[2018-08-06] MEDS: oxyCODONE TAB* 5 MG TAB PO PRN (06:13)
[2018-08-06] MEDS: Prochlorperazine TAB* 10 MG PO SCH (06:13)
[2018-08-06 06:19] VITALS: BP 128/71
--- NOTE | 2018-08-06 09:01 | PN ---
Progress Note Date of Service: 08/06/18 Note: CARY DUMONT was visited. Nursing and therapy notes read and reviewed. No chest pain, shortness of breath or abdominal pain. She had a large BM this morning. Current Medications: Active Medications Generic Name Dose Route Start Last Admin Trade Name Freq PRN Reason Stop Dose Admin Acetaminophen 650 mg 07/13/18 17:45 07/13/18 20:20 Tylenol Tab* PO 650 mg Q6H PRN Administration FEVER/PAIN Amiodarone HCl 100 mg 07/14/18 09:00 08/05/18 08:54 Cordarone Tab* PO 100 mg DAILY MARCELA Administration Bisacodyl 10 mg 07/15/18 11:26 07/15/18 17:46 Dulcolax Supp* [place] 10 mg DAILY PRN Administration CONSTIPATION Calcium Carbonate 500 mg 07/22/18 21:00 08/05/18 20:40 Tums* PO Not Given TID MARCELA Clonidine HCl 0.1 mg 07/18/18 09:00 08/01/18 10:08 Rzilzbcx-Dqm-9 0.1 Mg Patch* TRANSDERM 0.1 mg Q7D MARCELA Administration Docusate Sodium 100 mg 07/15/18 21:00 08/05/18 20:46 Colace Cap* PO 100 mg BID MARCELA Administration Enoxaparin Sodium 40 mg 07/13/18 18:00 08/05/18 17:15 Lovenox(*) SUBCUT 40 mg Q24H MARCELA Administration Ferrous Sulfate 300 mg 07/23/18 09:00 08/05/18 11:29 Feosol Liq* PO 300 mg DAILY MARCELA Administration Metoprolol Tartrate 25 mg 07/13/18 21:00 08/05/18 20:45 Lopressor Tab* PO 25 mg BID MARCELA Administration Multi-Ingredient Ointment 1 applic 07/20/18 21:00 08/05/18 21:01 Hydrocerin* TOPICAL 1 applic BID MARCELA Administration Multivitamins 15 ml 07/23/18 09:00 08/05/18 11:29 Theragran W/Minerals Liq* PO 15 ml DAILY MARCELA Administration (Opurity 1 tab 08/06/18 09:00 Multivitamin 1 Tab) PO DAILY MARCELA Oxycodone HCl 5 mg 07/13/18 17:53 08/06/18 06:13 Roxycodone Tab* PO 5 mg Q6H PRN Administration PAIN - MODERATE TO SEVERE Prochlorperazine 10 mg 07/13/18 17:55 07/24/18 16:28 Compazine Tab* PO 10 mg Q8HR PRN Administration NAUSEA Prochlorperazine 10 mg 07/21/18 07:00 08/06/18 06:13 Compazine Tab* PO 10 mg 0700 MARCELA Administration Senna 2 tab 07/16/18 21:00 08/05/18 20:46 Senokot Tab* PO 2 tab BEDTIME MARCELA Administration Vital Signs: Vital Signs Temp Pulse Resp BP Pulse Ox 98.4 F 84 18 128/71 96 08/06/18 06:11 08/06/18 06:11 08/06/18 06:13 08/06/18 06:11 08/06/18 06:11 Exam: GENERAL: no acute distress. alert and appropriate. LUNGS: clear to auscultation bilaterally HEART: regular rate and rhythm ABDOMEN: + bowel sounds. Soft. Midline wound. G-Tube. non-tender. non-distended. EXTREMITIES: No edema. Assessment/Plan: 1. Critical Care Myopathy: Recommended continue to increase mobility and keep up with exercises to get stronger. f/u with PCP. 2. S/P Tila-en-Y Gastric Bypass, Peforation, Multiple Abcesses: Tolerating PO. Oxycodone for pain. Wean off as tolerated and f/u with PCP. I d/w her surgical f /u, but she refuses to f/u with her surgeon and may seek f/u with one of our local bariatric surgeons. 3. Polymorphic VT Arrest: Life Vest, Amiodarone, Lopressor. Will see DR. Juan A Pryor in [place] for follow up on Thursday. May need cardiac cath he may d/c amio 4. Malnutrition: Promote TF ordered for 100 ml/hr through [employer] 6P-11P for total of 500cc per day. Family training today. H2O flushes. PO. Need to continue TF for now to keep up nutrition for wound healing. This may not get covered by her insurance. In that scenario she needs to keep up with increasing oral intake. Opurity MVI for gastric sleeve and bypass as recommended by Vivi Carbone. f/u with PCP. 5. Pressure Ulcer: Abd wound with puracol with telfa. Right buttock with optifoam/mepilex. nutritional support. Family training for dressing changes before discharge. 6. Advanced Directives: Full code 7. DVT Prophylaxis: Lovenox 8. Dispo: anticipate d/c today. 08/06/18 08:57
[2018-08-06] MEDS: Moisturizing CREAM* 120 GM JAR TOPICAL SCH (10:00)
[2018-08-06] MEDS: Amiodarone TAB* 200 MG PO SCH (10:35)
[2018-08-06] MEDS: Calcium Carbonate CHEW TAB* 500 MG (TUMS) PO SCH (10:35)
[2018-08-06] MEDS: Docusate CAP* 100 MG PO SCH (10:35)
[2018-08-06] MEDS: Metoprolol Tartrate TAB* 25 MG PO SCH (10:35)
[2018-08-06] MEDS: Multivitamins ADULT w/MIN LIQ* 15 ML UDC PO SCH (10:35)
[2018-08-06] MEDS: Ferrous Sulfate LIQ* 300 MG/5 ML UDC PO SCH (10:45)
--- NOTE | 2018-08-07 07:23 | DS ---
CC: Dr. Jas Garza; Dr. Juan A Pryor; [facility], Jennie Carbone NP REHABILITATION DISCHARGE: DATE OF ADMISSION: 07/13/18 DATE OF DISCHARGE: 08/06/18 PRIMARY CARE PROVIDER: Joslyn Alvarez. LEAD ANDROID DEVELOPER: Dr. Juan A Pryor, phone number is [phone]. [facility], Jennie Carbone NP. REASON FOR ADMISSION: Critical illness myopathy. HISTORY OF PRESENT ILLNESS: For full details of her acute hospitalization leading up to her admission, please see the note dictated by Dr. Rangel on 02/22. HOSPITAL COURSE: During her time on the PMRU, her abdominal wound was followed by our wound care team. It has been improving. It is currently dressed daily with Puracol and Telfa. Her family has been trained on doing these dressing changes with her at home. Also, she was noted to have a shear injury to her right buttock, which was present on admission. This was also evaluated by the wound care team and is currently treated with Optifoam or Mepilex dressing daily. This has also improved. She has continued wearing the LifeVest as ordered by Cardiology. She intends to follow up and has an appointment with Dr. Juan A Pryor on 08/07/18, to review her cardiac situation during her acute illness, which included polymorphic ventricular tachycardia and cardiac arrest. She knows she needs cardiac clearance before discontinuation of the LifeVest and further evaluation to determine if she should have a defibrillator implanted. She may need a cardiac catheterization. She has continued on amiodarone, but it is also questionable whether she needs to continue this. She continues using clonidine as well as Lopressor. She has continued to have some discomfort from her Tila-en-Y gastric bypass and subsequent surgeries. She has been using oxycodone up to three 5 mg tablets per day. She has been advised to wean off this as tolerated. She has had severe malnutrition and had great difficulty in initiating oral intake. In the last 10 days that has improved. She still, however, requires additional tube feeding at night to assist with improving her protein intake to assist with wound healing of the abdominal wound and the right buttock shear injury that was present on admission. She is currently receiving Promote tube feed 100 mL for 5 hours at night between 6 p.m. and 11 p.m. Her family has been trained how to do water flushes for her feeding tube and pending at the time of discharge is whether her insurance will cover tube feeds. If it is covered, they will be trained by the provider of the pump and tube feeds at home. She was seen during her time here by Jennie Carbone NP, with [facility]. She assisted us with guidance on the appropriate bariatric soft diet as well as nutritional support. It is recommended that Ana Laura order and purchase Opurity multivitamin specifically for gastric sleeve and bypass surgery patients to cover all her nutritional needs. During her time on the PMRU, she received liquid iron and a multivitamin. She was educated and given literature on her nutritional needs post-bypass. While on the PMRU, she participated well with Physical Therapy and at the time of discharge was independent with bed mobility , transfers with a rolling walker, ambulation with a rolling walker up to 300 feet and going up and down 5 stairs. If she needs to do a flight of stairs, she should have supervision or contact guard assistance. Her family has been trained to assist her. It is recommended when she initially goes home, to do stairs with someone. She participated well with Occupational Therapy and at the time of discharge is independent with oral intake. She is independent with bathing and tub transfers using a long handled sponge and shower chair. She is independent with dressing with the use of adaptive equipment. She is independent toileting and with toilet transfers with a 3-in-1 commode and walker. She is independent with simple household tasks. She has [employer] home exercise program. DISCHARGE CONDITION: Fair to guarded. DISCHARGE DISPOSITION: Home with family support. DISCHARGE MEDICATIONS: 1. Acetaminophen 650 mg q.6 hours p.r.n. pain. 2. Amiodarone 100 mg q. day. 3. Calcium carbonate 500 mg t.i.d. 4. Clonidine 0.1 mg patch applied transdermally every 7 days. 5. Docusate 100 mg b.i.d. 6. Metoprolol 25 mg b.i.d. 7. Opurity multivitamin 1 q. day. 8. Oxycodone 5 mg q.6 hours p.r.n. pain, not to exceed 3 per day and wean off as tolerated. 9. Compazine 10 mg p.o. q.a.m. 10. MiraLAX 17 g q. day p.r.n. constipation. 11. Senna 2 tablets q.h.s. p.r.n. FOLLOWUP: 1. A referral has been sent to [facility] for fci assessments of her ongoing wounds and dressings, physical therapy, occupational therapy, and a dietitian. 2. She should follow up with [facility] with Jennie Carbone next week. 3. Follow up with Dr. Juan A Pryor in Cardiology on 08/07/18. 4. Follow up with her primary care provider, Dr. Jas Garza, in 1 to 2 weeks. 5. Follow up with a surgeon such as her bariatric surgeon, Dr. Santino Rodrigez , in 1 to 2 weeks. DISCHARGE CONDITION: Guarded. DISCHARGE DIAGNOSES: 1. Severe malnutrition. 2. Critical illness myopathy. 3. Status post Tila-en-Y gastric bypass complicated by perforation and abscesses. 4. History of polymorphic ventricular tachycardia cardiac arrest. 5. Abdominal wound from prior surgery. 6. Shear skin injury to right buttock present on admission. [id number]/[facility] #: [id number] [facility]
== END 2018-08-06 13:40 | disposition home health service (06) | DRG 58 ==
LOC: PMRU 16:17 → UNDODISIN 08-06 13:40
PROVIDERS: ADMIT Physical Medicine & Rehabilitation; ATTEND Physical Medicine & Rehabilitation
PROC: F07Z5ZZ Bed Mobility Treatment (ICD-10-PCS; principal; 2018-07-13)
PROC: F07Z9ZZ Gait Training/Functional Ambulation Treatment (ICD-10-PCS; 2018-07-13)
PROC: F07Z8ZZ Transfer Training Treatment (ICD-10-PCS; 2018-07-13)
PROC: F07Z4ZZ Wheelchair Mobility Treatment (ICD-10-PCS; 2018-07-13)
PROC: F08Z0ZZ Bathing/Showering Techniques Treatment (ICD-10-PCS; 2018-07-13)
PROC: F08Z1ZZ Dressing Techniques Treatment (ICD-10-PCS; 2018-07-13)
PROC: F08Z2ZZ Grooming/Personal Hygiene Treatment (ICD-10-PCS; 2018-07-13)
DX: G72.81 Critical illness myopathy (principal); E43 Unspecified severe protein-calorie malnutrition; L89.313 Pressure ulcer of right buttock, stage 3; I47.2 Ventricular tachycardia; E66.9 Obesity, unspecified; Z93.1 Gastrostomy status; G60.9 Hereditary and idiopathic neuropathy, unspecified; Z79.1 Long term (current) use of non-steroidal anti-inflammatories (NSAID); Z68.30 Body mass index [BMI] 30.0-30.9, adult; Z79.899 Other long term (current) drug therapy; Z88.8 Allergy status to other drugs, medicaments and biological substances; Z98.84 Bariatric surgery status; I10 Essential (primary) hypertension; D64.9 Anemia, unspecified; R73.03 Prediabetes
CPT/HCPCS: 36415; 80053; 82607; 82746; 84425; 85025; 85610; 99221; A9270-GY; J1650; Q0164